=== PATIENT | male | born 1965 | race African-American/Black ===

== ENCOUNTER 2021-01-12 11:47 | Outpatient (REF) | payer MEDICARE, SELFPAY ==
[2021-01-12 13:41] LABS: Hematocrit 40.2 % (42-52); Hemoglobin 13.9 g/dl (14.0-18.0); Mean Corpuscular HGB Conc 34.6 g/dl (31.0-36.0); Mean Corpuscular Hemoglobin 30.7 pg (27.0-33.0); Mean Corpuscular Volume 88.7 fL (80-98); Mean Platelet Volume 10.8 fL (9.4-12.4); Platelet Count 328 X10*3/uL (160-400); Red Blood Count 4.53 X10*6/uL (4.60-5.80); Red Cell Distribution Width 13.1 % (11.0-16.0); White Blood Count 4.8 X10*3/uL (4.8-10.8)
[2021-01-12 14:11] LABS: Alanine Aminotransferase 21 U/L (0-40); Albumin Level 4.3 g/dL (3.5-5.0); Alkaline Phosphatase 95 U/L (39-117); Amylase 178 U/L (28-100); Aspartate Amino Transferase 18 U/L (5-37); Bilirubin Direct 0.2 mg/dL (0.0-0.5); Bilirubin Total 0.7 mg/dL (0.0-1.0); Lipase 30 U/L (8-78); Total Protein 7.2 g/dL (6.5-8.0)
== END 2021-01-12 11:48 | disposition home or self-care (01) ==
LOC: HO.HMGCLDS 11:47
PROVIDERS: PCP Internal Medicine; Visit Provider Physician Assistant
DX: R10.9 Unspecified abdominal pain (principal); R11.0 Nausea; R63.0 Anorexia; R19.7 Diarrhea, unspecified
CPT/HCPCS: 36415; 80076; 82150; 83690; 85027

== ENCOUNTER 2021-01-14 09:32 | Outpatient (REF) | payer MEDICARE, SELFPAY | END 2021-01-14 09:33 | disposition home or self-care (01) | LOC: HO.HMGCLNP 09:32 | PROVIDERS: Visit Provider Physician Assistant | DX: R19.7 Diarrhea, unspecified (principal); R63.0 Anorexia; R10.9 Unspecified abdominal pain | CPT/HCPCS: 87045; 87046; 87338 ==

== ENCOUNTER 2021-01-17 11:05 | Outpatient (REF) | payer MEDICARE, SELFPAY ==
[2021-01-17 14:32] LABS: Glucose Urine UA NEG (NEG); Leukocyte Esterase Urine NEG (NEG); Nitrite Urine NEG (NEG); Specific Gravity - Urine 1.015 (1.005-1.025); Urine Blood NEG (NEG); Urine Ketones NEG (NEG); Urine Protein NEG (NEG-TRACE)
[2021-01-17 14:42] LABS: Appearance Urine CLEAR; Color Urine YELLOW
[2021-01-17 14:49] LABS: Alanine Aminotransferase 31 U/L (0-40); Albumin Level 4.5 g/dL (3.5-5.0); Alkaline Phosphatase 98 U/L (39-117); Anion Gap 14 (12-20); Aspartate Amino Transferase 21 U/L (5-37); Bilirubin Total 0.9 mg/dL (0.0-1.0); Blood Urea Nitrogen 12 mg/dL (9-16); Calcium 10.3 mg/dL (8.4-10.2); Carbon Dioxide 35 mmol/L (22-29); Chloride 95 mmol/L (96-108); Estimated Glomerular Filt Rate > 60; Glucose Random 94 mg/dL (60-115); Potassium 3.7 mmol/L (3.3-5.1); Sodium 140 mmol/L (135-145); Total Protein 7.8 g/dL (6.5-8.0)
[2021-01-17 15:22] LABS: Erythrocyte Sedimentation Rate 17 MM/HR (0-15)
[2021-01-18 19:56] LABS: Gliadin Deamidated IgA Ab 5 Units; Gliadin Deamidated IgG Ab 2 Units
[2021-01-21 12:52] LABS: Transglutaminase Ab IgG 3 U/mL
== END 2021-01-17 11:06 | disposition home or self-care (01) ==
LOC: HO.10HDL 11:05
PROVIDERS: Visit Provider Internal Medicine
DX: R10.9 Unspecified abdominal pain (principal); R19.7 Diarrhea, unspecified; R11.2 Nausea with vomiting, unspecified; R01.1 Cardiac murmur, unspecified; E78.00 Pure hypercholesterolemia, unspecified; I10 Essential (primary) hypertension
CPT/HCPCS: 36415; 80053; 81003; 83516; 85652

== ENCOUNTER 2021-02-04 07:51 | Outpatient (REF) | payer MEDICARE, SELFPAY ==
--- NOTE | ~2021-02-04 | US_ITS ---
EXAMINATION: US ABDOMEN COMPLETE CLINICAL INFORMATION: Unspecified abdominal pain. COMPARISON: None TECHNIQUE: Real-time imaging of the abdominal viscera. FINDINGS: PANCREAS: Normal. ABDOMINAL AORTA: The proximal, mid, and distal segments are normal in caliber. INFERIOR VENA CAVA: Visualized portions are normal. LIVER: Normal. The liver is normal in size. The liver contour is normal. Parenchymal echogenicity is normal. No focal hepatic lesion. There is no intrahepatic biliary duct dilatation seen. GALLBLADDER: Normal. The gallbladder is physiologically distended without evidence of stones, sludge, polyps, wall thickening or pericholecystic fluid. COMMON BILE DUCT: Normal in caliber measuring 0.33 cm in diameter. RIGHT KIDNEY: Normal. No hydronephrosis. No renal calculi or focal parenchymal lesions. The kidney measures 8.9 cm in maximum dimension. LEFT KIDNEY: Normal. No hydronephrosis. No renal calculi or focal parenchymal lesions. The kidney measures 9.9 cm in maximum dimension. SPLEEN: Normal. The spleen measures 6.4 cm in maximum dimension. FREE FLUID: None. US/US abdomen complete IMPRESSION: Unremarkable complete abdomen ultrasound.
== END 2021-02-04 07:52 | disposition home or self-care (01) ==
LOC: HO.US 07:51
PROVIDERS: PCP Internal Medicine; Visit Provider Internal Medicine
DX: R10.9 Unspecified abdominal pain (principal); I25.10 Atherosclerotic heart disease of native coronary artery without angina pectoris; I10 Essential (primary) hypertension; E78.5 Hyperlipidemia, unspecified
CPT/HCPCS: 76700; 93005; 99202

== ENCOUNTER 2021-02-15 06:21 | Outpatient (REF) | payer MEDICARE, SELFPAY ==
[2021-02-15 07:38] LABS: Cholesterol 181 mg/dL; HDL Cholesterol 49 mg/dL; LDL Cholesterol Calculated 118 mg/dl; Triglycerides 73 mg/dL
== END 2021-02-15 06:22 | disposition home or self-care (01) ==
LOC: HO.LAB 06:21
PROVIDERS: PCP Internal Medicine; Visit Provider Internal Medicine Cardiovascular Disease
DX: I25.10 Atherosclerotic heart disease of native coronary artery without angina pectoris (principal)
CPT/HCPCS: 36415; 80061

== ENCOUNTER 2021-02-27 10:33 | Outpatient (REF) | payer MEDICARE, SELFPAY ==
--- NOTE | ~2021-02-27 | XR_ITS ---
EXAMINATION: LEFT FOOT AND ANKLE X-RAY CLINICAL INFORMATION: Pain COMPARISON: None TECHNIQUE: 3 views of the left foot and 3 views of the left ankle FINDINGS: Left ankle: Bone alignment is normal. No fracture or dislocation is seen. The ankle mortise is normal. Soft tissues are normal. Left foot: There is hallux valgus deformity at the first MTP joint. Bone alignment is otherwise normal. No fracture or dislocation. Small osteophytes at the first MTP joint. Otherwise normal joint spaces. Prominent talar beak or talar spur. This is seen with talar coalition. No evidence of bony coalition seen. Soft tissues are unremarkable. XR/XR foot LT min 3V IMPRESSION: Left ankle: Unremarkable exam. Left foot: Hallux valgus deformity at the first MTP joint and small osteophytes. Prominent anterior talar beak or osteophyte. This can be seen with talar coalition. No evidence of bony coalition seen by x-ray.
--- NOTE | ~2021-02-27 | XR_ITS ---
EXAMINATION: LEFT FOOT AND ANKLE X-RAY CLINICAL INFORMATION: Pain COMPARISON: None TECHNIQUE: 3 views of the left foot and 3 views of the left ankle FINDINGS: Left ankle: Bone alignment is normal. No fracture or dislocation is seen. The ankle mortise is normal. Soft tissues are normal. Left foot: There is hallux valgus deformity at the first MTP joint. Bone alignment is otherwise normal. No fracture or dislocation. Small osteophytes at the first MTP joint. Otherwise normal joint spaces. Prominent talar beak or talar spur. This is seen with talar coalition. No evidence of bony coalition seen. Soft tissues are unremarkable. XR/XR ankle LT min 3V IMPRESSION: Left ankle: Unremarkable exam. Left foot: Hallux valgus deformity at the first MTP joint and small osteophytes. Prominent anterior talar beak or osteophyte. This can be seen with talar coalition. No evidence of bony coalition seen by x-ray.
== END 2021-02-27 10:34 | disposition home or self-care (01) ==
LOC: HO.XRAY 10:33
PROVIDERS: PCP Internal Medicine; Visit Provider Internal Medicine
DX: M79.672 Pain in left foot (principal); M25.572 Pain in left ankle and joints of left foot
CPT/HCPCS: 73610; 73630

== ENCOUNTER → 2021-03-08 07:26 | Outpatient (REF) | payer MEDICARE, SELFPAY ==
--- NOTE | 2021-03-08 07:28 | CA_ITS ---
Transthoracic Echocardiogram Patient (Last, First, Middle): Melissa Gallagher, Gender: Male Date of : 1965 Age: 55 Procedure Date: 03/08/2021 Procedure Type: Transthoracic Echocardiogram Location: OP Height: 175.26 cm Weight: 79.38 kg BSA: 1.95 m2 Heart Rate: bpm BP: 118 / 60 mmHg Ore Grader: Referring MD: Zak Foster MD Symptoms: I42.9 - Cardiomyopathy, unspecified Study Quality: Good ECG Rhythm: Sinus Conclusions: - Normal left ventricular size and systolic function. - Diastolic function is normal for age. - Normal right ventricular cavity size and systolic function. - The left atrium is likely dilated. - There is mild tricuspid valve regurgitation. Findings Left Ventricle Normal left ventricular size and systolic function. There is mildly increased left ventricular wall thickness. The visually estimated ejection fraction is between 60-65%. There is no evidence of regional wall motion abnormalities. Diastolic function is normal for age. Right Ventricle Normal right ventricular cavity size and systolic function. Atria The left atrium is likely dilated. Aortic Valve Normal aortic valve structure and function. There is no aortic valve stenosis. There is no aortic valve regurgitation. Mitral Valve The mitral valve appears normal. There is trace mitral valve regurgitation. There is no mitral valve stenosis. Pulmonic Valve Normal pulmonic valve structure and function. There is trace pulmonic valve regurgitation. Tricuspid Valve Normal tricuspid valve structure. There is mild tricuspid valve regurgitation. Normal right atrial pressure. There is no evidence of pulmonary hypertension. Great Vessels All visible segments of the aorta are normal in size. The visualized portions of the pulmonary artery and branches are normal. Venous The inferior vena cava is normal in size and collapses greater than 50% with inspiration. Pericardium/Pleural There is no evidence of pericardial effusion. Prior Study Comparison No prior study available for comparison. Measurements 2D Linear Measurements IVSd: 1.25 0.6-0.9/0.6-1.0 cm LVIDd: 4.52 3.9-5.3/4.2-5.9 cm LVIDd Index: 2.32 2.4-3.2/2.2-3.1 cm/m2 LVIDs: 2.88 2.0-3.6 cm LVPWd: 1.26 0.7-1.1 cm Ao Root: 3.10 2.1-3.5 cm LA Diam: 3.90 2.7-3.8/3.0-4.0 cm LAIDs Index: 2.00 1.5-2.3 cm/m2 LV Mass: 265.29 67-162/88-224 g LV Mass Index: 136.04 43-95/49-115 g/m2 LVOT Diam: 2.20 3.0+(-)1.3 cm Mitral Valve MV Pk E: 0.81 MV PK A: 0.56 MV Decel Time: 246.00 E/A: 1.40 E'Lateral: 13.40 E'Medial: 9.79 E/E' Med: 8.20 E/E' Lat: 6.00 PHT: 72.00 MVA PHT: 3.06 Decel [place]: 3.28 Aortic Valve AoV Pk Dwayne: 1.72 AoV Mn Dwayne: 0.87 AoV VTI: 0.33 AoV Pk Grad: 12.00 Aov Mn Grad: 4.00 OSMIN Cont.VTI: 2.48 LVOT LVOT Pk Dwayne: 0.89 LVOT Mn Dwayne: 0.57 LVOT VTI: 0.22 LVOT Pk Grad: 3.00 LVOT Mn Grad: 2.00 LVOT Diam: 2.20 LVOT Area: 3.80 Diastolic Function MV Pk E: 0.81 MV Pk A: 0.56 E/A: 1.40 E'Medial: 9.79 E/E' Med: 8.20 E' Laterial: 13.40 E/E' Lat: 6.00 Tricuspid Valve TR Pk Dwayne: 2.44 TR Pk Grad: 24.00 Great Vessels Aorta Ao Root-2D: 3.10 2.0-3.7 cm Ao Asc: 3.10 2.1-3.4 cm Pulmonary Valve PV Pk Dwayne: 1.05 Peak PV Grad: 4.00 Updated in Other Vendor System with Status of Final Zak Foster MD electronically signed on 03/10/2021 1:32:31 PM with status of Final
--- NOTE | 2021-03-08 07:28 | CA_ITS ---
Acquisition Time: 2021-03-08 08:08:33 Total Exercise Time: 00:08:09 Test Indications: CP Medications: SEE CHART Protocol: ESA Max HR: 129 BPM 79% of Pred: 163 BPM Max BP: 218/040 mmHG Max Work Load: 10.1 METS Exercise stress test with exercise 8 min 9 sec acheiving heart rate 127, 78% MPHR with moderate shortness of breath, 7/10 mid chest tightness, lightheadedness and request to stop exercise, with isolated PVCs during exercise, with hypertensive response to exercise with max BP 218/40, with nondiagnostic EKG for ischemia due to suboptimal heart rate, without ST changes noted. In recovery his symptoms gradually resolved and BP returned to baseline. Test reviewed with Dr Foster. Referred By: Zak Foster Overread By: CHRIS NAYAK
== END ==
LOC: HO.CARD 07:26
PROVIDERS: PCP Internal Medicine; Visit Provider Internal Medicine Cardiovascular Disease
DX: I25.10 Atherosclerotic heart disease of native coronary artery without angina pectoris (principal); I42.9 Cardiomyopathy, unspecified
CPT/HCPCS: 93017; 93306

== ENCOUNTER → 2021-03-20 07:59 | Outpatient (BNVA) | payer MEDICARE, SELFPAY | PROVIDERS: PCP Internal Medicine; Visit Provider Physician Assistant | DX: R19.7 Diarrhea, unspecified (principal); R10.9 Unspecified abdominal pain; R29.2 Abnormal reflex; J39.2 Other diseases of pharynx; R11.0 Nausea; I25.10 Atherosclerotic heart disease of native coronary artery without angina pectoris; I10 Essential (primary) hypertension; E78.00 Pure hypercholesterolemia, unspecified; G47.33 Obstructive sleep apnea (adult) (pediatric); Z87.891 Personal history of nicotine dependence; Z95.5 Presence of coronary angioplasty implant and graft; Z99.89 Dependence on other enabling machines and devices; Z79.899 Other long term (current) drug therapy | CPT/HCPCS: 99202 ==

== ENCOUNTER → 2021-03-29 08:31 | Outpatient (REF) | payer MEDICARE, SELFPAY ==
--- NOTE | ~2021-03-29 | NM_ITS ---
Myocardial perfusion study Indication: Chest discomfort to evaluate for myocardial ischemia Technique: The patient was brought in for a Lexiscan perfusion study on 03/29/2021. Patient performed low-level exercise and was injected 0.4 mg of Lexiscan intravenously. Within a minute of injection, 25 mCi of sestamibi was given intravenously. Images were obtained using the SPECT gamma camera interlaced with the gating device. Images were obtained in supine position. Resting perfusion study was performed on 04/01/2021. Patient was administered 25 mCi of sestamibi intravenously at rest. Images were then obtained in supine position. Images obtained with and without CT attenuation. Total DLP 139 mGy-cm. Images were processed with the software and compared side to side in short axis, horizontal long axis and vertical long axis views. Findings: The stress perfusion study showed nonattenuated images show mildly reduced uptake in the basal and mid inferolateral and moderately reduced uptake in the apical inferolateral as well as mildly reduced uptake in the lateral wall of the LV myocardium. Remainder of the LV myocardium is normally perfused. Attenuation corrected images show normal uptake in all segments of myocardium with mildly reduced uptake in the apex of the LV myocardium.. The gated study shows normal LV systolic function with calculated LVEF of 65%. LV cavity is normal size. The gated study shows normal systolic wall thickening and contraction of segments. Resting study shows nonattenuated images show improved uptake in the lateral as well as inferolateral wall of the LV myocardium. Impression corrected images show no change in perfusion. This suggest over correction attenuation corrected images are stress perfusion study. Gating at rest reveals normal systolic wall motion with ejection fraction at 55%. The findings are consistent with nonattenuated images suggestive of reversible defect of the inferolateral and lateral wall suggestive of ischemia in circumflex territory. Attenuation corrected images appear to be artefactually over corrected. NM/NM robles perf SPECT rest & str Impression: 1. Myocardial perfusion imaging study shows mild to moderate intensity inferolateral and lateral ischemia in circumflex territory 2. Gated LVEF is 65% 3. Transient ischemic dilatation not present EKG is nondiagnostic for ischemia
--- NOTE | 2021-03-29 08:36 | CA_ITS ---
Acquisition Time: 2021-03-29 08:40:10 Total Exercise Time: 00:02:00 Test Indications: CP, SOB Medications: SEE CHART Protocol: LEXISCAN Max HR: 105 BPM 64% of Pred: 163 BPM Max BP: 148/078 mmHG Max Work Load: 1.0 METS Pharmacological stress test using Lexiscan while sitting and kicking his feet. Pt tolerated well. Denies any anginal sx. EKG without any arrhythmias, non-diagnostic for ischemia. Nuclear images to follow. Normotensive response to test. Test reviewed with Dr. Foster. Referred By: Yamila Estrella Overread By: Ankita Raya NP
== END ==
LOC: HO.CARD 08:31
PROVIDERS: Visit Provider Nurse Practitioner Family
DX: R07.89 Other chest pain (principal); R94.39 Abnormal result of other cardiovascular function study
CPT/HCPCS: 78452; 93017; A9500; J0280; J2785

== ENCOUNTER → 2021-04-03 08:44 | Outpatient (BNVA) | payer MEDICARE, SELFPAY | PROVIDERS: PCP Internal Medicine; Referring Provider Internal Medicine; Visit Provider Internal Medicine Cardiovascular Disease | DX: Z01.810 Encounter for preprocedural cardiovascular examination (principal); R94.39 Abnormal result of other cardiovascular function study; R00.2 Palpitations | CPT/HCPCS: 99212 ==

== ENCOUNTER → 2021-04-10 10:55 | Outpatient (REF) | payer MEDICARE, SELFPAY ==
--- NOTE | 2021-04-10 11:00 | HM_ITS ---
Underlying rhythm is sinus; Average ventricular rate 69/min; range 47-116/min; Rare PACs (0.05%); No PVCs noted; No atrial fibrillation or flutter; Patient events- dizziness/near syncope, short of breath, rapid heart beat - rhythm is sinus during these times; (Total monitoring time 2 days). MTDD
== END ==
LOC: HO.CARD 10:55
PROVIDERS: Visit Provider Internal Medicine Cardiovascular Disease
DX: R00.2 Palpitations (principal)
CPT/HCPCS: 93242

== ENCOUNTER 2021-05-15 07:25 | Day surgery (SDC) | payer MEDICARE, SELFPAY ==
[2021-05-09 14:18] VITALS: BMI 24.9
--- NOTE | 2021-05-10 12:43 | HO.ANESPROP2 ---
Documented by User: Christa Puckett NP 05/14/21 09:56 HPI - Anesthesia Eval Consult details Narrative: 55yo M for Upper Endoscopy and Colonoscopy Cardiac cleared @ [facility]: He is complaining of chest pain or shortness of breath.? Stress testing has been abnormal.? He also has GI issues ongoing.? He was able to exercise for 10 metabolic equivalents on treadmill.? I think he can proceed endoscopy with a intermediate risk for perioperative complications.? After the endoscopy we can pursue diagnostic angiography on him.? The reason for doing endoscopy before cardiac catheterization is that in case he has any significant coronary disease and we performed PCI then he will require dual antiplatelet therapy and may not be able to get endoscopy for few months.? I think he is not high risk for it given his functional capacity clearly being more than 4 metabolic equivalents. Case reviewed with Dr Stevie HERRERA Active Problems Active Problems: All Active Problems (Updated 05/09/21 @ 14:09 by Sally Ozuna RN) Frequent loose stools (Acute) Essential hypertension (Acute) Hyperlipidemia (Acute) Abnormal stress ECG with treadmill (Acute) Chest discomfort (Acute) Palpitations (Acute) Abnormal stress test (Acute) Preop cardiovascular exam (Acute) Left ankle pain (Acute) Left foot pain (Acute) Coronary artery disease (Acute) Overweight (BMI 25.0-29.9) (Acute) Seborrheic dermatitis of scalp (Acute) Cardiac murmur (Acute) Lumbar degenerative disc disease (Acute) Pure hypercholesterolemia (Acute) Benign essential hypertension (Acute) Obstructive sleep apnea (Acute) Diarrhea (Acute) Anorexia (Acute) Nausea (Acute) Abdominal pain (Acute) Past Medical History Medical History (Updated 05/09/21 @ 14:09 by Sally Ozuna RN) Abdominal pain Anorexia Benign essential hypertension Cardiac murmur Cervical disc disease Coronary artery disease COVID-19 vaccine series completed Diarrhea Left ankle pain Left foot pain Lumbar degenerative disc disease Nausea Obstructive sleep apnea Overweight (BMI 25.0-29.9) Pure hypercholesterolemia Seborrheic dermatitis of scalp Family History Family History Father Hypertension Mother Hypertension Surgical History Surgical History History of fusion of cervical spine History of heart artery stent S/P rotator cuff surgery Social History Social History Housing: House Alcohol intake: current Alcohol intake frequency: a few times a week Alcohol type: beer Patient Tobacco Use Status: Former Tobacco user Use of substances other than those prescribed or required for medical reasons: No Have you been hit, kicked, punched, or otherwise hurt by someone within the past year? If so, by whom?: No Are you DNR?: No Advance Directives Information Provided: Yes ( [place]) Advance Directives on File: No Recently lost weight without trying: No Eating poorly because of decreased appetite: No Nutrition Risks: No Nutritional Risk Poor oral hygiene: No service: Yes ([employer]) Current occupational status: [employer] Allergies Allergy/AdvReac Type Severity Reaction Status Date / Time No Known Allergies Allergy Verified 04/03/21 08:50 Home Medications Medication Instructions Recorded Confirmed Last Taken Type hydrochlorothiazide 25 mg tablet 25 mg PO DAILY 01/12/21 05/09/21 Unknown History aspirin 81 mg tablet,delayed 81 mg PO DAILY 01/17/21 05/09/21 05/14/21 History release Exam Exam Date and Time: May 10, 2021 1243 Height,Weight and Vital Signs: Height 5 ft 9 in Weight 76.657 kg Pertinent Lab Results Pertinent Lab Results: Laboratory Tests 01/12/21 01/17/21 12:00 11:11 WBC 4.8 Hgb 13.9 L Hct 40.2 L Plt Count 328 Sodium 140 Potassium 3.7 Chloride 95 L Carbon Dioxide 35 H BUN 12 Creatinine 1.06 Narrative Narrative: EKG 01/2021 Sinus bradycardia 55 beats per minute, minimal voltage criteria for left ventricular hypertrophy, QTC 384 milliseconds. ECHO 02/2021 Conclusions: - Normal left ventricular size and systolic function.? - Diastolic function is normal for age.? - Normal right ventricular cavity size and systolic function.? ? - The left atrium is likely dilated. ? - There is mild tricuspid valve regurgitation. ?? NM robles perf SPECT rest & str 03/2021 Impression: ? 1.? Myocardial perfusion imaging study shows mild to moderate intensity inferolateral and lateral ischemia in circumflex territory 2.? Gated LVEF is 65% 3. Transient ischemic dilatation not present ? EKG is nondiagnostic for ischemia Assessment and Plan Assessment Anesthesia Assessment: Chart Reviewed Documented by User: Alyce Villalpando MD 05/15/21 08:18 [facility] Past Medical History Medical History (Updated 05/09/21 @ 14:09 by Sally Ozuna RN) Abdominal pain Anorexia Benign essential hypertension Cardiac murmur Cervical disc disease Coronary artery disease COVID-19 vaccine series completed Diarrhea Left ankle pain Left foot pain Lumbar degenerative disc disease Nausea Obstructive sleep apnea Overweight (BMI 25.0-29.9) Pure hypercholesterolemia Seborrheic dermatitis of scalp Family History Family History Father Hypertension Mother Hypertension Family history of problems with anesthesia: No Surgical History Surgical History History of fusion of cervical spine History of heart artery stent S/P rotator cuff surgery History of Problems with Anesthesia: No Social History Social History Housing: House Alcohol intake: current Alcohol intake frequency: a few times a week Alcohol type: beer Patient Tobacco Use Status: Former Tobacco user Use of substances other than those prescribed or required for medical reasons: No Have you been hit, kicked, punched, or otherwise hurt by someone within the past year? If so, by whom?: No Are you DNR?: No Advance Directives Information Provided: Yes ( [place]) Advance Directives on File: No Recently lost weight without trying: No Eating poorly because of decreased appetite: No Nutrition Risks: No Nutritional Risk Poor oral hygiene: No service: Yes ([employer]) Current occupational status: disabled Meds Allergies Allergy/AdvReac Type Severity Reaction Status Date / Time No Known Allergies Allergy Verified 04/03/21 08:50 Home Medications Medication Instructions Recorded Confirmed Last Taken Type hydrochlorothiazide 25 mg tablet 25 mg PO DAILY 01/12/21 05/09/21 Unknown History aspirin 81 mg tablet,delayed 81 mg PO DAILY 01/17/21 05/09/21 05/14/21 History release Exam Airway Mallampati Class: II (Missing some teeth, nothing loose) TM Dist: >3cm Neck ROM: Full Heart: rrr Lungs: cta bl Assessment and Plan Assessment Anesthesia Assessment: Anesthesia Plan Discussed and Chart Reviewed Final Anesthetic Review Family History of Problems with Anesthesia: No History of Problems with Anesthesia: No NPO: Yes ASA Class: III Final Preanesthetic Review: No Changes in Pt Med Stat, Meds/Allgs Chart Reviewed and Consent Obtained/Reviewed Patient Risk: Intermediate Procedure Risk: Intermediate Anesthetic Plan Anesthetic Plan: MAC: Disposition: Standard PACU
[2021-05-15 07:41] VITALS: BP 168/81; PULSE 78; RESP 19; TEMP 36.3; O2SAT 95
[2021-05-15] MEDS: Lactated Ringers 1,000 ML 100 ML IVCONT (08:01)
--- NOTE | 2021-05-15 08:39 | P.HPSUR_ITS ---
Pre-Procedural Eval Section A Date of Service: 05/15/21 Section B Chief Complaint: diarrhea,nausea Relevant Family History (Specify if Yes): No Relevant Social History: Other (specify) ([place]) Present Medications: see Short Stay Collaborative assessment Medical History: Significant History (Abdominal pain Anorexia Benign essential hypertension Cardiac murmur Cervical disc disease Coronary artery disease COVID- 19 vaccine series completed Diarrhea Left ankle pain Left foot pain Lumbar degenerative disc disease Nausea Obstructive sleep apnea Overweight (BMI 25.0- 29.9) Pure hypercholestero) History of Previous Operations: Relevant previous surgery/procedure and date(s) (rotator cuff, coronary stent) Allergies: Allergies Allergy/AdvReac Type Severity Reaction Status Date / Time No Known Allergies Allergy Verified 04/03/21 08:50 Review of Systems Sugical H&P ROS: Negative: Constitution, Cardiovascular, Respiratory, Neurological, Psychiatric, Hem-Onc, Allergic/Immunologic, Gastrointestinal, Genitourinary, Musculoskeletal, Integumentary, Endocrine and Ey es/Ears/Nose/Throat Exam Surgical H&P Exam: Normal: HEENT, Normal: Heart, Normal: Lungs, Normal: Extremities, Normal: Abdomen, Normal: Skin and Normal: Neurological Plan Diagnosis/Plan: Unchanged I have reviewed the history and physical and performed a pertinent physical examination on my patient. No changes have occurred unless specified.
--- NOTE | 2021-05-15 08:40 | PM.OP ---
Brief Operative Note Date of Service: 05/15/21 Pre-op diagnosis: diarrhea, abdo pain, nausea Post-op diagnosis: same Procedure: see op note Surgeon: Lalitha Valadez MD Anesthesia: MAC Was an Buffing Turner And Counter used for this Procedure?: No Estimated blood loss (mL): 0 Condition: stable Disposition: PACU
--- NOTE | 2021-05-15 09:20 | W.PM.OPN ---
Operative Note Operative Note Date of Service: 05/15/21 Narrative: Operative Information Procedure Description: EGD, Colonoscopy FLEXIBLE TRANSORAL UPPER GASTROINTESTINAL ENDOSCOPY AND COLONOSCOPY PROCEDURE NOTE UPPER ENDOSCOPY Consent: Indications for the procedure and potential complications of bleeding, perforation, reaction to medications and missed diagnosis were discussed with the patient and informed consent was obtained. Instrument: Olympus GIF H 190 J mid size upper endoscope Monitoring: Vital signs and clinical assessment, continuous EKG monitoring, Pulse oximetry, Carbon Dioxide monitoring and blood pressure monitoring were done throughout the procedure. Procedure: The patient was placed in the left lateral decubitis position and pre-procedure medications were administered and a bite block was placed. The endoscope was inserted into the mouth and advanced under direct vision to the third part of duodenum. A careful inspection was made as the upper endoscope was withdrawn including a retroflexed examination of the proximal stomach; Findings and interventions are described below. Findings: Larynx:normal Esophagus: GE junction at 42 cm, diaphragm hiatus at 42 cm, normal mucosa -random bx taken Stomach: Patchy erythema. Biopsies were obtained. Grade 2 flap valve on retroflexed examination of the cardia. Duodenum: Normal bulb and descending duodenum, bx taken Intervention: Biopsies as noted above COLONOSCOPY Instrument: Olympus variable stiffness pediatric scope 190L Colonoscopy Monitoring: Vital signs and clinical assessment, continuous EKG monitoring, Pulse oximetry, Carbon Dioxide monitoring and blood pressure monitoring were done throughout the procedure. Colon withdrawal time was 18 minutes. Procedure: The patient was placed in the left lateral decubitis position and pre-procedure medications were administered. After a digital rectal examination of the ano-rectum, the video colonoscope was inserted into the rectum and advanced through the colon to the cecum/TI. The colonoscope was slowly withdrawn in a retrograde panoramic fashion and the colon mucosa was carefully examined including a retroflexed view of the rectum. Findings and interventions are described below. Procedure Difficulty:easy Findings: Terminal Ileum-normal, bx taken random colon bx taken Cecum:normal Ascending Colon: 5-7 mm sessile polyp removed with forceps, 10 mm sessile polyp removed with cold snare Transverse Colon -normal Descending Colon:normal Sigmoid Colon: x 2 sessile polyps 11-12 mm removed with cold snare Rectum: Retroflexion with small internal hemorrhoids, grade I Anorectum - normal Colon preparation: [place] Bowel Preparation Scale Right colon; 2 Transverse colon: 2 Left colon; 2 (0 = Unprepared colon segment with mucosa not seen due to solid stool that cannot be cleared. 1 = Portion of mucosa of the colon segment seen, but other areas of the colon segment not well seen due to staining, residual stool and/or opaque liquid. 2 = Minor amount of residual staining, small fragments of stool and/or opaque liquid, but mucosa of colon segment seen well. 3 = Entire mucosa of colon segment seen well with no residual staining, small fragments of stool or opaque liquid) Impression and Post Procedure Diagnosis: Endoscopy Findings: gastritis Colonoscopy Findings: polyps internal hemorrhoids Plan: Await Pathology results Repeat Colonoscopy in 3-4 years due to polyps or earlier if clinically indicated High fiber diet leaflet avoid straining at stool, epsom salts and sitz bath, anusol supps or cream if h pylori pos then treat Above findings were reviewed with the patient and relevant handouts were provided if indicated.
[2021-05-15 09:23] VITALS: BP 125/68; PULSE 69; RESP 16; TEMP 36.4; O2SAT 100
[2021-05-15 09:38] VITALS: BP 139/73; PULSE 72; RESP 16; TEMP 36.4; O2SAT 100
== END 2021-05-15 10:17 ==
LOC: HO.SSS 07:26
PROVIDERS: PCP Internal Medicine; Visit Provider Internal Medicine Gastroenterology
PROC: (CPT 45385; principal; 2021-05-15 08:30)
DX: R19.7 Diarrhea, unspecified (principal); R11.0 Nausea; D12.2 Benign neoplasm of ascending colon; D12.5 Benign neoplasm of sigmoid colon; K64.0 First degree hemorrhoids; K29.70 Gastritis, unspecified, without bleeding; I10 Essential (primary) hypertension
CPT/HCPCS: 45385; 45380; 43239; 88305; 88342

== ENCOUNTER → 2021-06-03 09:35 | Outpatient (BNVA) | payer MEDICARE, SELFPAY | PROVIDERS: PCP Internal Medicine; Referring Provider Internal Medicine; Visit Provider Internal Medicine Cardiovascular Disease | DX: I10 Essential (primary) hypertension (principal); R94.39 Abnormal result of other cardiovascular function study; R00.2 Palpitations | CPT/HCPCS: 99212 ==

== ENCOUNTER → 2021-06-05 09:29 | Outpatient (BNVA) | payer MEDICARE, SELFPAY | PROVIDERS: PCP Internal Medicine; Referring Provider Internal Medicine; Visit Provider Physician Assistant | DX: R19.7 Diarrhea, unspecified (principal); D12.6 Benign neoplasm of colon, unspecified | CPT/HCPCS: 99212 ==

== ENCOUNTER → 2021-07-01 10:17 | Outpatient (REF) | payer MEDICARE, SELFPAY | LOC: HO.SL 10:17 | PROVIDERS: PCP Internal Medicine; Visit Provider Nurse Practitioner Family | DX: G47.33 Obstructive sleep apnea (adult) (pediatric) (principal) | CPT/HCPCS: 95806 ==

== ENCOUNTER → 2021-07-11 12:27 | Outpatient (BNVA) | payer MEDICARE, SELFPAY | PROVIDERS: PCP Internal Medicine; Referring Provider Internal Medicine; Visit Provider Internal Medicine Cardiovascular Disease | DX: I10 Essential (primary) hypertension (principal); R07.89 Other chest pain; R94.39 Abnormal result of other cardiovascular function study | CPT/HCPCS: 99212 ==

== ENCOUNTER 2021-08-03 10:07 | Outpatient (REF) | payer MEDICARE, SELFPAY ==
[2021-08-03 11:04] LABS: Basophils Percent Auto 0.4 % (0-2); Eosinophils Absolute Auto 0.1 X10*3/uL (0.0-0.4); Eosinophils Percent Auto 1.1 % (0-4); Hematocrit 39.8 % (42.0-52.0); Hemoglobin 13.6 g/dl (14.0-18.0); Lymphocytes Absolute Auto 2.9 X10*3/uL (1.2-4.9); Lymphocytes Percent Auto 60.6 % (20-40); MANUAL DIFF FLAG SCAN; Mean Corpuscular HGB Conc 34.2 g/dl (31.0-36.0); Mean Corpuscular Hemoglobin 31.1 pg (27.0-33.0); Mean Corpuscular Volume 91.1 fL (80.0-98.0); Mean Platelet Volume 10.9 fL (9.4-12.4); Monocytes Absolute Auto 0.4 X10*3/uL (0.1-1.2); Monocytes Percent Auto 8.1 % (2-11); Neutrophils Absolute Auto 1.4 x10*3/uL (2.0-8.3); Neutrophils Percent Auto 29.8 % (45-73); Platelet Count 304 X10*3/uL (160-400); Red Blood Count 4.37 X10*6/uL (4.60-5.80); Red Cell Distribution Width 13.5 % (11.0-16.0); SCAN SMEAR FLAG 1; White Blood Count 4.7 X10*3/uL (4.8-10.8)
[2021-08-03 11:48] LABS: SLIDE REVIEW VERIFIED
== END 2021-08-03 10:08 | disposition home or self-care (01) ==
LOC: HO.LAB 10:07
PROVIDERS: PCP Internal Medicine; Visit Provider Internal Medicine Cardiovascular Disease
DX: I25.10 Atherosclerotic heart disease of native coronary artery without angina pectoris (principal); E78.00 Pure hypercholesterolemia, unspecified; I10 Essential (primary) hypertension; R10.9 Unspecified abdominal pain; E66.3 Overweight; M25.572 Pain in left ankle and joints of left foot; M79.672 Pain in left foot
CPT/HCPCS: 36415; 85025

== ENCOUNTER → 2021-08-19 13:08 | Outpatient (BNVA) | payer MEDICARE, SELFPAY | PROVIDERS: PCP Internal Medicine; Referring Provider Internal Medicine; Visit Provider Internal Medicine Cardiovascular Disease | DX: R00.2 Palpitations (principal); R07.89 Other chest pain | CPT/HCPCS: 99212 ==

== ENCOUNTER 2021-08-30 07:56 | Outpatient (REF) | payer MEDICARE, SELFPAY ==
[2021-08-30 08:16] LABS: MANUAL DIFF FLAG NO
[2021-08-30 08:41] LABS: Basophils Percent Auto 0.4 % (0-2); Eosinophils Absolute Auto 0.1 X10*3/uL (0.0-0.4); Eosinophils Percent Auto 1.8 % (0-4); Hematocrit 42.5 % (42.0-52.0); Hemoglobin 14.4 g/dl (14.0-18.0); Imm Gran Abs Auto 0.01 X10*3/uL (0.00-0.03); Imm Gran Pct Auto 0.2 % (0.0-0.4); Lymphocytes Absolute Auto 2.3 X10*3/uL (1.2-4.9); Lymphocytes Percent Auto 50.9 % (20-40); Mean Corpuscular HGB Conc 33.9 g/dl (31.0-36.0); Mean Corpuscular Hemoglobin 30.8 pg (27.0-33.0); Mean Corpuscular Volume 90.8 fL (80.0-98.0); Mean Platelet Volume 10.4 fL (9.4-12.4); Monocytes Absolute Auto 0.4 X10*3/uL (0.1-1.2); Monocytes Percent Auto 9.2 % (2-11); Neutrophils Absolute Auto 1.7 x10*3/uL (2.0-8.3); Neutrophils Percent Auto 37.5 % (45-73); Platelet Count 299 X10*3/uL (160-400); Red Blood Count 4.68 X10*6/uL (4.60-5.80); Red Cell Distribution Width 13.2 % (11.0-16.0); White Blood Count 4.6 X10*3/uL (4.8-10.8)
[2021-08-30 09:02] LABS: Alanine Aminotransferase 19 U/L (0-40); Albumin Level 4.3 g/dL (3.5-5.0); Alkaline Phosphatase 81 U/L (39-117); Anion Gap 12 (12-20); Aspartate Amino Transferase 17 U/L (5-37); Bilirubin Total 1.1 mg/dL (0.0-1.0); Blood Urea Nitrogen 8 mg/dL (9-16); Carbon Dioxide 30 mmol/L (22-29); Chloride 105 mmol/L (96-108); Cholesterol 285 mg/dL; Estimated Glomerular Filt Rate > 60; Glucose Fasting 99 mg/dL (60-99); HDL Cholesterol 61 mg/dL; LDL Cholesterol Calculated 200 mg/dl; Potassium 4.3 mmol/L (3.3-5.1); Sodium 143 mmol/L (135-145); Total Protein 7.4 g/dL (6.5-8.0); Triglycerides 120 mg/dL
[2021-08-30 09:27] LABS: Prostate Specific Antigen Scr 0.64 ng/mL (<0.05-4.0)
[2021-08-30 10:34] LABS: Creatinine Urine 334.56 mg/dL; Microalbum/Creatinine Ratio Ur 10.4 ug/mg cr
== END 2021-08-30 07:57 | disposition home or self-care (01) ==
LOC: HO.LAB 07:56
PROVIDERS: PCP Internal Medicine; Visit Provider Nurse Practitioner Family
DX: Z12.5 Encounter for screening for malignant neoplasm of prostate (principal); I10 Essential (primary) hypertension; E11.9 Type 2 diabetes mellitus without complications; E78.00 Pure hypercholesterolemia, unspecified
CPT/HCPCS: 36415; 80053; 80061; 82043; 84153; 85025

== ENCOUNTER → 2021-09-03 10:58 | Outpatient (BNVA) | payer MEDICARE, SELFPAY | PROVIDERS: PCP Internal Medicine; Referring Provider Internal Medicine; Visit Provider Psychiatry & Neurology Neurology | DX: G47.33 Obstructive sleep apnea (adult) (pediatric) (principal); G47.62 Sleep related leg cramps | CPT/HCPCS: 99202 ==

== ENCOUNTER → 2021-09-05 08:19 | Outpatient (REF) | payer MEDICARE, SELFPAY ==
--- NOTE | 2021-09-05 08:23 | HM_ITS ---
Conclusion: 1. Patient was monitored for total period of 13 days and 10 hours. 2. Baseline rhythm is sinus rhythm with average heart rate of 73 beats per minute 3. No significant pauses or bradycardia noted 4. Fifteen total episodes of supraventricular tachycardia with the longest episode lasting 13 beats 5. Rare ectopy noted with total burden of 0.02% 6. Patient reported event correlated with sinus tachycardia. MTDD
== END ==
LOC: HO.CARD 08:19
PROVIDERS: Visit Provider Internal Medicine Cardiovascular Disease
DX: R00.2 Palpitations (principal)
CPT/HCPCS: 93246

== ENCOUNTER 2021-11-27 09:00 | Outpatient (RCR) | payer OTHER, SELFPAY ==
[2021-11-22 13:03] VITALS: BP 122/69; PULSE 62
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
--- NOTE | 2021-12-16 10:43 | MHC.PT.DC ---
[facility] [place] Office [place] Office [place] Office [address] Alan Calderon [address] [phone] F: [phone] F: [phone] F: [phone] F: [phone] Physical Therapy Discharge Report Diagnosis: Low back pain Date of Surgery: NA Date of Evaluation: 11/22/21 Date of Discharge: 12/16/21 Treatments to Date: 3 Cancellations to Date: 0 No Shows to Date: Discharge Status: Visit Non-compliance Discharge Summary: Melissa has had 3 no shows and 1 cancellation. He is therefore being d/c from PT for non compliance. Electronically signed by: Sindy Malloy PT DPT Please sign and return to therapist. Thank you for your referral.
== END 2021-12-16 10:44 | disposition home or self-care (01) ==
LOC: HO.PT 09:00
PROVIDERS: PCP Internal Medicine; Visit Provider Internal Medicine
DX: M54.50 Low back pain, unspecified (principal)
CPT/HCPCS: 97110; 97112; 97161

== ENCOUNTER 2021-12-02 06:08 | Outpatient (REF) | payer OTHER, SELFPAY ==
[2021-12-02 06:19] LABS: MANUAL DIFF FLAG NO
[2021-12-02 07:11] LABS: Appearance Urine HAZY; Color Urine YELLOW; Glucose Urine UA NEG (NEG); Leukocyte Esterase Urine NEG (NEG); Nitrite Urine NEG (NEG); Specific Gravity - Urine >= 1.030 (1.005-1.025); UACC Culture Trigger NO; Urine Blood TRACE (NEG); Urine Ketones NEG (NEG); Urine Protein NEG (NEG-TRACE)
[2021-12-02 07:15] LABS: Basophils Percent Auto 0.2 % (0-2); Eosinophils Absolute Auto 0.2 X10*3/uL (0.0-0.4); Eosinophils Percent Auto 2.7 % (0-4); Hematocrit 44.4 % (42.0-52.0); Hemoglobin 14.9 g/dl (14.0-18.0); Imm Gran Abs Auto 0.01 X10*3/uL (0.00-0.03); Imm Gran Pct Auto 0.2 % (0.0-0.4); Lymphocytes Absolute Auto 3.1 X10*3/uL (1.2-4.9); Mean Corpuscular HGB Conc 33.6 g/dl (31.0-36.0); Mean Corpuscular Hemoglobin 31.1 pg (27.0-33.0); Mean Corpuscular Volume 92.7 fL (80.0-98.0); Mean Platelet Volume 10.8 fL (9.4-12.4); Monocytes Absolute Auto 0.4 X10*3/uL (0.1-1.2); Monocytes Percent Auto 7.2 % (2-11); Neutrophils Absolute Auto 2.2 x10*3/uL (2.0-8.3); Neutrophils Percent Auto 36.7 % (45-73); Platelet Count 321 X10*3/uL (160-400); Red Blood Count 4.79 X10*6/uL (4.60-5.80); Red Cell Distribution Width 13.4 % (11.0-16.0); White Blood Count 5.9 X10*3/uL (4.8-10.8)
[2021-12-02 07:24] LABS: Mucus Urine 1+ /LPF; RBC Urine 0-2 /HPF (0); Squamous Epithelial Cell Urine TRACE /LPF; WBC Urine 0 /HPF (0-4)
[2021-12-02 07:36] LABS: Alanine Aminotransferase 33 U/L (0-40); Albumin Level 4.3 g/dL (3.5-5.0); Alkaline Phosphatase 96 U/L (39-117); Anion Gap 11 (12-20); Aspartate Amino Transferase 22 U/L (5-37); Bilirubin Total 0.6 mg/dL (0.0-1.0); Blood Urea Nitrogen 13 mg/dL (9-16); Calcium 9.7 mg/dL (8.4-10.2); Carbon Dioxide 30 mmol/L (22-29); Chloride 104 mmol/L (96-108); Cholesterol 204 mg/dL; Estimated Glomerular Filt Rate > 60; Glucose Fasting 103 mg/dL (60-99); HDL Cholesterol 48 mg/dL; LDL Cholesterol Calculated 132 mg/dl; Potassium 4.4 mmol/L (3.3-5.1); Sodium 141 mmol/L (135-145); Total Protein 7.1 g/dL (6.5-8.0); Triglycerides 121 mg/dL
[2021-12-02 07:46] LABS: Erythrocyte Sedimentation Rate 5 MM/HR (0-15)
[2021-12-02 07:51] LABS: Uric Acid 4.7 mg/dL (3.4-7.0)
[2021-12-02 07:55] LABS: TSH reflex Free T4 0.88 uIU/mL (0.32-4.0); Vitamin D 25-OH Total 10.6 ng/mL (>30)
== END 2021-12-02 06:09 | disposition home or self-care (01) ==
LOC: HO.LAB 06:08
PROVIDERS: PCP Internal Medicine; Visit Provider Internal Medicine
DX: M25.572 Pain in left ankle and joints of left foot (principal); M79.672 Pain in left foot; I10 Essential (primary) hypertension; I25.10 Atherosclerotic heart disease of native coronary artery without angina pectoris; R10.9 Unspecified abdominal pain; E78.00 Pure hypercholesterolemia, unspecified; E55.9 Vitamin D deficiency, unspecified
CPT/HCPCS: 36415; 80053; 80061; 81001; 82306; 84443; 84550; 85025; 85652

== ENCOUNTER 2021-12-05 11:33 | Outpatient (REF) | payer OTHER, SELFPAY ==
--- NOTE | ~2021-12-05 | XR_ITS ---
EXAMINATION: XR KNEE, RIGHT CLINICAL INFORMATION: Right knee pain COMPARISON: None TECHNIQUE: Three views of the right knee. FINDINGS: No fracture or dislocation. No suprapatellar joint effusion. Joint spaces are maintained. No significant degenerative changes. No soft tissue swelling of the anterior knee. XR/XR knee RT 3V IMPRESSION: Unremarkable radiographs of the right knee.
== END 2021-12-05 11:34 | disposition home or self-care (01) ==
LOC: HO.XRAY 11:33
PROVIDERS: PCP Internal Medicine; Visit Provider Internal Medicine
DX: M25.561 Pain in right knee (principal)
CPT/HCPCS: 73562

== ENCOUNTER → 2022-01-22 13:43 | Outpatient (BNVA) | payer OTHER, SELFPAY | PROVIDERS: PCP Internal Medicine; Referring Provider Internal Medicine; Visit Provider Internal Medicine Cardiovascular Disease | DX: R06.02 Shortness of breath (principal) | CPT/HCPCS: 99212 ==

== ENCOUNTER 2022-02-21 14:53 | Outpatient (REF) | payer OTHER, SELFPAY ==
--- NOTE | 2022-02-21 17:38 | PFT_ITS ---
INDICATION: Shortness of breath. SPIROMETRY: FEV1 to FVC of 86% with an FEV1 of 3.49 L, which is 134% predicted, an FVC of 4.08 L, which is 122% predicted. No significant response to bronchodilators noted. Maximum voluntary ventilation 91% predicted. LUNG VOLUMES: Total lung capacity 107% predicted. DIFFUSION CAPACITY: DLCO 98% predicted. INTERPRETATION: No obstructive nor restrictive ventilatory defects have been identified. No significant response to bronchodilators noted. Normal lung volumes and normal diffusion capacity. If asthma is in the differential, methacholine challenge may be helpful in assessing for hyper-reactive airways, otherwise clinical correlation warranted. MD JUDITH Wilks/MODL / [id number]
== END 2022-02-21 14:54 | disposition home or self-care (01) ==
LOC: HO.RESP 14:53
PROVIDERS: PCP Internal Medicine; Visit Provider Internal Medicine Cardiovascular Disease
DX: R06.02 Shortness of breath (principal)
CPT/HCPCS: 94060; 94727; 94729

== ENCOUNTER → 2022-03-05 11:29 | Outpatient (BNVA) | payer OTHER, SELFPAY | PROVIDERS: PCP Internal Medicine; Visit Provider Psychiatry & Neurology Neurology | DX: G47.33 Obstructive sleep apnea (adult) (pediatric) (principal); G47.62 Sleep related leg cramps | CPT/HCPCS: 99212 ==

== ENCOUNTER 2022-03-06 06:18 | Outpatient (REF) | payer OTHER, SELFPAY ==
[2022-03-06 07:17] LABS: Basophils Percent Auto 0.6 % (0-2); Eosinophils Absolute Auto 0.1 X10*3/uL (0.0-0.4); Eosinophils Percent Auto 2.7 % (0-4); Hematocrit 39.6 % (42.0-52.0); Hemoglobin 13.7 g/dl (14.0-18.0); Lymphocytes Absolute Auto 3.6 X10*3/uL (1.2-4.9); Lymphocytes Percent Auto 69.1 % (20-40); MANUAL DIFF FLAG SCAN; Mean Corpuscular HGB Conc 34.6 g/dl (31.0-36.0); Mean Corpuscular Hemoglobin 31.5 pg (27.0-33.0); Mean Platelet Volume 10.7 fL (9.4-12.4); Monocytes Absolute Auto 0.4 X10*3/uL (0.1-1.2); Monocytes Percent Auto 7.6 % (2-11); Neutrophils Absolute Auto 1.1 x10*3/uL (2.0-8.3); Platelet Count 304 X10*3/uL (160-400); Red Blood Count 4.35 X10*6/uL (4.60-5.80); Red Cell Distribution Width 12.9 % (11.0-16.0); SCAN SMEAR FLAG 1; White Blood Count 5.3 X10*3/uL (4.8-10.8)
[2022-03-06 07:37] LABS: Alanine Aminotransferase 27 U/L (0-40); Alkaline Phosphatase 88 U/L (39-117); Anion Gap 11 (12-20); Aspartate Amino Transferase 26 U/L (5-37); Bilirubin Total 0.4 mg/dL (0.0-1.0); Blood Urea Nitrogen 13 mg/dL (9-16); Calcium 9.4 mg/dL (8.4-10.2); Carbon Dioxide 28 mmol/L (22-29); Chloride 107 mmol/L (96-108); Cholesterol 268 mg/dL; Estimated Glomerular Filt Rate > 60; Glucose Fasting 92 mg/dL (60-99); HDL Cholesterol 38 mg/dL; Potassium 4.2 mmol/L (3.3-5.1); Sodium 142 mmol/L (135-145); Triglycerides 781 mg/dL
[2022-03-06 08:01] LABS: Prostate Specific Antigen Scr 0.53 ng/mL (<0.05-4.0); TSH reflex Free T4 1.22 uIU/mL (0.32-4.0); Vitamin D 25-OH Total 16.8 ng/mL (>30)
[2022-03-06 08:05] LABS: Appearance Urine CLEAR; Color Urine YELLOW; Glucose Urine UA NEG (NEG); Leukocyte Esterase Urine NEG (NEG); Nitrite Urine NEG (NEG); PH 6.5 (5.0-8.0); Specific Gravity - Urine 1.025 (1.005-1.025); UACC Culture Trigger NO; Urine Blood TRACE (NEG); Urine Ketones NEG (NEG); Urine Protein NEG (NEG-TRACE)
[2022-03-06 08:22] LABS: SLIDE REVIEW VERIFIED
[2022-03-06 09:10] LABS: Squamous Epithelial Cell Urine TRACE /LPF; WBC Urine 0 /HPF (0-4)
== END 2022-03-06 06:19 | disposition home or self-care (01) ==
LOC: HO.LAB 06:18
PROVIDERS: PCP Internal Medicine; Visit Provider Internal Medicine
DX: Z00.00 Encounter for general adult medical examination without abnormal findings (principal); Z12.5 Encounter for screening for malignant neoplasm of prostate; I25.10 Atherosclerotic heart disease of native coronary artery without angina pectoris; E55.9 Vitamin D deficiency, unspecified; I10 Essential (primary) hypertension; E78.00 Pure hypercholesterolemia, unspecified
CPT/HCPCS: 36415; 80048; 80053; 80061; 81001; 81003; 82306; 84153; 84443; 85025

== ENCOUNTER 2022-04-01 10:53 | Outpatient (REF) | payer OTHER, SELFPAY ==
--- NOTE | ~2022-04-01 | XR_ITS ---
EXAMINATION: XR FOOT, LEFT CLINICAL INFORMATION: Left foot pain. COMPARISON: 02/27/2021 TECHNIQUE: AP, lateral, and oblique views of the left foot. FINDINGS: Hallux valgus with mild spurring along the medial eminence of the 1st metatarsal head. Mild 1st MTP joint osteoarthritis. No change. Prominent dorsal spurring of the distal talus. XR/XR foot LT min 3V IMPRESSION: Hallux valgus and degenerative findings as described, no change.
== END 2022-04-01 10:54 | disposition home or self-care (01) ==
LOC: HO.XRAY 10:53
PROVIDERS: PCP Internal Medicine; Visit Provider Internal Medicine
DX: M79.672 Pain in left foot (principal); M79.675 Pain in left toe(s)
CPT/HCPCS: 73630

== ENCOUNTER → 2022-04-03 10:57 | Outpatient (BNVA) | payer OTHER, SELFPAY | PROVIDERS: PCP Internal Medicine; Visit Provider Nurse Practitioner Family | DX: G47.33 Obstructive sleep apnea (adult) (pediatric) (principal); M54.50 Low back pain, unspecified; G47.62 Sleep related leg cramps | CPT/HCPCS: 99212 ==

== ENCOUNTER 2022-06-23 06:02 | Outpatient (REF) | payer OTHER, SELFPAY ==
[2022-06-23 07:57] LABS: Alanine Aminotransferase 22 U/L (0-40); Albumin Level 4.3 g/dL (3.5-5.0); Alkaline Phosphatase 93 U/L (39-117); Anion Gap 13 (12-20); Aspartate Amino Transferase 16 U/L (5-37); Bilirubin Total 0.7 mg/dL (0.0-1.0); Blood Urea Nitrogen 8 mg/dL (9-16); Calcium 9.5 mg/dL (8.4-10.2); Carbon Dioxide 27 mmol/L (22-29); Chloride 106 mmol/L (96-108); Cholesterol 181 mg/dL; Estimated Glomerular Filt Rate > 60; Glucose Fasting 109 mg/dL (60-99); HDL Cholesterol 51 mg/dL; LDL Cholesterol Calculated 113 mg/dl; Potassium 3.9 mmol/L (3.3-5.1); Sodium 142 mmol/L (135-145); Triglycerides 87 mg/dL
[2022-06-23 08:04] LABS: Appearance Urine Clear; Color Urine Yellow; Glucose Urine UA Negative (Negative); Leukocyte Esterase Urine Negative (Negative); Nitrite Urine Negative (Negative); PH 5.5 (5.0-9.0); Specific Gravity - Urine <= 1.005 (1.005-1.025); Urine Blood Negative (Negative); Urine Ketones Negative (Negative); Urine Protein Negative (Neg-Trace)
[2022-06-23 08:17] LABS: TSH reflex Free T4 1.35 uIU/mL (0.32-4.0)
== END 2022-06-23 06:03 | disposition home or self-care (01) ==
LOC: HO.LAB 06:02
PROVIDERS: PCP Internal Medicine; Visit Provider Internal Medicine
DX: E78.00 Pure hypercholesterolemia, unspecified (principal); E66.3 Overweight; I10 Essential (primary) hypertension; R10.9 Unspecified abdominal pain
CPT/HCPCS: 36415; 80053; 80061; 81003; 84443

== ENCOUNTER → 2022-07-30 13:08 | Outpatient (BNVA) | payer OTHER, SELFPAY | PROVIDERS: PCP Internal Medicine; Referring Provider Internal Medicine; Visit Provider Internal Medicine Cardiovascular Disease | DX: I20.8 Other forms of angina pectoris (principal); R06.02 Shortness of breath | CPT/HCPCS: 93005; 99212 ==

== ENCOUNTER 2022-08-13 09:12 | Outpatient (REF) | payer OTHER, SELFPAY ==
--- NOTE | ~2022-08-13 | XR_ITS ---
EXAMINATION: XR LUMBOSACRAL SPINE CLINICAL INFORMATION: Low back pain COMPARISON: None TECHNIQUE: Three views of the lumbosacral spine. FINDINGS: There appears to be 5 nonrib-bearing lumbar style vertebral bodies with partial lumbarization of the S1 vertebral body. Lumbar vertebral body heights are maintained. Disc spaces are relatively well-maintained diffusely. Small osteophyte noted off the anterior L5 vertebral body. Sacroiliac joints are symmetric. Vascular calcifications noted. XR/XR lumbar spine 2-3V IMPRESSION: Minimal degenerative changes of the lower lumbar spine. No compression deformity.
== END 2022-08-13 09:13 | disposition home or self-care (01) ==
LOC: HO.XRAY 09:12
PROVIDERS: PCP Internal Medicine; Visit Provider Internal Medicine
DX: M54.50 Low back pain, unspecified (principal)
CPT/HCPCS: 72100

== ENCOUNTER → 2022-09-04 13:38 | Outpatient (BNVA) | payer OTHER, SELFPAY | PROVIDERS: PCP Internal Medicine; Visit Provider Hospitalist | DX: J45.40 Moderate persistent asthma, uncomplicated (principal); J31.0 Chronic rhinitis; R06.02 Shortness of breath | CPT/HCPCS: 99202 ==

== ENCOUNTER 2022-09-29 09:47 | Outpatient (REF) | payer OTHER, SELFPAY ==
--- NOTE | ~2022-09-29 | XR_ITS ---
EXAMINATION: XR CHEST CLINICAL INFORMATION: Shortness of breath COMPARISON: None TECHNIQUE: 2 views of the chest were obtained. FINDINGS: No significant abnormality is noted involving the heart, lungs, mediastinum, bony thorax or soft tissues. XR/XR chest 2V IMPRESSION: Unremarkable chest examination.
[2022-09-29 10:02] LABS: MANUAL DIFF FLAG NO
[2022-09-29 10:42] LABS: Basophils Percent Auto 0.6 % (0-2); Eosinophils Absolute Auto 0.1 X10*3/uL (0.0-0.4); Eosinophils Percent Auto 2.1 % (0-4); Hematocrit 44.3 % (42.0-52.0); Hemoglobin 14.9 g/dl (14.0-18.0); Imm Gran Abs Auto 0.01 X10*3/uL (0.00-0.03); Imm Gran Pct Auto 0.2 % (0.0-0.4); Lymphocytes Absolute Auto 2.5 X10*3/uL (1.2-4.9); Lymphocytes Percent Auto 47.5 % (20-40); Mean Corpuscular HGB Conc 33.6 g/dl (31.0-36.0); Mean Corpuscular Hemoglobin 30.5 pg (27.0-33.0); Mean Corpuscular Volume 90.8 fL (80.0-98.0); Mean Platelet Volume 10.6 fL (9.4-12.4); Monocytes Absolute Auto 0.4 X10*3/uL (0.1-1.2); Monocytes Percent Auto 7.5 % (2-11); Neutrophils Absolute Auto 2.2 x10*3/uL (2.0-8.3); Neutrophils Percent Auto 42.1 % (45-73); Platelet Count 393 X10*3/uL (160-400); Red Blood Count 4.88 X10*6/uL (4.60-5.80); Red Cell Distribution Width 13.5 % (11.0-16.0); White Blood Count 5.3 X10*3/uL (4.8-10.8)
[2022-09-29 11:07] LABS: Alanine Aminotransferase 26 U/L (0-40); Albumin Level 4.3 g/dL (3.5-5.0); Alkaline Phosphatase 97 U/L (39-117); Anion Gap 11 (12-20); Aspartate Amino Transferase 22 U/L (5-37); Bilirubin Total 1.2 mg/dL (0.0-1.0); Blood Urea Nitrogen 10 mg/dL (9-16); Calcium 9.9 mg/dL (8.4-10.2); Carbon Dioxide 33 mmol/L (22-29); Chloride 105 mmol/L (96-108); Cholesterol 252 mg/dL; Estimated Glomerular Filt Rate > 60; Glucose Fasting 99 mg/dL (60-99); Glucose Random 99 mg/dL (60-115); HDL Cholesterol 59 mg/dL; LDL Cholesterol Calculated 159 mg/dl; Potassium 4.2 mmol/L (3.3-5.1); Sodium 145 mmol/L (135-145); Total Protein 7.3 g/dL (6.5-8.0); Triglycerides 170 mg/dL
[2022-09-29 11:34] LABS: Erythrocyte Sedimentation Rate 12 MM/HR (0-15)
[2022-09-30 06:23] LABS: Immunoglobulin E 210 kU/L (<OR=114)
== END 2022-09-29 09:48 | disposition home or self-care (01) ==
LOC: HO.LAB 09:47
PROVIDERS: Hospitalist; PCP Internal Medicine; Visit Provider Internal Medicine
DX: R06.02 Shortness of breath (principal); J45.909 Unspecified asthma, uncomplicated; E78.00 Pure hypercholesterolemia, unspecified
CPT/HCPCS: 36415; 71046; 80048; 80053; 80061; 82785; 85025; 85652

== ENCOUNTER → 2022-10-06 10:51 | Outpatient (BNVA) | payer OTHER, SELFPAY ==
[2022-10-02 13:00] VITALS: BP 128/72; BP 142/80; BMI 24.8
== END ==
PROVIDERS: PCP Internal Medicine; Visit Provider Nurse Practitioner Family
DX: G47.33 Obstructive sleep apnea (adult) (pediatric) (principal); G47.62 Sleep related leg cramps; M54.50 Low back pain, unspecified; Z99.89 Dependence on other enabling machines and devices
CPT/HCPCS: 99212

== ENCOUNTER → 2022-10-14 13:51 | Outpatient (BNVA) | payer OTHER, SELFPAY ==
[2022-10-02 13:00] VITALS: BP 128/72; BP 142/80; BMI 24.8
== END ==
PROVIDERS: PCP Internal Medicine; Visit Provider Hospitalist
DX: J31.0 Chronic rhinitis (principal); J45.40 Moderate persistent asthma, uncomplicated; R06.02 Shortness of breath; R05.3 Chronic cough; G47.33 Obstructive sleep apnea (adult) (pediatric)
CPT/HCPCS: 99212

== ENCOUNTER → 2023-02-13 08:55 | Outpatient (BNVA) | payer OTHER, SELFPAY ==
[2022-10-02 13:00] VITALS: BP 128/72; BP 142/80
[2022-12-25 09:16] VITALS: BMI 25.4
[2023-02-13 08:55] VITALS: BP 144/74
== END ==
PROVIDERS: PCP Internal Medicine; Referring Provider Internal Medicine; Visit Provider Internal Medicine Cardiovascular Disease
DX: R06.02 Shortness of breath (principal); I10 Essential (primary) hypertension
CPT/HCPCS: 99212

== ENCOUNTER 2023-03-11 06:26 | Outpatient (REF) | payer OTHER, SELFPAY ==
[2023-02-13 09:18] VITALS: BP 128/72; BP 142/80; BP 144/74; BMI 25.4
[2023-03-11 07:07] LABS: Basophils Percent Auto 0.6 % (0-2); Eosinophils Absolute Auto 0.2 X10*3/uL (0.0-0.4); Eosinophils Percent Auto 3.8 % (0-4); Hematocrit 42.2 % (42.0-52.0); Hemoglobin 14.2 g/dl (14.0-18.0); Lymphocytes Percent Auto 64.2 % (20-40); MANUAL DIFF FLAG SCAN; Mean Corpuscular HGB Conc 33.6 g/dl (31.0-36.0); Mean Corpuscular Hemoglobin 30.3 pg (27.0-33.0); Mean Corpuscular Volume 90.2 fL (80.0-98.0); Mean Platelet Volume 10.4 fL (9.4-12.4); Monocytes Absolute Auto 0.4 X10*3/uL (0.1-1.2); Monocytes Percent Auto 8.7 % (2-11); Neutrophils Absolute Auto 1.1 x10*3/uL (2.0-8.3); Neutrophils Percent Auto 22.7 % (45-73); Platelet Count 288 X10*3/uL (160-400); Red Blood Count 4.68 X10*6/uL (4.60-5.80); Red Cell Distribution Width 13.4 % (11.0-16.0); SCAN SMEAR FLAG 1; White Blood Count 4.7 X10*3/uL (4.8-10.8)
[2023-03-11 08:03] LABS: Alanine Aminotransferase 27 U/L (0-40); Albumin Level 3.9 g/dL (3.5-5.0); Alkaline Phosphatase 89 U/L (39-117); Anion Gap 11 (12-20); Aspartate Amino Transferase 18 U/L (5-37); Bilirubin Total 0.7 mg/dL (0.0-1.0); Blood Urea Nitrogen 13 mg/dL (9-16); Calcium 9.6 mg/dL (8.4-10.2); Carbon Dioxide 29 mmol/L (22-29); Chloride 108 mmol/L (96-108); Cholesterol 245 mg/dL; Estimated Glomerular Filt Rate > 60; Glucose Fasting 103 mg/dL (60-99); HDL Cholesterol 56 mg/dL; LDL Cholesterol Calculated 167 mg/dl; Potassium 3.8 mmol/L (3.3-5.1); Sodium 144 mmol/L (135-145); Total Protein 6.6 g/dL (6.5-8.0); Triglycerides 113 mg/dL
[2023-03-11 08:03] LABS: Appearance Urine Clear; Color Urine Yellow; Glucose Urine UA 100 mg/dL (Negative); Leukocyte Esterase Urine Negative (Negative); Nitrite Urine Negative (Negative); PH 5.5 (5.0-9.0); Urine Blood Negative (Negative); Urine Ketones Negative (Negative); Urine Protein Negative (Neg-Trace)
[2023-03-11 08:14] LABS: SLIDE REVIEW VERIFIED
[2023-03-11 08:18] LABS: TSH reflex Free T4 1.11 uIU/mL (0.32-4.0); Vitamin D 25-OH Total 13.7 ng/mL (>30)
== END 2023-03-11 06:27 | disposition home or self-care (01) ==
LOC: HO.LAB 06:26
PROVIDERS: PCP Internal Medicine; Visit Provider Internal Medicine
DX: E78.00 Pure hypercholesterolemia, unspecified (principal); E55.9 Vitamin D deficiency, unspecified; I10 Essential (primary) hypertension; R30.0 Dysuria
CPT/HCPCS: 36415; 80053; 80061; 81003; 82306; 84443; 85025

== ENCOUNTER 2023-06-10 09:43 | Outpatient (AMB) | payer OTHER, SELFPAY ==
[2023-02-13 09:18] VITALS: BP 128/72; BP 142/80; BP 144/74; BMI 25.4
--- NOTE | 2023-06-10 09:51 | MHC.OFFVIS ---
Intake Vital Signs 06/10/23 09:53 Height 5 ft 9 in Weight 160 lb BMI 23.6 Pulse 67 Pulse Source Pulse Oximeter Pulse Oximetry (%) 98 Oxygen Delivery Method Room Air Intake Visit Reasons: asthma Real Time Operator Required: No Allergies No Known Allergies Allergy (Verified 06/10/23 09:54) HPI HPI Comments History of Present Illness Details The patient is a 57-year-old gentleman presenting with chronic cough. Cough is moderate severity. Typically nonproductive in nature. It occurs in the dependent of the time were position. Denies any significant a reflux disease. Denies any heartburns. Does have nasal congestion and does have a component of allergies. The patient also has been noticing some increasing shortness of breath primarily with activity. Mild in severity. During the office visit we did go for brief walking oximetry. The patient did get winded after going up a couple stairs. However, his oxygen was reassuring and his heart rate also was slightly elevated in the low 100s. Once the patient's that down her recover. There may be a component of deconditioning as well. Patient is aware of this. In the meantime he also underwent pulmonary function studies which we personally reviewed. His lung capacity is excellent. 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 the patient does does report some intermittent chest tightness and shortness of breath. He may have a component of exercise-induced asthma. Would be reasonable to treat him. Patient also will have allergy testing to address the question of his chronic rhinitis also contributing to his symptoms. 10/14/2022 the patient is here for pulmonary follow-up visit. He continues to be about the same. Still complaining about shortness of breath [id number] severity. Still having episodes of coughing. He could not get the Advair because it was too expensive. The patient does to continue to use his rescue inhaler a couple times a week. Therefore, I will go ahead and try a different combination inhaler, Symbicort. If this continues to be expensive for him then he can consider using a good Rx card in getting a combination inhaler which would be potentially significantly less. In the meantime he continues uses CPAP. although, he has not been able to get supplies from his current DME company. He did call his insurance company and they recommended that he seek out a different DME company, [employer]. I will send a prescription to [employer] for CPAP supplies. However, if there are any ongoing issues with his current DME company he is on likely to get CPAP supplies from the new company. 06/10/2023 the patient is here for a pulmonary follow-up visit. The patient recently developed a cold and had worsening respiratory symptoms. Complaint of wheezing and chest tightness. Unfortunately, he has not been able to afford any inhalers. The last 1 we sent the still expensive therefore he does not have any medications right now. The patient does not have a nebulizer either. I do have a free trial for an inhaler which I will provide him in order for him to get a month supply and hopefully be able to use it and improve his overall respiratory status. The patient should also have a rescue inhaler available. Also, the patient has not been using his CPAP. Unfortunately he also bill and he can not get supplies until he takes care that Bill through his DME company very he is sleeping on his side maintaining positional therapy. Denies any significant daytime drowsiness. His Centuria score is 7/24. Therefore he will continue with positional therapy and will start the new inhaler. [facility] Medical History Abdominal pain Anorexia Asthma Benign essential hypertension Cardiac murmur Cervical disc disease Chronic cough Chronic rhinitis Coronary artery disease COVID-19 vaccine series completed Diarrhea Encounter for screening for malignant neoplasm of prostate Left ankle pain Left foot pain Lumbar degenerative disc disease Nausea Obstructive sleep apnea Overweight (BMI 25.0-29.9) Pure hypercholesterolemia Seborrheic dermatitis of scalp Vitamin D deficiency Surgical History History of cardiac cath History of esophagogastroduodenoscopy (EGD) History of fusion of cervical spine History of heart artery stent Hx of colonoscopy S/P rotator cuff surgery Family History Father Hypertension Mother Hypertension Social History (Updated 06/10/23 @ 09:56 by JOSE C De Jesus) Housing: House Alcohol intake: current Alcohol intake frequency: a few times a week Alcohol type: beer Patient Tobacco Use Status: Never used Tobacco e-Cigarette/Vaping Use: Never Used Second Hand Smoke Exposure: Yes Substance Use Type: Marijuana service: Yes ([employer]) Current occupational status: disabled Cognitive needs: No Hearing needs: No Vision needs: Yes Review of Systems Const Denies daytime sleepiness and Denies fever(s) Eyes Denies change in vision ENT Denies change in voice, Reports nasal congestion, Reports nasal discharge and Reports post nasal drip Card Denies chest pain and Reports dyspnea on exertion Resp Denies chest congestion, Reports cough, Reports dyspnea on exertion and Reports wheezing GI Denies dyspepsia and Denies heartburn Musc Reports no additional complaints Skin/Breast Denies rash Neuro Reports no additional complaints Endo Denies heat intolerance Krunal/Lymph Denies easy bleeding Aller/Immun Reports wheezing Physical Exam Vital Signs: Last Vital Signs Pulse 67 06/10/23 09:53 Pulse Ox 98 06/10/23 09:53 Oxygen Delivery Method Room Air 06/10/23 09:53 BMI result Body Mass Index 23.6 Const General: comfortable HEENT Head: Yes atraumatic General nose exam: Abnormal mucous membranes and turbinates present erythematous Eyes General: appearance normal, both eyes and all related structures Neck Neck: Yes supple Chest Chest palpation & inspection: normal inspection of the chest Resp Effort & Inspection: normal respiratory effort and prolonged expiratory phase Auscultation: wheezes and diminished lung sounds Cardio Rate: regular rate Rhythm: regular rhythm Heart sounds: S1 normal heart sound present and S2 normal heart sound present Skin General skin exam: no rashes or lesions noted Extrem General: Yes no clubbing, cyanosis or edema Assessment & Plan Assessment & Plan (1) Asthma: Code(s): J45.909 - Unspecified asthma, uncomplicated Qualifiers: Asthma complication type: uncomplicated Asthma persistence: persistent Asthma severity: moderate Qualified Code(s): J45.40 - Moderate persistent asthma, uncomplicated (2) SOB (shortness of breath): Code(s): R06.02 - Shortness of breath (3) Chronic rhinitis: Code(s): J31.0 - Chronic rhinitis (4) Chronic cough: Code(s): R05.3 - Chronic cough (5) Obstructive sleep apnea: Code(s): G47.33 - Obstructive sleep apnea (adult) (pediatric) Plan Start Breztri MYKE as needed Requesting CPAP supplies sent to [facility]. Needs to pay bill Continue exercise regimen F/U 8-12 months Medications: New [id number] 160-9-4.8 mcg/actuation (Breztri Aerosphere) 2 inhalations inhalation BID 30 days 10.7 grams 11RF Coding Level of Care Code Est Pt Level 4 (33544) Diagnoses Moderate persistent asthma without complication J45.40 Asthma complication type: uncomplicated Asthma persistence: persistent Asthma severity: moderate SOB (shortness of breath) R06.02 Chronic rhinitis J31.0 Chronic cough R05.3 Obstructive sleep apnea G47.33 Time Spent (min) 16
[2023-06-10 09:53] VITALS: PULSE 67; O2SAT 98; BMI 23.6
== END 2023-06-10 10:09 | disposition home or self-care (01) ==
PROVIDERS: PCP Internal Medicine; Visit Provider Hospitalist
DX: J45.40 Moderate persistent asthma, uncomplicated (principal); R06.02 Shortness of breath; J31.0 Chronic rhinitis; R05.3 Chronic cough; G47.33 Obstructive sleep apnea (adult) (pediatric)
CPT/HCPCS: 99214

== ENCOUNTER → 2023-06-10 09:43 | Outpatient (BNVA) | payer OTHER, SELFPAY ==
[2023-02-13 09:18] VITALS: BP 128/72; BP 142/80; BP 144/74; BMI 25.4
== END ==
PROVIDERS: PCP Internal Medicine; Visit Provider Hospitalist
DX: R05.3 Chronic cough (principal); R06.02 Shortness of breath; J31.0 Chronic rhinitis; J45.40 Moderate persistent asthma, uncomplicated; G47.33 Obstructive sleep apnea (adult) (pediatric)
CPT/HCPCS: 99212

== ENCOUNTER 2023-07-08 09:20 | Emergency (ER) | payer OTHER, SELFPAY ==
[2023-02-13 09:18] VITALS: BP 128/72; BP 142/80; BP 144/74; BMI 25.4
[2023-07-08 10:22] VITALS: BP 180/73; PULSE 65; RESP 17; TEMP 36.8; O2SAT 99; BMI 24.8
== END 2023-07-08 12:35 | disposition left against medical advice (07) ==
PROVIDERS: Emergency Provider Emergency Medicine; PCP Internal Medicine
DX: S61.012A Laceration without foreign body of left thumb without damage to nail, initial encounter (principal); W31.2XXA Contact with powered woodworking and forming machines, initial encounter; Y93.9 Activity, unspecified; Y92.9 Unspecified place or not applicable; Y99.9 Unspecified external cause status
CPT/HCPCS: 99281

== ENCOUNTER 2023-07-09 11:26 | Outpatient (AMB) | payer OTHER, SELFPAY ==
[2023-02-13 09:18] VITALS: BP 128/72; BP 142/80; BP 144/74; BMI 25.4
[2023-07-09 11:31] VITALS: BP 110/70; PULSE 66; O2SAT 97; BMI 24.4
--- NOTE | 2023-07-09 11:31 | A.OFFPC_ITS ---
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 Accompanied by: Self / Same As Patient Allergies No Known Allergies Allergy (Verified 07/09/23 11:55) Medication List - Last Reconciled 07/09/23 by Gage Cha MD aspirin 81 mg PO DAILY atorvastatin 80 mg PO DAILY 90 days [id number]-[id number]-eqrdynjvns 160-9-4.8 mcg/actuation (Breztri Aerosphere) 2 inhalations inhalation BID 30 days gabapentin 300 mg PO BEDTIME PRN hydrochlorothiazide 25 mg PO DAILY 90 days hydrocortisone 2.5% topical hydroxyzine HCl 25 mg PO DAILY PRN ketoconazole 2% 1 appl topical ketoconazole 2% topical losartan 50 mg PO DAILY triamcinolone acetonide 0.1% 1 appl topical BID Tobacco use date assessed: 07/09/23 Dental Screening Dental Screen Date: 07/09/23 Did you have a dental visit in the last 12 months?: No Did you have a dental problem in the last 6 months where you did not have access to dental care?: No Was dental information given to patient?: Patient has dentist HPI hyperlipidemia, asthma, HTN HPI Details Patient comes in today for his follow up visit States that he accidentally cut his left thumb with a wood saw a couple of days ago States that his daughter has been helping him clean up and dress his wound for the past couple of days; is wondering if his wound needs to be stitched up Patient also does not recall when was the last time he had his tetanus shot - thinks it is over 10 years ago now that he last had it States that he feels okay otherwise He denies any headaches or dizziness Denies any chest pains, no SOB No nausea/vomiting, no abdominal pain No change in bowel habits noted Was not able to get his follow up labs done prior to his visit today - states that he can get them done tomorrow morning Saw podiatry a couple of months ago and received some cortisone injection into his right big toe - states that the cortisone injection helped for a while Was also started on Breztri Aerosphere by pulmonary a couple of weeks ago to help with his breathing [facility] Medical History Chronic cough Chronic rhinitis Asthma Vitamin D deficiency Encounter for screening for malignant neoplasm of prostate COVID-19 vaccine series completed Left ankle pain Left foot pain Coronary artery disease Overweight (BMI 25.0-29.9) Seborrheic dermatitis of scalp Cervical disc disease Cardiac murmur Lumbar degenerative disc disease Pure hypercholesterolemia Benign essential hypertension Obstructive sleep apnea Diarrhea Anorexia Nausea Abdominal pain Surgical History History of cardiac cath Hx of colonoscopy History of esophagogastroduodenoscopy (EGD) History of heart artery stent History of fusion of cervical spine S/P rotator cuff surgery Family History Father Hypertension Mother Hypertension Social History Housing: House Alcohol intake: current Alcohol intake frequency: a few times a week Alcohol type: beer Patient Tobacco Use Status: Never used Tobacco e-Cigarette/Vaping Use: Never Used Second Hand Smoke Exposure: Yes Substance Use Type: Marijuana service: Yes ([employer]) Current occupational status: disabled Cognitive needs: No Hearing needs: No Vision needs: Yes Questionnaire PHQ-9 Over the last 2 weeks, how often have you been bothered by any of the following problems? 1. Little interest or pleasure in doing things: not at all 2. Feeling down, depressed, or hopeless: not at all 3. Trouble falling or staying asleep, or sleeping too much: not at all 4. Feeling tired or having little energy: not at all 5. Poor appetite or overeating: not at all 6. Feeling bad about yourself - or that you are a failure or have let yourself or your family down: not at all 7. Trouble concentrating on things, such as reading the newspaper or watching television: not at all 8. Moving or speaking so slowly that other people could have noticed. Or the opposite - being so fidgety or restless that you have been moving around a lot more than usual: not at all 9. Thoughts that you would be better off or of hurting yourself in some way: not at all Total score: 0 Depression Screening Interpretation: Negative Depression Screening Done: Yes [id number] - PHQ-9 Billing: Yes Source: Developed by Drs. Brody Pat, Brenda Sutton, Patrice Osorio and colleagues, with an educational nayana from [employer]. Thrive Questionnaire Date Thrive assessed: 07/09/23 I am a: Patient What is your living situation today?: I have a steady place to live Within the past 12 months, did the food you bought not last and you didn't have the money to get more?: Never true Within the past 12 months, did you worry whether your food would run out before you got money to buy more?: Never true Do you have trouble paying for medicines?: No Do you have trouble getting transportation to medical appointments?: No Do you have trouble paying your heating and electricity bill?: No Do you have trouble taking care of your child, family member or friend?: No Do you have trouble with day-to-day activities such as bathing, preparing meals, shopping, managing finances, etc.?: No Are you currently unemployed and looking for a job?: No Are you interested in more education?: No Please select the resources that you would like help with: None Currently or been in a relationship where the following occur: no concerns reported AUDIT C Alcohol Use Questionnaire (AUDIT-C) 1. How often do you have a drink containing alcohol?: 2-3 times a week 2. How many drinks containing alcohol do you have on a typical day when you are drinking?: 1 or 2 3. How often do you have six or more drinks on one occasion?: Never Total Score: 3 Score Reviewed/Action Taken: Yes LAWRENCE-7 AMB Questionnaire LAWRENCE-7 Date LAWRENCE - 7 assessed: 07/09/23 Feeling nervous, anxious, or on edge: 0 = Not at all Not being able to stop or control worryin = Not at all Worrying too much about different things: 0 = Not at all Trouble relaxin = Not at all Being so restless that it is hard to sit still: 0 = Not at all Becoming easily annoyed or irritable: 0 = Not at all Feeling afraid as if something awful might happen: 0 = Not at all Total LAWRENCE-7 score (0-4 normal; 5-9 mild; 10-14 moderate; 15-21 severe): 0 Source: Developed by Drs. Brody Pat, Brenda Sutton, Patrice Osorio and colleagues, with an educational nayana from [employer]. Review of Systems Const Denies fatigue, Denies fever(s) and Denies headache(s) ENT Denies dysphagia, Denies dizziness, Denies headache(s), Denies neck pain, Denies odynophagia and Denies sore throat Card Denies chest pain, Denies rapid heart rate, Denies irregular heart rhythm, [place] es palpitations and Reports dyspnea on exertion (at times, mild) Resp Denies chest congestion (but chest feels tight often), Reports cough (on and off, non-productive), Reports dyspnea on exertion (at times, mild) and Denies wheezing GI Denies abdominal pain, Denies constipation, Denies dysphagia, Denies heartburn, Denies diarrhea, Denies nausea, Denies odynophagia and Denies vomiting Denies difficulty urinating, Denies dysuria and Denies urinary frequency Musc Reports back pain (on and off over the lower back), Reports arthralgias (base of left big toe ), Reports joint swelling (base of left big toe, at times) and Denies neck pain Skin/Breast Details: (+) open wound on the left thumb Denies rash Neuro Denies dizziness, Denies headache(s), Reports memory loss (more of poor memory recall) and Denies paresthesias Psych Reports memory loss (more of poor memory recall) Endo Denies fatigue and Denies palpitations Aller/Immun Denies wheezing Physical exam (Primary Care) Vital Signs: Last Vital Signs Pulse 66 07/09/23 11:31 BP 110/70 07/09/23 11:31 Pulse Ox 97 07/09/23 11:31 Oxygen Delivery Method Room Air 07/09/23 11:31 BMI result Body Mass Index 24.4 Tobacco/Smoking Status: Tobacco use Status Tobacco use date assessed 07/09/23 07/09/23 11:35 Patient Tobacco Use Status Never used Tobacco 07/09/23 11:35 e-Cigarette/Vaping Use Never Used 07/09/23 11:35 PHQ-9: PHQ-9 Score PHQ-9: Total score 0 07/09/23 12:13 Depression Screening Interpretation: Negative Thrive Assessment: Date of Thrive Assessment Date Thrive assessed 07/09/23 07/09/23 11:35 Currently or been in a relationship where the following occur: no concerns reported Const General: no acute distress and alert HENMT Ears: TM's normal bilaterally and EAC's normal Throat: Yes posterior oropharynx normal and Yes tonsils normal (no TP congestion) Neck Neck: Yes no lymphadenopathy and Yes supple Thyroid: Thyroid normal Resp Auscultation: clear to auscultation bilaterally, no rales and no wheezes Cardio Rate: regular rate Rhythm: regular rhythm Heart sounds: no murmurs GI Palpation (GI): Soft to palpation and nontender Auscultation: normal bowel sounds Back/Spine/Pelvis Thoracic/Lumbar Spine: lumbar spinal tenderness Skin Other: (+) open wound on the palmar aspect of the distal phalanx of the left thumb; no drainage noted from the wound Rashes: no rashes Extrem General: Yes no clubbing, cyanosis or edema Left lower extremity: foot Details: tenderness Location: of the great toe Location: at the MTP joint Immunizations Boostrix Tdap 2.5 Lf unit-8 mcg-5 Lf/0.5 mL intramuscular syringe Performing Provider: Gage Cha MD Performing Location: [facility] Administered by: Danny Iglesias on 07/09/23 12:06 Dose Route Admin Location Dispensed Lot Number Expiration Date NDC Batch Unit Treater 0.5 mL IM Left Deltoid 0.5 mL [id number] 10/02/25 [id number] [place] VIS Given Date VIS Provided VIS Publication Date 07/09/23 Single Vaccine 21 Eligibility Eligibility Date Funding Source Not [facility] Eligible 07/09/23 Private Assessment and Plan Assessment & Plan (1) Coronary artery disease: Code(s): I25.10 - Atherosclerotic heart disease of [place] coronary artery without angina pectoris Qualifiers: Associated angina: without angina Coronary Disease-Associated Artery/Lesion type: [place] artery [place] vs. transplanted heart: [place] heart Qualified Code(s): I25.10 - Atherosclerotic heart disease of [place] coronary artery without angina pectoris Plan: Cardiac work ups done so far have been negative, including an extended Holter monitor that showed baseline rhythm of sinus; stress testing in mid 2021 came out mostly normal except for mild to moderate intensity inferolateral and lateral ischemia in the circumflex territory Continue Aspirin 81 mg QD Repeat EKG done in the offfice back in September 2022 revealed (+) sinus rhythm, with marked LAD, LAFB with no acute ST-T wave changes noted Follow up with cardiology as scheduled (2) Pure hypercholesterolemia: Code(s): E78.00 - Pure hypercholesterolemia, unspecified Plan: Was not able to get his follow up labs done yet - is advised to get these done [place] His LDL cholesterol was elevated at 167 mg/dl and total cholesterol was at 245 mg/dl when last checked in March 2023 Reinforced low cholesterol diet Continue Atorvastatin 80 mg QD and Fenofibrate 145 mg QD for now Will recheck his labs and fasting lipids in 4 months for follow up (3) Benign essential hypertension: Code(s): I10 - Essential (primary) hypertension Plan: Reinforced low sodium diet - goal is systolic BP of 120 mm or less Continue Losartan 50 mg QD and HCTZ 25 mg QD (4) Obstructive sleep apnea: Code(s): G47.33 - Obstructive sleep apnea (adult) (pediatric) Plan: Has been using a CPAP device when he sleeps at night and recalls feeling a lot better since going back on it Follow up with pulmonary and with sleep medicine as scheduled (5) Asthma: Code(s): J45.909 - Unspecified asthma, uncomplicated Qualifiers: Asthma complication type: uncomplicated Asthma persistence: persistent Asthma severity: moderate Qualified Code(s): J45.40 - Moderate persistent asthma, uncomplicated Plan: Was started on Breztri Aerosphere 160-9-4.8 mcg 2 inhalations BID by pulmonary recently - could not afford the co-pay for Symbicort previously Continue Albuterol HFA 2 inhalations Q 6 hours PRN Follow up with pulmonary as scheduled (6) Low back pain: Code(s): M54.50 - Low back pain, unspecified Qualifiers: Back pain laterality: unspecified Chronicity: unspecified Sciatica presence: without sciatica Qualified Code(s): M54.50 - Low back pain, unspecified Plan: Reinforced activity and weight-lifting restrictions Lumbar spine x-rays done a few months ago revealed (+) minimal degenerative changes of the lower lumbar spine. No compression deformity noted States that he has been using a back brace that he bought on [employer] when needed and that the brace helps him a lot Continue Gabapentin 300 mg Q HS (7) Memory impairment: Code(s): R41.3 - Other amnesia Plan: Patient scored 24 out of 30 on a MOCA test done here in the office a few months ago - is again reassured that a score of 21 or more is considered acceptable and that his recent memory issues appear to be more of short-term memory recall; his cognition and mental capacity are otherwise grossly normal (8) Injury of left thumb: Code(s): S69.92XA - Unspecified injury of left wrist, hand and finger(s), initial encounter Qualifiers: Encounter type: initial encounter Qualified Code(s): S69.92XA - Unspecified injury of left wrist, hand and finger(s), initial encounter Plan: Patient accidentally sustained a laceration injury across the width of his left thumb on the palmar aspect from a wood saw a couple of days ago (07/07/2023) The wound is currently still open but there are no drainage from the wound and it does not appear to be infected - states that his daughter has been helping her clean and dress the wound Advised that as his wound is more than 2 days old, we can no longer close it up by suturing Patient is also not clear as to when he last had his tetanus immunization - thinks it is over 10 years ago; will go ahead and give him Tdap immunization today Have instructed patient to have his daughter continue to help him clean and dress his wound regularly; have also cleaned and dressed it for him while he is here in the office today Advised patient to call at any time if he feels that the wound is not healing as it should or if there are any symptoms that it is getting infected Plan Follow up in 4 months Orders: Orders Comprehensive [place]. Panel Fast 4 Months E78.00 - Pure hypercholesterolemia, unspecified Lipid Panel 4 Months E78.00 - Pure hypercholesterolemia, unspecified TDaP Immunization Today Z23 - Encounter for immunization Coding Level of Care Code Est Pt Level 4 (93680) Diagnoses Coronary artery disease involving [place] coronary artery of [place] heart without angina pectoris I25.10 Associated angina: without angina Coronary Disease-Associated Artery/Lesion type: [place] artery [place] vs. transplanted heart: [place] heart Pure hypercholesterolemia E78.00 Benign essential hypertension I10 Obstructive sleep apnea G47.33 Moderate persistent asthma without complication J45.40 Asthma complication type: uncomplicated Asthma persistence: persistent Asthma severity: moderate Low back pain without sciatica, unspecified back pain laterality, unspecified chronicity M54.50 Back pain laterality: unspecified Chronicity: unspecified Sciatica presence: without sciatica Memory impairment R41.3 Injury of left thumb, initial encounter S69.92XA Encounter type: initial encounter
== END 2023-07-09 12:18 | disposition home or self-care (01) ==
PROVIDERS: PCP Internal Medicine; Visit Provider Internal Medicine
DX: I25.10 Atherosclerotic heart disease of native coronary artery without angina pectoris (principal); E78.00 Pure hypercholesterolemia, unspecified; I10 Essential (primary) hypertension; G47.33 Obstructive sleep apnea (adult) (pediatric); J45.40 Moderate persistent asthma, uncomplicated; M54.50 Low back pain, unspecified; R41.3 Other amnesia; S69.92XA Unspecified injury of left wrist, hand and finger(s), initial encounter; Z23 Encounter for immunization
CPT/HCPCS: 90471; 90715; 99214

== ENCOUNTER 2023-07-10 06:23 | Outpatient (REF) | payer OTHER, SELFPAY ==
[2023-02-13 09:18] VITALS: BP 128/72; BP 142/80; BP 144/74; BMI 25.4
[2023-07-10 07:54] LABS: Alanine Aminotransferase 25 U/L (0-40); Alkaline Phosphatase 88 U/L (39-117); Anion Gap 12 (12-20); Aspartate Amino Transferase 19 U/L (5-37); Bilirubin Total 0.4 mg/dL (0.0-1.0); Blood Urea Nitrogen 17 mg/dL (9-16); Calcium 9.8 mg/dL (8.4-10.2); Carbon Dioxide 27 mmol/L (22-29); Chloride 108 mmol/L (96-108); Cholesterol 186 mg/dL (<200); Estimated Glomerular Filt Rate > 60; Glucose Fasting 105 mg/dL (60-99); HDL Cholesterol 57 mg/dL (>40); LDL Cholesterol Calculated 114 mg/dL (<100); Potassium 4.6 mmol/L (3.3-5.1); Sodium 142 mmol/L (135-145); Total Protein 7.1 g/dL (6.5-8.0); Triglycerides 79 mg/dL (<150)
== END 2023-07-10 06:24 | disposition home or self-care (01) ==
LOC: HO.LAB 06:23
PROVIDERS: PCP Internal Medicine; Visit Provider Internal Medicine
DX: E78.00 Pure hypercholesterolemia, unspecified (principal)
CPT/HCPCS: 36415; 80053; 80061

== ENCOUNTER 2023-07-13 09:34 | Outpatient (AMB) | payer OTHER, SELFPAY ==
[2023-02-13 09:18] VITALS: BP 128/72; BP 142/80; BP 144/74; BMI 25.4
[2023-07-13 12:30] VITALS: BP 142/76; PULSE 61; TEMP 36.7; O2SAT 98; BMI 24.6
--- NOTE | 2023-07-13 12:30 | MHC.OFFWIV ---
Intake Vital Signs 07/13/23 12:30 Height 5 ft 9 in Weight 166 lb 8 oz BMI 24.6 BP 142/76 H Blood Pressure Location Rt brachial Position Sitting Pulse 61 Pulse Source Pulse Oximeter Temp 98.0 F Temp Source Oral Pulse Oximetry (%) 98 Oxygen Delivery Method Room Air Intake Visit Reasons: EP, Left thumb swelliing Intake Note: Pt presents to the office today for c/o left thumb swelling. Pt states he cut his finger with a saw on 07/07/23. Pt states it is now swelling. Pt also got a tetanus shot on 07/10/23. Patient Tobacco Use Status: Never used Tobacco Allergies No Known Allergies Allergy (Verified 07/13/23 12:50) Medication List - Last Reconciled 07/13/23 by Mikael Rivera MD aspirin 81 mg PO DAILY atorvastatin 80 mg PO DAILY 90 days [id number]-pyuuucrn-himhhgoleu 160-9-4.8 mcg/actuation (Breztri Aerosphere) 2 inhalations inhalation BID 30 days gabapentin 300 mg PO BEDTIME PRN hydrochlorothiazide 25 mg PO DAILY 90 days hydrocortisone 2.5% topical hydroxyzine HCl 25 mg PO DAILY PRN ketoconazole 2% 1 appl topical ketoconazole 2% topical losartan 50 mg PO DAILY triamcinolone acetonide 0.1% 1 appl topical BID HPI EP, Left thumb swelliing HPI Details 57-year-old male presents to the office for a sick visit. patient would like to have his thumb examined. He had an injury with a saw last week. In the process a chunk of flash from the left thumb was taken out. Patient had a gaping wound. He would like to have the wound examined. Complaining of slight throbbing pain in the area of the wound. [facility] Medical History Chronic cough Chronic rhinitis Asthma Vitamin D deficiency Encounter for screening for malignant neoplasm of prostate COVID-19 vaccine series completed Left ankle pain Left foot pain Coronary artery disease Overweight (BMI 25.0-29.9) Seborrheic dermatitis of scalp Cervical disc disease Cardiac murmur Lumbar degenerative disc disease Pure hypercholesterolemia Benign essential hypertension Obstructive sleep apnea Diarrhea Anorexia Nausea Abdominal pain Surgical History History of cardiac cath Hx of colonoscopy History of esophagogastroduodenoscopy (EGD) History of heart artery stent History of fusion of cervical spine S/P rotator cuff surgery Family History Father Hypertension Mother Hypertension Social History Housing: House Alcohol intake: current Alcohol intake frequency: a few times a week Alcohol type: beer Patient Tobacco Use Status: Never used Tobacco e-Cigarette/Vaping Use: Never Used Second Hand Smoke Exposure: Yes Substance Use Type: Marijuana service: Yes ([id number]) Current occupational status: disabled Cognitive needs: No Hearing needs: No Vision needs: Yes Physical Exam Vital Signs: Last Vital Signs Temp 98.0 F 07/13/23 12:30 Pulse 61 07/13/23 12:30 BP 142/76 H 07/13/23 12:30 Pulse Ox 98 07/13/23 12:30 Oxygen Delivery Method Room Air 07/13/23 12:30 BMI result Body Mass Index 24.6 Skin Other: Left thumb: Open wound with edematous edges and pleural to pale smith granulation tissue. Slight tenderness along the margins of the wound. Assessment & Plan Assessment & Plan (1) Open wound of thumb: Code(s): S61.009A - Unspecified open wound of unspecified thumb without damage to nail, initial encounter Plan: wound is not amenable to any surgery. Wound appears infected and antibiotics will be called in. Coding Level of Care Code Est Pt Level 3 (93005) Diagnoses Open wound of thumb S61.009A
== END 2023-07-13 12:54 | disposition home or self-care (01) ==
PROVIDERS: PCP Internal Medicine; Visit Provider Internal Medicine
DX: S61.009A Unspecified open wound of unspecified thumb without damage to nail, initial encounter (principal)
CPT/HCPCS: 99213

== ENCOUNTER 2023-11-07 07:38 | Outpatient (REF) | payer MEDICARE, SELFPAY ==
[2023-02-13 09:18] VITALS: BP 128/72; BP 142/80; BP 144/74; BMI 25.4
[2023-11-07 09:34] LABS: Alanine Aminotransferase 18 U/L (0-40); Albumin Level 4.1 g/dL (3.5-5.0); Alkaline Phosphatase 103 U/L (39-117); Anion Gap 12 (12-20); Aspartate Amino Transferase 17 U/L (5-37); Bilirubin Total 0.4 mg/dL (0.0-1.0); Blood Urea Nitrogen 16 mg/dL (9-16); Calcium 9.7 mg/dL (8.4-10.2); Carbon Dioxide 31 mmol/L (22-29); Chloride 106 mmol/L (96-108); Cholesterol 300 mg/dL (<200); Estimated Glomerular Filt Rate > 60; Glucose Fasting 103 mg/dL (60-99); HDL Cholesterol 52 mg/dL (>40); LDL Cholesterol Calculated 219 mg/dL (<100); Sodium 145 mmol/L (135-145); Total Protein 7.2 g/dL (6.5-8.0); Triglycerides 145 mg/dL (<150)
== END 2023-11-07 07:39 | disposition home or self-care (01) ==
LOC: HO.LAB 07:38
PROVIDERS: PCP Internal Medicine; Visit Provider Internal Medicine
DX: E78.00 Pure hypercholesterolemia, unspecified (principal)
CPT/HCPCS: 36415; 80053; 80061

== ENCOUNTER 2023-11-10 10:39 | Outpatient (AMB) | payer MEDICARE, SELFPAY ==
[2023-02-13 09:18] VITALS: BP 128/72; BP 142/80; BP 144/74; BMI 25.4
[2023-11-10 10:51] VITALS: BP 140/78; PULSE 75; O2SAT 100; BMI 24.5
--- NOTE | 2023-11-10 10:51 | MHC.PC.OV ---
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: Not Required per policy Accompanied by: Self / Same As Patient Allergies No Known Allergies Allergy (Verified 02/02/24 10:34) Medication List - Last Reconciled 11/10/23 by Gage Cha MD aspirin 81 mg PO DAILY atorvastatin 80 mg PO DAILY 90 days vivazqrohs-tpbhlnwd-usqbwgavps 160-9-4.8 mcg/actuation (Breztri Aerosphere) 2 inhalations inhalation BID 30 days gabapentin 300 mg PO BEDTIME PRN hydrochlorothiazide 25 mg PO DAILY 90 days hydrocortisone 2.5% topical hydroxyzine HCl 25 mg PO DAILY PRN losartan 50 mg PO DAILY triamcinolone acetonide 0.1% 1 appl topical BID Tobacco use date assessed: 11/10/23 Dental Screening Dental Screen Date: 11/10/23 Did you have a dental visit in the last 12 months?: Yes Did you have a dental problem in the last 6 months where you did not have access to dental care?: No Was dental information given to patient?: Patient has dentist HPI HTN, hyperlipidemia HPI Details Patient comes in today for his follow up visit He is presently complaining of increased pain over his left lower back Also relates (+) sciatica lately, with sharp pains going down the back oh his left lower extremity down to the lower leg and ankle area States that he has tried acupuncture recently but it did not help much He then went to his chiropractor for some treatments but only reported experiencing some temporary relief from his back pain States that physical therapy more recently also provided him with only temporary relief He had lumbar spien x-rays done over a year ago in 07/2022 that showed only (+) mild DDD He has also been experiencing increased right knee pain lately Knee x-rays done back in 11/2021 came out normal; he denies any recent injury or trauma to his right knee He denies any headaches or dizziness Denies any chest pains, no increased SOB No nausea/vomiting, no abdominal pain No change in bowel habits noted Had his follow up labs done a few days ago - to discuss his results FOR[facility]LY [facility], [facility] Medical History Chronic cough Chronic rhinitis Asthma Vitamin D deficiency Encounter for screening for malignant neoplasm of prostate COVID-19 vaccine series completed Left ankle pain Left foot pain Coronary artery disease Overweight (BMI 25.0-29.9) Seborrheic dermatitis of scalp Cervical disc disease Cardiac murmur Lumbar degenerative disc disease Pure hypercholesterolemia Benign essential hypertension Obstructive sleep apnea Diarrhea Anorexia Nausea Abdominal pain Surgical History History of cardiac cath Hx of colonoscopy History of esophagogastroduodenoscopy (EGD) History of heart artery stent History of fusion of cervical spine S/P rotator cuff surgery Family History Father Hypertension Mother Hypertension Social History Housing: House Alcohol intake: current Alcohol intake frequency: a few times a week Alcohol type: beer Patient Tobacco Use Status: Never used Tobacco e-Cigarette/Vaping Use: Never Used Second Hand Smoke Exposure: Yes Substance Use Type: Marijuana service: Yes ([employer]) Current occupational status: disabled 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 1. Little interest or pleasure in doing things: several days 2. Feeling down, depressed, or hopeless: several days 3. Trouble falling or staying asleep, or sleeping too much: more than half the days 4. Feeling tired or having little energy: more than half the days 5. Poor appetite or overeating: more than half the days 6. Feeling bad about yourself - or that you are a failure or have let yourself or your family down: not at all 7. Trouble concentrating on things, such as reading the newspaper or watching television: more than half the days 8. Moving or speaking so slowly that other people could have noticed. Or the opposite - being so fidgety or restless that you have been moving around a lot more than usual: not at all 9. Thoughts that you would be better off or of hurting yourself in some way: not at all Total score: 10 Depression Screening Interpretation: Positive Depression Screening Follow-up: Follow-up Visit Requested Depression Screening Done: Yes 24905 - PHQ-9 Billing: Yes Source: Developed by Drs. Brody Pat, Brenda Sutton, Patrice Osorio and colleagues, with an educational nayana from [employer]. Thrive Questionnaire Date Thrive assessed: 11/10/23 I am a: Patient What is your living situation today?: I have a steady place to live Within the past 12 months, did the food you bought not last and you didn't have the money to get more?: Never true Within the past 12 months, did you worry whether your food would run out before you got money to buy more?: Never true Do you have trouble paying for medicines?: No Do you have trouble getting transportation to medical appointments?: No Do you have trouble paying your heating and electricity bill?: No Do you have trouble taking care of your child, family member or friend?: No Do you have trouble with day-to-day activities such as bathing, preparing meals, shopping, managing finances, etc.?: No Are you currently unemployed and looking for a job?: No Are you interested in more education?: No Please select the resources that you would like help with: None Currently or been in a relationship where the following occur: no concerns reported THRIVE Score: 0 AUDIT C Alcohol Use Questionnaire (AUDIT-C) 1. How often do you have a drink containing alcohol?: 2-3 times a week 2. How many drinks containing alcohol do you have on a typical day when you are drinking?: 1 or 2 3. How often do you have six or more drinks on one occasion?: Never Total Score: 3 Score Reviewed/Action Taken: Yes LAWRENCE-7 AMB Questionnaire LAWRENCE-7 Date LAWRENCE - 7 assessed: 11/10/23 Feeling nervous, anxious, or on edge: 2 = More than half the days Not being able to stop or control worryin = Several days Worrying too much about different things: 0 = Not at all Trouble relaxin = Several days Being so restless that it is hard to sit still: 0 = Not at all Becoming easily annoyed or irritable: 0 = Not at all Feeling afraid as if something awful might happen: 2 = More than half the days Total LAWRENCE-7 score (0-4 normal; 5-9 mild; 10-14 moderate; 15-21 severe): 6 Source: Developed by Drs. Brody Pat, Brenda Sutton, Patrice Osorio and colleagues, with an educational nayana from [employer]. Review of Systems Const Denies fatigue, Denies fever(s) and Denies headache(s) ENT Denies dysphagia, Denies dizziness, Denies headache(s), Denies neck pain, Denies odynophagia and Denies sore throat Card Denies chest pain, Denies rapid heart rate, Denies irregular heart rhythm, Denies palpitations and Reports dyspnea on exertion (at times, mild) Resp Denies chest congestion (but chest feels tight often), Reports cough (on and off, non-productive), Reports dyspnea on exertion (at times, mild) and Denies wheezing GI Denies abdominal pain, Denies constipation, Denies dysphagia, Denies heartburn, Denies diarrhea, Denies nausea, Denies odynophagia and Denies vomiting Denies difficulty urinating, Denies dysuria and Denies urinary frequency Musc Reports back pain (increased over his left lower back lately), Reports arthralgias (increased over the right knee), Denies joint swelling and Denies neck pain Skin/Breast Denies rash Neuro Denies dizziness, Denies headache(s), Reports memory loss (more of poor memory recall) and Denies paresthesias Psych Reports memory loss (more of poor memory recall) Endo Denies fatigue and Denies palpitations Aller/Immun Denies wheezing Physical exam (Primary Care) Vital Signs: Last Vital Signs Pulse 75 11/10/23 10:51 BP 140/78 H 11/10/23 10:51 Pulse Ox 100 11/10/23 10:51 Oxygen Delivery Method Room Air 11/10/23 10:51 BMI result Body Mass Index 24.5 Tobacco/Smoking Status: Tobacco use Status Tobacco use date assessed 11/10/23 11/10/23 10:53 Patient Tobacco Use Status Never used Tobacco 11/10/23 10:53 e-Cigarette/Vaping Use Never Used 11/10/23 10:53 PHQ-9: PHQ-9 Score PHQ-9: Total score 10 11/10/23 11:43 Depression Screening Interpretation: Positive Depression Screening Follow-up: Follow-up Visit Requested Thrive Assessment: Date of Thrive Assessment Date Thrive assessed 11/10/23 11/10/23 10:53 Currently or been in a relationship where the following occur: no concerns reported Const General: no acute distress and alert HENMT Ears: TM's normal bilaterally and EAC's normal Throat: Yes posterior oropharynx normal and Yes tonsils normal (no TP congestion) Neck Neck: Yes no lymphadenopathy and Yes supple Thyroid: Thyroid normal Resp Auscultation: clear to auscultation bilaterally, no rales and no wheezes Cardio Rate: regular rate Rhythm: regular rhythm Heart sounds: no murmurs GI Palpation (GI): Soft to palpation and nontender Auscultation: normal bowel sounds Back/Spine/Pelvis Thoracic/Lumbar Spine: paraspinal muscle tenderness on the left in the mid lumbar and in the lower lumbar, lumbar spinal tenderness and straight leg raise positive left Skin Rashes: no rashes Extrem General: Yes no clubbing, cyanosis or edema Right lower extremity: knee Details: tenderness Location: of the pre-patellar area; no swelling Left lower extremity: foot Details: tenderness Location: of the great toe Location: at the MTP joint Results Reviewed Results Reviewed: Laboratory Tests 07/10/23 11/07/23 11/07/23 06:38 07:44 07:44 Sodium 145 Potassium 4.0 Creatinine 1.12 Estimated GFR > 60 Fasting Glucose 103 H Calcium 9.7 AST 17 ALT 18 Triglycerides 145 Cholesterol 186 300 H LDL Cholesterol, Calc 114 H 219 H HDL Cholesterol 52 Assessment and Plan Assessment & Plan (1) Coronary artery disease: Code(s): I25.10 - Atherosclerotic heart disease of [place] coronary artery without angina pectoris Qualifiers: Coronary Disease-Associated Artery/Lesion type: [place] artery [place] vs. transplanted heart: [place] heart Associated angina: without angina Qualified Code(s): I25.10 - Atherosclerotic heart disease of [place] coronary artery without angina pectoris Plan: Cardiac work ups done so far have been negative, including an extended Holter monitor that showed baseline rhythm of sinus; stress testing in mid 2020 came out mostly normal except for mild to moderate intensity inferolateral and lateral ischemia in the circumflex territory Continue Aspirin 81 mg QD Repeat EKG done in the offce back in September 2022 revealed (+) sinus rhythm, with marked LAD, LAFB with no acute ST-T wave changes noted Follow up with cardiology as scheduled (2) Pure hypercholesterolemia: Code(s): E78.00 - Pure hypercholesterolemia, unspecified Plan: Results of his labs done a few days ago reviewed and discussed with patient He is cautioned that his cholesterol levels have increased significantly from previous Reinforced low cholesterol diet Continue Atorvastatin 80 mg QD; he was also supposed to be on Fenofibrate 145 mg QD but it looks like he stopped taking this a while ago (not sure why) Will start him additionally on Ezetimibe 10 mg QD Will recheck his labs and fasting lipids in 4 months for follow up (3) Benign essential hypertension: Code(s): I10 - Essential (primary) hypertension Plan: Reinforced low sodium diet - goal is systolic BP of 120 mm or less Continue Losartan 50 mg QD and HCTZ 25 mg QD (4) Obstructive sleep apnea: Code(s): G47.33 - Obstructive sleep apnea (adult) (pediatric) Plan: He has been using a CPAP device when he sleeps at night and recalls feeling a lot better since going back on it Follow up with pulmonary and with sleep medicine as scheduled (5) Asthma: Code(s): J45.909 - Unspecified asthma, uncomplicated Qualifiers: Asthma severity: moderate Asthma persistence: persistent Asthma complication type: uncomplicated Qualified Code(s): J45.40 - Moderate persistent asthma, uncomplicated Plan: He was started on Breztri Aerosphere 160-9-4.8 mcg 2 inhalations BID by pulmonary as he could not afford the co-pay for Symbicort previously Continue Albuterol HFA 2 inhalations Q 6 hours PRN Follow up with pulmonary as scheduled (6) Low back pain: Code(s): M54.50 - Low back pain, unspecified Qualifiers: Chronicity: unspecified Back pain laterality: unspecified Sciatica presence: without sciatica Qualified Code(s): M54.50 - Low back pain, unspecified Plan: Reinforced activity and weight-lifting restrictions Lumbar spine x-rays done a few months ago revealed (+) minimal degenerative changes of the lower lumbar spine. No compression deformity noted States that he has been using a back brace that he bought on [employer] when needed - felt that the brace was helping before but not recently Continue Gabapentin 300 mg Q HS As he is now experiencing increased pain over his lower back with left-sided radicular symptoms, will try sending him for an MRI of the lumbar spine [place] for further evaluation (7) Right knee pain: Code(s): M25.561 - Pain in right knee Qualifiers: Chronicity: unspecified Qualified Code(s): M25.561 - Pain in right knee Plan: Right knee x-rays done about a year ago came out normal Will refer him to orthopedics for further evaluation and management (8) Memory impairment: Code(s): R41.3 - Other amnesia Plan: Patient scored 24 out of 30 on a MOCA test done here in the office a few months ago - is again reassured that a score of 21 or more is considered acceptable and that his recent memory issues appear to be more of short-term memory recall; his cognition and mental capacity are otherwise grossly normal Plan Follow up in 4 months Orders: Orders Lipid Panel 4 Months E78.00 - Pure hypercholesterolemia, unspecified MR lumbar spine wo con 11/10/23 M54.16 - Radiculopathy, lumbar region Comprehensive [place]. Panel Fast 4 Months E78.00 - Pure hypercholesterolemia, unspecified Referrals Orthopedics Referral M25.561 - Pain in right knee Medications: New ezetimibe 10 mg PO DAILY 90 tabs 3RF 90 days Coding Level of Care Code Est Pt Level 4 (55958) Diagnoses Coronary artery disease involving [place] coronary artery of [place] heart without angina pectoris I25.10 Coronary Disease-Associated Artery/Lesion type: [place] artery [place] vs. transplanted heart: [place] heart Associated angina: without angina Pure hypercholesterolemia E78.00 Benign essential hypertension I10 Obstructive sleep apnea G47.33 Moderate persistent asthma without complication J45.40 Asthma severity: moderate Asthma persistence: persistent Asthma complication type: uncomplicated Low back pain without sciatica, unspecified back pain laterality, unspecified chronicity M54.50 Chronicity: unspecified Back pain laterality: unspecified Sciatica presence: without sciatica Right knee pain, unspecified chronicity M25.561 Chronicity: unspecified Memory impairment R41.3
== END 2023-11-10 12:21 | disposition home or self-care (01) ==
PROVIDERS: PCP Internal Medicine; Visit Provider Internal Medicine
DX: I25.10 Atherosclerotic heart disease of native coronary artery without angina pectoris (principal); E78.00 Pure hypercholesterolemia, unspecified; I10 Essential (primary) hypertension; G47.33 Obstructive sleep apnea (adult) (pediatric); J45.40 Moderate persistent asthma, uncomplicated; M54.50 Low back pain, unspecified; M25.561 Pain in right knee; R41.3 Other amnesia
CPT/HCPCS: 99499

== ENCOUNTER 2023-11-18 09:54 | Outpatient (AMB) | payer MEDICARE, SELFPAY ==
[2023-02-13 09:18] VITALS: BP 128/72; BP 142/80; BP 144/74; BMI 25.4
[2023-11-18 09:56] VITALS: BMI 24.5
--- NOTE | 2023-11-18 09:56 | MHC.OFFVIS ---
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 The patient describes his pain as sharp and severe in nature, 6/10. Most of the pain is along the medial aspect of the patient's knee. He has done physical therapy which aggravated his pain. He has also tried Tylenol and anti-inflammatory medicines which gave him minimal relief. He states that his right knee will give out several times per day. Allergies No Known Allergies Allergy (Verified 11/18/23 10:15) Medication List - Last Reconciled 11/18/23 by Tan Orellana MD aspirin 81 mg PO DAILY atorvastatin 80 mg PO DAILY 90 days oibrjotmag-brcjviqk-syupnycwkp 160-9-4.8 mcg/actuation (Breztri Aerosphere) 2 inhalations inhalation BID 30 days ezetimibe 10 mg PO DAILY 90 days gabapentin 300 mg PO BEDTIME PRN hydrochlorothiazide 25 mg PO DAILY 90 days hydrocortisone 2.5% topical hydroxyzine HCl 25 mg PO DAILY PRN losartan 50 mg PO DAILY triamcinolone acetonide 0.1% 1 appl topical BID PFSH Medical History Chronic cough Chronic rhinitis Asthma Vitamin D deficiency Encounter for screening for malignant neoplasm of prostate COVID-19 vaccine series completed Left ankle pain Left foot pain Coronary artery disease Overweight (BMI 25.0-29.9) Seborrheic dermatitis of scalp Cervical disc disease Cardiac murmur Lumbar degenerative disc disease Pure hypercholesterolemia Benign essential hypertension Obstructive sleep apnea Diarrhea Anorexia Nausea Abdominal pain Surgical History History of cardiac cath Hx of colonoscopy History of esophagogastroduodenoscopy (EGD) History of heart artery stent History of fusion of cervical spine S/P rotator cuff surgery Family History Father Hypertension Mother Hypertension Social History (Updated 11/18/23 @ 10:16 by Anel Chris CMA) Housing: House Alcohol intake: current Alcohol intake frequency: a few times a week Alcohol type: beer Patient Tobacco Use Status: Never used Tobacco e-Cigarette/Vaping Use: Never Used Second Hand Smoke Exposure: Yes Substance Use Type: Marijuana service: Yes ([employer]) Current occupational status: disabled 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 Cognitive needs: No Hearing needs: No Vision needs: Yes Physical Exam Vital Signs: BMI result Body Mass Index 24.5 Const Other: Well-nourished well-developed very friendly male awake alert and oriented x3 in no acute distress Extrem Other: Bilateral lower extremity examination shows good capillary refill, no skin lesions noted, normal sensation light touch Right knee examination shows a minimal effusion, minimal crepitus with range of motion, tenderness along his medial joint line, positive Pedro's test, no instability Results Reviewed Results Reviewed: Standing full weight-bearing x-rays of the patient's right knee show mild diffuse joint space narrowing, no acute bony abnormalities Assessment & Plan Assessment & Plan (1) Tear of medial meniscus of right knee: Code(s): S83.241A - Other tear of medial meniscus, current injury, right knee, initial encounter Plan Mr. Gallagher presents with progressively worsening right knee pain and mechanical symptoms most likely due to a tear of his medial meniscus. Thus, I will send the patient for an MRI of his right for further evaluation. I will see him back once the MRI is completed to discuss the findings and treatment options. Feel free to call me at any time should questions regarding his orthopedic management arise. Thank you very much for asking me to see this very friendly gentleman. I spent 22 minutes in reviewing the patient's records and imaging studies, seeing the patient and documenting in the medical record. Orders: Orders XR knee RT 3V Today M25.561 - Pain in right knee MR knee RT wo con Today S83.241A - Other tear of medial meniscus, current injury, right knee, initial encounter Coding Level of Care Code New Pt Level 2 (57518) Diagnoses Tear of medial meniscus of right knee S83.241A
== END 2023-11-18 10:40 | disposition home or self-care (01) ==
PROVIDERS: PCP Internal Medicine; Visit Provider Orthopaedic Surgery
DX: S83.241A Other tear of medial meniscus, current injury, right knee, initial encounter (principal)
CPT/HCPCS: 99202

== ENCOUNTER 2023-11-18 11:32 | Outpatient (REF) | payer MEDICARE, SELFPAY ==
[2023-02-13 09:18] VITALS: BP 128/72; BP 142/80; BP 144/74; BMI 25.4
--- NOTE | ~2023-11-18 | XR_ITS ---
EXAMINATION: XR KNEE, RIGHT CLINICAL INFORMATION: Pain COMPARISON: Right knee x-rays December 05, 2021 TECHNIQUE: Three views of the right knee. FINDINGS: No fracture or dislocation. Trace suprapatellar joint effusion. Joint spaces are well-maintained. No significant degenerative changes of the right knee. No localized soft tissue swelling of the anterior knee. XR/XR knee RT 3V IMPRESSION: Trace suprapatellar joint effusion.
== END 2023-11-18 11:33 | disposition home or self-care (01) ==
LOC: HO.HOSX 11:32
PROVIDERS: Visit Provider Orthopaedic Surgery
DX: S83.241A Other tear of medial meniscus, current injury, right knee, initial encounter (principal)
CPT/HCPCS: 73562; 99202

== ENCOUNTER 2023-12-01 09:59 | Outpatient (AMB) | payer MEDICARE, SELFPAY ==
[2023-02-13 09:18] VITALS: BP 128/72; BP 142/80; BP 144/74; BMI 25.4
[2023-12-01 10:03] VITALS: BMI 24.5
--- NOTE | 2023-12-01 10:03 | MHC.OFFVIS ---
Intake Vital Signs 12/01/23 10:03 Height 5 ft 9 in Weight 166 lb BMI 24.5 Intake Visit Reasons: OV - right knee MRI review Intake Note: Melissa is a 58 year old male who presents for a MRI review of his Right knee. Patient reports he has no changes. The patient reports intermittent discomfort in both of his knees. He denies any locking or giving way. He does not take any medicines for his discomfort. He does add turmeric to his food. Allergies No Known Allergies Allergy (Verified 12/01/23 10:41) Medication List - Last Reconciled 12/01/23 by Tan Orellana MD aspirin 81 mg PO DAILY atorvastatin 80 mg PO DAILY 90 days yuyetlsdkr-adgqycfz-fexvutmzcc 160-9-4.8 mcg/actuation (Breztri Aerosphere) 2 inhalations inhalation BID 30 days celecoxib (Celebrex) 200 mg PO DAILY PRN ezetimibe 10 mg PO DAILY 90 days gabapentin 300 mg PO BEDTIME PRN hydrochlorothiazide 25 mg PO DAILY 90 days hydrocortisone 2.5% topical hydroxyzine HCl 25 mg PO DAILY PRN losartan 50 mg PO DAILY triamcinolone acetonide 0.1% 1 appl topical BID PFSH Medical History Chronic cough Chronic rhinitis Asthma Vitamin D deficiency Encounter for screening for malignant neoplasm of prostate COVID-19 vaccine series completed Left ankle pain Left foot pain Coronary artery disease Overweight (BMI 25.0-29.9) Seborrheic dermatitis of scalp Cervical disc disease Cardiac murmur Lumbar degenerative disc disease Pure hypercholesterolemia Benign essential hypertension Obstructive sleep apnea Diarrhea Anorexia Nausea Abdominal pain Surgical History History of cardiac cath Hx of colonoscopy History of esophagogastroduodenoscopy (EGD) History of heart artery stent History of fusion of cervical spine S/P rotator cuff surgery Family History Father Hypertension Mother Hypertension Social History Housing: House Alcohol intake: current Alcohol intake frequency: a few times a week Alcohol type: beer Patient Tobacco Use Status: Never used Tobacco e-Cigarette/Vaping Use: Never Used Second Hand Smoke Exposure: Yes Substance Use Type: Marijuana service: Yes ([employer]) Current occupational status: disabled 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 Cognitive needs: No Hearing needs: No Vision needs: Yes Physical Exam Vital Signs: BMI result Body Mass Index 24.5 Const Other: Well-nourished well-developed very friendly male awake alert and oriented x3 in no acute distress Extrem Other: Bilateral lower extremity examination shows good capillary refill, no skin lesions noted, normal sensation light touch Right knee examination shows a minimal effusion, minimal crepitus with range of motion, negative Pedro's test, no instability, mild tenderness over his quadriceps tendon Assessment & Plan Assessment & Plan (1) Right knee pain: Code(s): M25.561 - Pain in right knee Qualifiers: Chronicity: unspecified Qualified Code(s): M25.561 - Pain in right knee Plan Mr. Gallagher presents with right knee pain due to quadriceps tendinitis. I had a lengthy discussion with the patient regarding the treatment options. I did give him a prescription for Celebrex. Activity modifications were also discussed at length with the patient. He will contact me prior to his follow-up appointment in 2 months should his symptoms worsen in any way. Feel free to call me at any time should questions regarding his orthopedic management arise. I spent 19 minutes in reviewing the patient's records and imaging studies, seeing the patient and documenting in the medical record. Medications: New celecoxib (Celebrex) 200 mg PO DAILY PRN 30 caps 3RF pain Coding Level of Care Code Est Pt Level 2 (92780) Diagnoses Right knee pain, unspecified chronicity M25.561 Chronicity: unspecified
== END 2023-12-01 10:54 | disposition home or self-care (01) ==
PROVIDERS: PCP Internal Medicine; Visit Provider Orthopaedic Surgery
DX: M25.561 Pain in right knee (principal)
CPT/HCPCS: 99213

== ENCOUNTER → 2023-12-01 09:59 | Outpatient (BNVA) | payer MEDICARE, SELFPAY ==
[2023-02-13 09:18] VITALS: BP 128/72; BP 142/80; BP 144/74; BMI 25.4
== END ==
PROVIDERS: PCP Internal Medicine; Visit Provider Orthopaedic Surgery
DX: M25.561 Pain in right knee (principal)
CPT/HCPCS: 99212

== ENCOUNTER 2023-12-08 09:17 | Outpatient (AMB) | payer MEDICARE, SELFPAY ==
[2023-02-13 09:18] VITALS: BP 128/72; BP 142/80; BP 144/74; BMI 25.4
[2023-12-08 09:39] VITALS: BP 136/70; PULSE 59; O2SAT 100; BMI 23.6
--- NOTE | 2023-12-08 09:39 | MHC.OFFVIS ---
Intake Vital Signs 12/08/23 09:39 Height 5 ft 9 in Weight 160 lb BMI 23.6 BP 136/70 Blood Pressure Location Lt brachial Position Sitting Pulse 59 Pulse Source Pulse Oximeter Pulse Oximetry (%) 100 Oxygen Delivery Method Room Air Intake Visit Reasons: asthma Rail Layer Required: No Allergies No Known Allergies Allergy (Verified 12/08/23 09:41) HPI HPI Comments History of Present Illness Details The patient is a 58-year-old gentleman presenting with chronic cough. Cough is moderate severity. Typically nonproductive in nature. It occurs in the dependent of the time were position. Denies any significant a reflux disease. Denies any heartburns. Does have nasal congestion and does have a component of allergies. The patient also has been noticing some increasing shortness of breath primarily with activity. Mild in severity. During the office visit we did go for brief walking oximetry. The patient did get winded after going up a couple stairs. However, his oxygen was reassuring and his heart rate also was slightly elevated in the low 100s. Once the patient's that down her recover. There may be a component of deconditioning as well. Patient is aware of this. In the meantime he also underwent pulmonary function studies which we personally reviewed. His lung capacity is excellent. 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 the patient does does report some intermittent chest tightness and shortness of breath. He may have a component of exercise-induced asthma. Would be reasonable to treat him. Patient also will have allergy testing to address the question of his chronic rhinitis also contributing to his symptoms. 10/14/2022 the patient is here for pulmonary follow-up visit. He continues to be about the same. Still complaining about shortness of breath [id number] severity. Still having episodes of coughing. He could not get the Advair because it was too expensive. The patient does to continue to use his rescue inhaler a couple times a week. Therefore, I will go ahead and try a different combination inhaler, Symbicort. If this continues to be expensive for him then he can consider using a good Rx card in getting a combination inhaler which would be potentially significantly less. In the meantime he continues uses CPAP. although, he has not been able to get supplies from his current DME company. He did call his insurance company and they recommended that he seek out a different DME company, [email or web address]. I will send a prescription to [email or web address] for CPAP supplies. However, if there are any ongoing issues with his current DME company he is on likely to get CPAP supplies from the new company. 06/10/2023 the patient is here for a pulmonary follow-up visit. The patient recently developed a cold and had worsening respiratory symptoms. Complaint of wheezing and chest tightness. Unfortunately, he has not been able to afford any inhalers. The last 1 we sent the still expensive therefore he does not have any medications right now. The patient does not have a nebulizer either. I do have a free trial for an inhaler which I will provide him in order for him to get a month supply and hopefully be able to use it and improve his overall respiratory status. The patient should also have a rescue inhaler available. Also, the patient has not been using his CPAP. Unfortunately he also bill and he can not get supplies until he takes care that Bill through his DME company very he is sleeping on his side maintaining positional therapy. Denies any significant daytime drowsiness. His Fillmore score is 7/24. Therefore he will continue with positional therapy and will start the new inhaler. 12/08/2023 the patient is here for a pulmonary follow-up visit. He continues have shortness of breath with activity. He does sleep upstairs and he goes up 2 flights of stairs when she gets to the top he is very short of breath winded and also with palpitations. Moderate severity. Does get better with rest. He has been on maximum respiratory therapy with adequate response. The patient also continues uses CPAP. The CPAP therapy continues to be affecting beneficial. He does use it for more than 4 hours a night. He does not have any significant daytime drowsiness. Will go ahead and request a download from his DME company to make sure. We did again go up a flight of stairs while in office and I did check his oxygen and pulse. Initially he was doing okay and then he quickly jumped from about 80 beats per minute to about 120 very quickly then he became short of breath. Therefore I do believe that this more cardiovascular issue. He will be following up with his die tester soon. [facility], [facility] Medical History Chronic cough Chronic rhinitis Asthma Vitamin D deficiency Encounter for screening for malignant neoplasm of prostate COVID-19 vaccine series completed Left ankle pain Left foot pain Coronary artery disease Overweight (BMI 25.0-29.9) Seborrheic dermatitis of scalp Cervical disc disease Cardiac murmur Lumbar degenerative disc disease Pure hypercholesterolemia Benign essential hypertension Obstructive sleep apnea Diarrhea Anorexia Nausea Abdominal pain Surgical History History of cardiac cath Hx of colonoscopy History of esophagogastroduodenoscopy (EGD) History of heart artery stent History of fusion of cervical spine S/P rotator cuff surgery Family History Father Hypertension Mother Hypertension Social History Housing: House Alcohol intake: current Alcohol intake frequency: a few times a week Alcohol type: beer Patient Tobacco Use Status: Never used Tobacco e-Cigarette/Vaping Use: Never Used Second Hand Smoke Exposure: Yes Substance Use Type: Marijuana service: Yes ([employer]) Current occupational status: disabled 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 Cognitive needs: No Hearing needs: No Vision needs: Yes Review of Systems Const Denies daytime sleepiness and Denies fever(s) Eyes Denies change in vision ENT Denies change in voice and Reports nasal congestion Card Denies chest pain, Reports palpitations and Reports dyspnea on exertion Resp Denies chest congestion, Reports dyspnea on exertion and Denies wheezing GI Denies dyspepsia and Denies heartburn Musc Reports no additional complaints Skin/Breast Denies rash Neuro Reports no additional complaints Endo Denies heat intolerance and Reports palpitations Krunal/Lymph Denies easy bleeding Aller/Immun Denies wheezing Physical Exam Vital Signs: Last Vital Signs Pulse 59 12/08/23 09:39 BP 136/70 12/08/23 09:39 Pulse Ox 100 12/08/23 09:39 Oxygen Delivery Method Room Air 12/08/23 09:39 BMI result Body Mass Index 23.6 Const General: comfortable HEENT Head: Yes atraumatic General nose exam: Abnormal mucous membranes and turbinates present erythematous Eyes General: appearance normal, both eyes and all related structures Neck Neck: Yes supple Chest Chest palpation & inspection: normal inspection of the chest Resp Effort & Inspection: normal respiratory effort and No prolonged expiratory phase Auscultation: clear to auscultation bilaterally and no wheezes Cardio Rate: regular rate Rhythm: regular rhythm Heart sounds: S1 normal heart sound present and S2 normal heart sound present Skin General skin exam: no rashes or lesions noted Extrem General: Yes no clubbing, cyanosis or edema Assessment & Plan Assessment & Plan (1) Asthma: Code(s): J45.909 - Unspecified asthma, uncomplicated Qualifiers: Asthma complication type: uncomplicated Asthma persistence: persistent Asthma severity: moderate Qualified Code(s): J45.40 - Moderate persistent asthma, uncomplicated (2) SOB (shortness of breath): Code(s): R06.02 - Shortness of breath (3) Chronic rhinitis: Code(s): J31.0 - Chronic rhinitis (4) Chronic cough: Code(s): R05.3 - Chronic cough (5) Obstructive sleep apnea: Code(s): G47.33 - Obstructive sleep apnea (adult) (pediatric) Plan continue Breztri MYKE as needed continue CPAP , supplies sent to [facility]. Continue exercise regimen continues to have tachycardia and dyspnea. He is has been optimized from a pulmonary standpoint, but still symptomatic. I would recommend further cardiac evaluation at this time. F/U 8-12 months Coding Level of Care Code Est Pt Level 4 (21241) Diagnoses Moderate persistent asthma without complication J45.40 Asthma complication type: uncomplicated Asthma persistence: persistent Asthma severity: moderate SOB (shortness of breath) R06.02 Chronic rhinitis J31.0 Chronic cough R05.3 Obstructive sleep apnea G47.33 Time Spent (min) 18
== END 2023-12-08 10:09 | disposition home or self-care (01) ==
PROVIDERS: PCP Internal Medicine; Visit Provider Hospitalist
DX: J45.40 Moderate persistent asthma, uncomplicated (principal); R06.02 Shortness of breath; J31.0 Chronic rhinitis; R05.3 Chronic cough; G47.33 Obstructive sleep apnea (adult) (pediatric)
CPT/HCPCS: 99214

== ENCOUNTER → 2023-12-08 09:17 | Outpatient (BNVA) | payer MEDICARE, SELFPAY ==
[2023-02-13 09:18] VITALS: BP 128/72; BP 142/80; BP 144/74; BMI 25.4
== END ==
PROVIDERS: PCP Internal Medicine; Visit Provider Hospitalist
DX: J45.40 Moderate persistent asthma, uncomplicated (principal); J31.0 Chronic rhinitis; G47.33 Obstructive sleep apnea (adult) (pediatric)
CPT/HCPCS: 99212

== ENCOUNTER 2024-02-02 10:25 | Outpatient (AMB) | payer MEDICARE, SELFPAY ==
[2023-02-13 09:18] VITALS: BP 128/72; BP 142/80; BP 144/74; BMI 25.4
[2024-02-02 10:30] VITALS: BMI 23.6
--- NOTE | 2024-02-02 10:30 | A.OFFVIS_ITS ---
Vital Signs 02/02/24 10:30 Height 5 ft 9 in Weight 160 lb BMI 23.6 Intake Visit Reasons: OV - right knee pain Intake Note: Melissa is a 58 year old male who presents with complaints of mild intermittent discomfort in his right knee. The patient states that his symptoms have improved since his last appointment. He has been taking fish oil, turmeric and drinking shakes containing fruits and vegetables as well as she is seeds and flaxseed. He has taken the Celebrex only 2 or 3 times since his last appointment. Allergies No Known Allergies Allergy (Verified 02/02/24 10:34) Medication List - Last Reconciled 02/02/24 by Tan Orellana MD aspirin 81 mg PO DAILY atorvastatin 80 mg PO DAILY 90 days [id number] 160-9-4.8 mcg/actuation (Breztri Aerosphere) 2 inhalations inhalation BID 30 days ezetimibe 10 mg PO DAILY 90 days gabapentin 300 mg PO BEDTIME PRN hydrochlorothiazide 25 mg PO DAILY 90 days hydrocortisone 2.5% topical hydroxyzine HCl 25 mg PO DAILY PRN losartan 50 mg PO DAILY triamcinolone acetonide 0.1% 1 appl topical BID PFSH Medical History Chronic cough Chronic rhinitis Asthma Vitamin D deficiency Encounter for screening for malignant neoplasm of prostate COVID-19 vaccine series completed Left ankle pain Left foot pain Coronary artery disease Overweight (BMI 25.0-29.9) Seborrheic dermatitis of scalp Cervical disc disease Cardiac murmur Lumbar degenerative disc disease Pure hypercholesterolemia Benign essential hypertension Obstructive sleep apnea Diarrhea Anorexia Nausea Abdominal pain Surgical History History of cardiac cath Hx of colonoscopy History of esophagogastroduodenoscopy (EGD) History of heart artery stent History of fusion of cervical spine S/P rotator cuff surgery Family History Father Hypertension Mother Hypertension Social History Housing: House Alcohol intake: current Alcohol intake frequency: a few times a week Alcohol type: beer Patient Tobacco Use Status: Never used Tobacco e-Cigarette/Vaping Use: Never Used Second Hand Smoke Exposure: Yes Substance Use Type: Marijuana service: Yes ([employer]) Current occupational status: disabled 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 Cognitive needs: No Hearing needs: No Vision needs: Yes Physical Exam Vital Signs: BMI result Body Mass Index 23.6 Const Other: Well-nourished well-developed very friendly male awake alert and oriented x3 in no acute distress Extrem Other: Bilateral lower extremity examination shows good capillary refill, no skin lesions noted, normal sensation light touch Right knee examination shows minimal discomfort with range of motion Assessment & Plan Assessment & Plan (1) Right knee pain: Code(s): M25.561 - Pain in right knee Category: Medical Qualifiers: Chronicity: unspecified Qualified Code(s): M25.561 - Pain in right knee Plan Mr. Gallagher presents with right knee intermittent discomfort due to early degenerative joint disease as well as tendinitis. This point the patient's symptoms continue to improve. We will hold off on an injection. He will continue with his healthy lifestyle. He will follow up with me on an as-needed basis should his symptoms worsen in any way. Feel free to call me at any time should questions regarding his orthopedic management arise. I spent 15 minutes in reviewing the patient's records and imaging studies, lizbeth g the patient and documenting in the medical record. Coding Level of Care Code Est Pt Level 2 (85155) Diagnoses Right knee pain, unspecified chronicity M25.561 Chronicity: unspecified
== END 2024-02-02 10:50 | disposition home or self-care (01) ==
PROVIDERS: PCP Internal Medicine; Visit Provider Orthopaedic Surgery
DX: M25.561 Pain in right knee (principal)
CPT/HCPCS: 99212

== ENCOUNTER → 2024-02-02 10:25 | Outpatient (BNVA) | payer MEDICARE, SELFPAY ==
[2023-02-13 09:18] VITALS: BP 128/72; BP 142/80; BP 144/74; BMI 25.4
== END ==
PROVIDERS: PCP Internal Medicine; Visit Provider Orthopaedic Surgery
DX: M25.561 Pain in right knee (principal)
CPT/HCPCS: 99212

== ENCOUNTER 2024-02-10 11:04 | Outpatient (AMB) | payer MEDICARE, SELFPAY ==
[2023-02-13 09:18] VITALS: BP 128/72; BP 142/80; BP 144/74; BMI 25.4
[2024-02-10 11:05] VITALS: BP 114/62; PULSE 59; BMI 25.0
--- NOTE | 2024-02-10 11:05 | A.OFFVIS_ITS ---
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: No Accompanied by: Self / Same As Patient Allergies No Known Allergies Allergy (Verified 02/02/24 10:34) Medication List - Last Reconciled 02/10/24 by Zak Foster MD aspirin 81 mg PO DAILY atorvastatin 80 mg PO DAILY 90 days [id number]-hwnthumo-hajkwhfntk 160-9-4.8 mcg/actuation (Breztri Aerosphere) 2 inhalations inhalation BID 30 days ezetimibe 10 mg PO DAILY 90 days gabapentin 300 mg PO BEDTIME PRN hydrochlorothiazide 25 mg PO DAILY 90 days hydrocortisone 2.5% topical hydroxyzine HCl 25 mg PO DAILY PRN losartan 50 mg PO DAILY triamcinolone acetonide 0.1% 1 appl topical BID HPI Comments Details: 58-year-old gentleman here for follow-up. He has background history of hypertension. His blood pressure control is good. He had exertional chest discomfort and reported previous PCI. He was taken cardiac catheterization which revealed mild disease in the LAD and no evidence of previous stents. He has been diagnosed with asthma. His main complaints are shortness of breath and chest tightness when he does activities. Unfortunately he is having some issues with affording the inhalers at this stage. 02/10/24: He is here for follow-up. He has asthma and has been using inhalers. He is still gets some chest tightness which who is with inhalers. Occasionally gets fluttering of his chest at rest which lasts for few seconds. He is saying that he had 6 minute walk test with Dr. Peace where his heart rate went up quite quickly with activity. [facility] Medical History Chronic cough Chronic rhinitis Asthma Vitamin D deficiency Encounter for screening for malignant neoplasm of prostate COVID-19 vaccine series completed Left ankle pain Left foot pain Coronary artery disease Overweight (BMI 25.0-29.9) Seborrheic dermatitis of scalp Cervical disc disease Cardiac murmur Lumbar degenerative disc disease Pure hypercholesterolemia Benign essential hypertension Obstructive sleep apnea Diarrhea Anorexia Nausea Abdominal pain Surgical History History of cardiac cath Hx of colonoscopy History of esophagogastroduodenoscopy (EGD) History of heart artery stent History of fusion of cervical spine S/P rotator cuff surgery Family History Father Hypertension Mother Hypertension Social History Housing: House Alcohol intake: current Alcohol intake frequency: a few times a week Alcohol type: beer Patient Tobacco Use Status: Never used Tobacco e-Cigarette/Vaping Use: Never Used Second Hand Smoke Exposure: Yes Substance Use Type: Marijuana service: Yes ([employer]) Current occupational status: disabled 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 Cognitive needs: No Hearing needs: No Vision needs: Yes Review of Systems Const Denies chills, Denies fatigue, Denies fever(s), Denies frequent falls, Denies weakness, Denies weight gain and Denies weight loss ENT Denies dizziness Card Denies chest pain, Denies leg edema, Denies lightheadedness, Denies palpitations, Denies dyspnea and Denies dyspnea on exertion Resp Denies cough, Denies dyspnea and Denies dyspnea on exertion GI Denies hematochezia Musc Denies abnormal gait, Denies muscle weakness, Denies numbness, Denies radiating pain into limb and Denies tingling Neuro Denies abnormal gait, Denies dizziness, Denies frequent falls, Denies numbness, Denies tingling and Denies weakness Endo Denies fatigue and Denies palpitations Physical Exam Vital Signs: Last Vital Signs Pulse 59 02/10/24 11:05 BP 114/62 02/10/24 11:05 BMI result Body Mass Index 25.0 GENERAL APPEARANCE: in no acute distress, pleasant. NECK: no carotid bruit, no jugular venous distention. SKIN: no suspicious lesions, warm and dry. HEART: no murmurs, regular rate and rhythm. LUNGS: clear to auscultation bilaterally. ABDOMEN: soft, nontender. EXTREMITIES: no edema. PERIPHERAL PULSES: equal. NEUROLOGIC: No gross deficits, AAO X 3 Office Procedures EKG Details: Sinus bradycardia 59 beats per minute, leftward axis, minimal voltage criteria for LVH, QTC 405 milliseconds. [id number], Complete Assessment & Plan Assessment & Plan (1) Essential hypertension: Code(s): I10 - Essential (primary) hypertension Category: Medical (2) Palpitations: Code(s): R00.2 - Palpitations Category: Medical Plan [age] year gentleman who is here for follow-up. Blood pressure is well controlled on current regimen. He occasionally gets fluttering in his chest at rest which lasts for few seconds. He has a pulse ox at home. I have advised him to keep an eye on his heart rate. If he had any persistent palpitations/fluttering then he will reach out to us and we will arrange monitoring for him. Currently it appears he gets few seconds of symptoms and then the improved. He is describing some tachycardia with ambulation during 6 minute walk test. In most cases this is due to deconditioning which I have explained to him. Previously we have done cardiac catheterization on him given his reported history of angioplasty in [place]. He did not have any stents in the coronary arteries seen during angiography and did not have any significant coronary artery disease. Follow-up with us in 6 months. Thank you for allowing me to participate in the care of your patient. Please feel free to contact me if you have any questions. Coding Level of Care Code Est Pt Level 4 (07264) Diagnoses Essential hypertension I10 Palpitations R00.2 CPT Codes EKG - CPT: 20872-[id number], Complete ([id number])
== END 2024-02-10 12:57 | disposition home or self-care (01) ==
LOC: HO.HCS 11:04
PROVIDERS: PCP Internal Medicine; Visit Provider Internal Medicine Cardiovascular Disease
DX: I10 Essential (primary) hypertension (principal); R00.2 Palpitations
CPT/HCPCS: 93010; 99214

== ENCOUNTER → 2024-02-10 11:04 | Outpatient (BNVA) | payer MEDICARE, SELFPAY ==
[2023-02-13 09:18] VITALS: BP 128/72; BP 142/80; BP 144/74; BMI 25.4
== END ==
PROVIDERS: PCP Internal Medicine; Visit Provider Internal Medicine Cardiovascular Disease
DX: I10 Essential (primary) hypertension (principal); R00.2 Palpitations
CPT/HCPCS: 93005; 99212

== ENCOUNTER 2024-04-07 14:09 | Emergency (ER) | payer MEDICARE, SELFPAY ==
[2023-02-13 09:18] VITALS: BP 128/72; BP 142/80; BP 144/74; BMI 25.4
--- NOTE | ~2024-04-07 | CT_ITS ---
EXAMINATION: CT KNEE WITHOUT CONTRAST, RIGHT CLINICAL INFORMATION: Pain post fall COMPARISON: Plain films earlier today TECHNIQUE: Multiple serial thin slice helical CT scan images through the right knee were obtained. Soft tissue and bony algorithms evaluated. Coronal and sagittal reformatted images were performed. This CT examination was performed using dose optimization techniques as appropriate, variously including the following: *Automated exposure control *Adjustment of mA and/or kV according to patient size (this includes techniques or standardized protocols for targeted exams where dose is matched to indication/reason for exam; i.e. extremities or head) *Use of iterative reconstruction technique DLP: 197 mGy-cm FINDINGS: Large knee joint lipohemarthrosis. Minimally comminuted fracture through the mid to posterior aspect of the medial tibial plateau with the 1 mm step-off along the articular surface and mild cortical step-off along the medial tibial metaphysis. No other acute bony abnormality seen. Mild soft tissue swelling about the knee. CT/CT knee RT wo IV con IMPRESSION: Minimally comminuted fracture through the mid to posterior aspect of the medial tibial plateau with 1 mm step-off along the articular surface and mild cortical step-off along the medial tibial metaphysis. Large knee joint lipohemarthrosis.
--- NOTE | ~2024-04-07 | XR_ITS ---
EXAMINATION: XR KNEE, RIGHT CLINICAL INFORMATION: Fall. Pain. COMPARISON: Right knee November 18, 2023, December 05, 2021 TECHNIQUE: Four views of the right knee. FINDINGS: Large suprapatellar joint effusion. Possible fracture of the tibia seen on lateral view at the mid posterior articular surfaces of bone. There is apparent cortical discontinuity of the tibial plateau. There is a vague radiolucent line involving the proximal tibia at the medial metaphysis . The patella is normal. There is no dislocation. XR/XR knee RT 3V IMPRESSION: 1. Large suprapatellar joint effusion. 2. Possible fracture of the tibia at the posterior articular surfaces of bone. CT of the knee would be helpful for further evaluation.
[2024-04-07 14:37] VITALS: BP 170/81; PULSE 60; RESP 16; TEMP 36.8; O2SAT 95; BMI 23.6
--- NOTE | 2024-04-07 14:38 | ED.GENADULT ---
HPI - General Adult General Chief complaint: Extremity Injury, Lower Stated complaint: knee inj Time Seen by Provider: 04/07/24 15:31 Source: patient Mode of arrival: ambulatory Limitations: no limitations History of Present Illness ED Provider: Beverly CANNON HPI narrative: Is a 58-year-old male history of asthma, anorexia, coronary artery disease, obesity, murmur, seborrheic dermatitis, hypertension, hyperlipidemia, presenting to the emergency department complaints of right knee pain status post fall just prior to arrival, he reports he was going down his back steps, he tripped/lost his footing and landed right onto his right knee. No head strike, no loss of consciousness. Patient is not on anticoagulants. He denies preceding symptoms to fall such as chest pain, shortness of breath, dizziness. At this time he only reports right knee pain, no numbness or tingling. Denies chest pain, shortness of breath, headache, vision changes, dizziness and weakness. Related Data Home Medications ?Medication ?Instructions ?Recorded ?Confirmed aspirin 81 mg tablet,delayed 81 mg PO DAILY 01/17/21 02/10/24 release hydrocortisone 2.5 % topical topical 12/05/21 02/10/24 ointment triamcinolone acetonide 0.1 % 1 appl topical BID 12/05/21 02/10/24 topical ointment hydroxyzine HCl 25 mg tablet 25 mg PO DAILY PRN 07/30/22 02/10/24 Previous Rx's ?Medication ?Instructions ?Recorded gabapentin 300 mg capsule 300 mg PO BEDTIME PRN pain #30 caps 02/24/23 budesonide 160 mcg-glycopyr 9 2 inh inhalation BID 30 days #10.7 06/10/23 mcg-formot 4.8 mcg/actuation HFA grams inhaler (Breztri Aerosphere) ezetimibe 10 mg tablet 10 mg PO DAILY 90 days #90 tabs 12/07/23 atorvastatin 80 mg tablet 80 mg PO DAILY 90 days #90 tabs 03/14/24 hydrochlorothiazide 25 mg tablet 25 mg PO DAILY 90 days #90 tabs 03/14/24 losartan 50 mg tablet 50 mg PO DAILY #90 tabs 04/02/24 ketorolac 10 mg tablet 10 mg PO TID PRN pain 5 days #15 04/07/24 tabs morphine 15 mg immediate release 15 mg PO Q6H PRN pain 5 days #10 04/07/24 tablet tabs Allergies Allergy/AdvReac Type Severity Reaction Status Date / Time No Known Allergies Allergy Verified 04/07/24 14:38 Review of Systems Review of Systems: Yes all other systems are reviewed and are negative [facility] Past Medical History Attestation statement: The following information was validated with the patient. Source: old records reviewed and nursing notes reviewed Medical History Chronic cough Chronic rhinitis Asthma Vitamin D deficiency Encounter for screening for malignant neoplasm of prostate COVID-19 vaccine series completed Left ankle pain Left foot pain Coronary artery disease Overweight (BMI 25.0-29.9) Seborrheic dermatitis of scalp Cervical disc disease Cardiac murmur Lumbar degenerative disc disease Pure hypercholesterolemia Benign essential hypertension Obstructive sleep apnea Diarrhea Anorexia Nausea Abdominal pain Surgical History History of cardiac cath Hx of colonoscopy History of esophagogastroduodenoscopy (EGD) History of heart artery stent History of fusion of cervical spine S/P rotator cuff surgery Family History Family History Father Hypertension Mother Hypertension Social History Social History Housing: House Alcohol intake: current Alcohol intake frequency: a few times a week Alcohol type: beer Patient Tobacco Use Status: Never used Tobacco e-Cigarette/Vaping Use: Never Used Second Hand Smoke Exposure: Yes Substance Use Type: Marijuana Advance Directives: No Advance Directives Information Provided: No Do you have a plan to hurt others: No Plan service: Yes ([employer]) Current occupational status: disabled 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 Oriented X3.? No acute distress.? Head: Normocephalic, atraumatic, no step-offs or deformities Eyes: Pupils equal, round and reactive to light.? ENT: Pharynx normal.? Neck: Normal inspection.? Neck supple.? CVS: Normal heart rate and rhythm.? Pulses normal.? Respiratory: No respiratory distress.? Breath sounds normal.? Abdomen: Soft and nontender.? Skin: Skin warm and dry.? Normal skin color.? Normal skin turgor.? Extremities: No lower extremity edema.? No calf ttp. 5/5 strength to bilateral upper and lower extremities + large effusion to right knee, normal sensation distally b/l, 2+ popliteal, dp, at, pt pulses equal and b,l. Painful rom to R knee w/ evident swelling overlying no errythema or warmth. Neuro: Oriented X 3.? No motor deficit.? No sensory deficit. CN 2-12 intact Course Course Course Narrative: This is a rapid medical exam performed by Trever Landeros NP: Additional HPI, ROS, PE not included below will be deferred to primary provider. Patient is a 58-year-old male presenting to the ED with right knee pain after a fall prior to arrival. He was going down his back steps when he fell landing onto his right knee. Denies head strike of loss of consciousness. He is not anticoagulated. Plan: xray Reevaluation(s) Reevaluation #1: X-ray of the knee with large suprapatellar joint effusion. Possible fracture of the tibial at the posterior articular surface of the bone CT scan recommended I did run this case by ortho who agrees, they also recommend knee immobilizer, nonweightbearing and follow up outpatient as soon as possible. Patient requesting to leave he does not want to stay as this has been taking too long. Will call him if results are abnormal or different than a posterior tibial fracture, he will follow up with the orthopedic team. Educated patient on diagnosis and treatment plan, answered all question, patient verbalizes understanding. At this time patient will be discharged home, advised to return with new or worsening symptoms. Educated on worrisome signs and symptoms and when to return. At this time I feel comfortable discharge home. Time: 17:32 Medications Administered Discontinued Medications Generic Name Dose Route Start Last Admin Trade Name Freq PRN Reason Stop Dose Admin Acetaminophen 975 mg 04/07/24 15:58 04/07/24 16:05 Acetaminophen 325 Mg Tablet PO 04/07/24 15:59 975 mg ONCE ONE Administration Ketorolac Tromethamine 30 mg 04/07/24 15:58 04/07/24 16:05 Ketorolac Tromethamine 30 Mg/Ml Vial IM 04/07/24 15:59 30 mg ONCE ONE Administration Medical Decision Making Medical Decision Making [facility] Narrative: 1551 58-year-old male presents with right knee pain status post traumatic injury. No head strike or loss of consciousness. Not on blood thinners. Physical exam No lower extremity edema.? No calf ttp. 5/5 strength to bilateral upper and lower extremities + large effusion to right knee, normal sensation distally b/l, 2+ popliteal, dp, at, pt pulses equal and b,l. Painful rom to R knee w/ evident swelling overlying no errythema or warmth. History and physical exam concerning for traumatic bursitis versus contusion versus sprain or strain. Will rule out fractures or dislocation. No signs of neurovascular compromise, threat to limb. No head trauma or trauma to chest, abdomen pelvis unlikely traumatic injuries to the previously listed unlikely intracranial hemorrhage or stroke. Unlikely ACS. Fall was likely mechanical Plan- imaging pain control Differential Diagnosis Differential Diagnoses: The differential diagnosis associated with the presentation includes History and physical exam concerning for traumatic bursitis versus contusion versus sprain or strain. Will rule out fractures or dislocation. No signs of neurovascular compromise, threat to limb. No head trauma or trauma to chest, abdomen pelvis unlikely traumatic injuries to the previously listed unlikely intracranial hemorrhage or stroke. Unlikely ACS. Fall was likely mechanical Admission/Observation Consideration of admission/observation: Escalation of care including admission/observation considered Possible Lab Data [facility] Lab Attestation statement: I reviewed the patient's lab results. Independent Interpretation I performed an independent interpretation of an: Plain X-Ray Radiology Impression Discussion of test interpretation with radiology: I have reviewed the radiologist's reading. External Record Review External record reviewed: Inpatient record, Office record, Outpatient record, Prior outpatient labs, Prior outpatient radiology, Primary care record and Outside ED record Prescription Management I considered prescription management with: Pain Medication Critical Care Time Critical Care Time Critical Care Time: Yes Total Critical Care Time: 35 Attestation: I attest to this time spent taking care of the patient, obtaining history, physical, reviewing labs, imaging, speaking to my attending, specialist or hospitalist. Discharge Plan Discharge Clinical Impression: Bursitis due to trauma, Knee pain, right, Right tibial fracture Patient Disposition: Home, Self-Care Instructions: Crutch Instructions (ED), Knee Pain (ED), R.I.C.E. Treatment (ED) Additional Instructions: Take your medications as prescribed. If you were prescribed antibiotics today, it is important that you take your medication to their entirety, do not skip any doses, do not finish them early. Follow-up with your primary care provider this week. Return to the emergency department with new or worsening symptoms. Such as fevers, chills, chest pain, shortness of breath, nausea, vomiting, dizziness, headache, vision changes, lethargy In case of emergency call 911 Toradol has been sent to your pharmacy, you tolerated this well in the department. Please take this as prescribed do not take this with ibuprofen, or other NSAIDs, do not mix this with alcohol. Side effects of this medication including increased risk for bleeding and possible kidney injury. A narcotic has been sent to your pharmacy please take this as prescribed. Do not take more than the prescribed dose. Narcotic medications can cause addiction. Please do not mix them with alcohol. Do not take them while driving or operating machinery. Do not take them with any other narcotics. Do not share them with friends or family. They can cause constipation. Take them only for severe pain. Prescriptions: New morphine 15 mg tablet 15 mg PO Q6H PRN (Reason: pain) 5 Days Qty: 10 0RF Rx Instructions: Partial Fill upon patient request. ketorolac 10 mg tablet 10 mg PO TID PRN (Reason: pain) 5 Days Qty: 15 0RF No Action gabapentin 300 mg capsule 300 mg PO BEDTIME PRN (Reason: pain) Qty: 30 2RF ezetimibe 10 mg tablet 10 mg PO DAILY 90 Days Qty: 90 3RF hydrochlorothiazide 25 mg tablet 25 mg PO DAILY 90 Days Qty: 90 1RF atorvastatin 80 mg tablet 80 mg PO DAILY 90 Days Qty: 90 1RF losartan 50 mg tablet 50 mg PO DAILY Qty: 90 0RF aspirin 81 mg tablet,delayed release (DR/EC) 81 mg PO DAILY hydrocortisone 2.5 % ointment topical triamcinolone acetonide 0.1 % ointment 1 appl topical BID hydroxyzine HCl 25 mg tablet 25 mg PO DAILY PRN Breztri Aerosphere 160-9-4.8 mcg/actuation HFA aerosol inhaler 2 inh inhalation BID 30 Days Qty: 10.7 11RF Referrals: [facility] [Provider Group] - 1 day Gage Cha MD [Primary Care Provider] - 2 days Print Language: Korean
[2024-04-07] MEDS: Ketorolac Tromethamine 30 MG/ML VIAL IM (16:05)
[2024-04-07] MEDS: Acetaminophen 325 MG TABLET 975 MG PO (16:05)
--- NOTE | 2024-04-07 16:08 | PC.NURSE ---
pt a&ox3, pt medicated for 10/10 rle pain, will continue to monitor
--- NOTE | 2024-04-07 17:42 | PC.NURSE ---
Pt requesting to leave, PA notified. Jaylen wrap, knee immobilizer, and crutches provided. D/C teaching completed by this float RN. Pt to f/u with ortho outpt, aware and agreeable to plan of care.
[2024-04-07 17:43] VITALS: BP 170/81; PULSE 60; RESP 16; TEMP 36.8
== END 2024-04-07 17:46 | disposition home or self-care (01) ==
PROVIDERS: Emergency Provider Emergency Medicine; PCP Internal Medicine
DX: S82.201A Unspecified fracture of shaft of right tibia, initial encounter for closed fracture (principal); M71.561 Other bursitis, not elsewhere classified, right knee; W10.9XXA Fall (on) (from) unspecified stairs and steps, initial encounter; Y93.89 Activity, other specified; Y92.89 Other specified places as the place of occurrence of the external cause; Y99.8 Other external cause status; Z79.899 Other long term (current) drug therapy
CPT/HCPCS: 73562; 73700; 96372; 99283; 99284; J1885

== ENCOUNTER 2024-04-11 08:17 | Outpatient (REF) | payer MEDICARE, SELFPAY ==
[2023-02-13 09:18] VITALS: BP 128/72; BP 142/80; BP 144/74; BMI 25.4
--- NOTE | ~2024-04-11 | XR_ITS ---
EXAMINATION: XR KNEE, RIGHT CLINICAL INFORMATION: Primary osteoarthritis in the right knee. Tibial plateau fracture. COMPARISON: Radiographs dated 04/07/2024. TECHNIQUE: AP and lateral views of the right knee. FINDINGS: There is a mildly depressed fracture of the medial tibial plateau with 3 mm articular cortical depression and step-off. This appears unchanged as compared to prior. No new fractures. Large joint effusion. Soft tissue swelling. XR/XR knee RT 2V IMPRESSION: Unchanged mildly depressed medial tibial plateau fracture.
== END 2024-04-11 08:18 | disposition home or self-care (01) ==
LOC: HO.HOSX 08:17
DX: S82.141A Displaced bicondylar fracture of right tibia, initial encounter for closed fracture (principal)
CPT/HCPCS: 73560; 99202

== ENCOUNTER 2024-04-11 10:47 | Outpatient (AMB) | payer MEDICARE, SELFPAY ==
[2023-02-13 09:18] VITALS: BP 128/72; BP 142/80; BP 144/74; BMI 25.4
--- NOTE | 2024-04-11 11:28 | MHC.OFFVIS ---
Vital Signs 04/11/24 11:29 Height 5 ft 9 in Weight 160 lb BMI 23.6 Intake Visit Reasons: FC- RT tibial fx Intake Note: Melissa is a 58 yo male who presents today for a fracture to the right tibia, DOI 04/07/24, s/p fall. He reports he was going down his back steps, he tripped/lost his footing and landed right onto his right knee. Patient describes constant pain with ambulation and when sleeping, 4 on a 0-10 pain scale. Reports taking Morphine and ketorolac for pain with relief. Patient denies prior injuries or surgeries. Patient using crutches and straight knee brace to help with ambulation. Allergies No Known Allergies Allergy (Verified 04/11/24 11:30) HPI HPI FC- RT tibial fx: Details: Patient is a 58-year-old male who presents for ED follow-up for right tibial plateau fracture, date of injury 04/07/2024. The patient reports that he was walking up some steps, became lightheaded, and fell onto his right knee. The patient reports that he immediately began to experience severe pain particularly in the posterior aspect of his right knee. Patient was evaluated in the emergency department, where CT scan revealed minimally displaced posteromedial tibial plateau fracture. Patient was placed in a knee immobilizer and told to be nonweightbearing, which the patient reports he has been mostly compliant with. Today, the patient reports that his pain has decreased slightly since date of injury, as he has been more compliant with nonweightbearing measures due to being more confident on his crutches. No other acute complaints or concerns at this time. [facility] Medical History Chronic cough Chronic rhinitis Asthma Vitamin D deficiency Encounter for screening for malignant neoplasm of prostate COVID-19 vaccine series completed Left ankle pain Left foot pain Coronary artery disease Overweight (BMI 25.0-29.9) Seborrheic dermatitis of scalp Cervical disc disease Cardiac murmur Lumbar degenerative disc disease Pure hypercholesterolemia Benign essential hypertension Obstructive sleep apnea Diarrhea Anorexia Nausea Abdominal pain Surgical History History of cardiac cath Hx of colonoscopy History of esophagogastroduodenoscopy (EGD) History of heart artery stent History of fusion of cervical spine S/P rotator cuff surgery Family History Father Hypertension Mother Hypertension Social History Housing: House Alcohol intake: current Alcohol intake frequency: a few times a week Alcohol type: beer Patient Tobacco Use Status: Never used Tobacco e-Cigarette/Vaping Use: Never Used Second Hand Smoke Exposure: Yes Substance Use Type: Marijuana service: Yes ([employer]) Current occupational status: disabled 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 No tenderness to palpation over the distal femur, lateral knee, or the distal aspect of the right lower leg. Patient has restricted ROM of the R knee, able to flex to approximately 30 degrees at this time Able to extend to 0 without difficulty Distal sensation intact Capillary refill brisk Compartments soft Office Procedures Fracture Care Details: Right tibial plateau fracture Fracture Billing Code: Fracture Billing Code Results Reviewed Results Reviewed: X-rays obtained in the office today and independently reviewed by me, Remigio Wood PA-C, demonstrate minimally displaced posteromedial tibial plateau fracture with approximately 4 mm of step-off, slightly more displaced than previous x-rays and CT scan obtained in the emergency department. Assessment & Plan Assessment & Plan (1) Tibial plateau fracture, left: Code(s): S82.142A - Displaced bicondylar fracture of left tibia, initial encounter for closed fracture Category: Medical Plan Left tibial plateau fracture, closed Date of injury 04/07/2024 After consultation and discussion with Dr. Guevara, who was available to see the patient in the office today, a joint treatment plan was formed: Who was decided that surgery is not acutely indicated in this patient at this time, and then he will be treated conservatively Patient is educated about this condition and the typical recovery course Patient is informed that he does not have to remain in his immobilizer, but then he must be completely nonweightbearing in his right leg for at least another 5 weeks, while working on gentle ROM and strengthening PT referral placed today for ROM and strengthening Patient will follow up in 5 weeks with repeat x rays for reassessment, sooner with any acute concerns. Orders: Orders PT Evaluation and Treatment Today S82.142A - Displaced bicondylar fracture of left tibia, initial encounter for closed fracture Coding Level of Care Code New Pt Level 3 (21804) Diagnoses Tibial plateau fracture, left S82.142A CPT Codes Fracture Care - Fracture Billing Code: Fracture Billing Code ([id number])
[2024-04-11 11:29] VITALS: BMI 23.6
== END 2024-04-11 12:02 | disposition home or self-care (01) ==
PROVIDERS: PCP Internal Medicine
DX: S82.142A Displaced bicondylar fracture of left tibia, initial encounter for closed fracture (principal)
CPT/HCPCS: 99203

== ENCOUNTER 2024-05-20 09:57 | Outpatient (REF) | payer MEDICARE, SELFPAY ==
[2024-04-11 12:00] VITALS: BP 128/72; BP 142/80; BP 144/74; BMI 25.4
--- NOTE | ~2024-05-20 | XR_ITS ---
EXAMINATION: XR KNEE, BILATERAL CLINICAL INFORMATION: M25.562 - Pain in left knee COMPARISON: Radiographs 04/07/2024 TECHNIQUE: AP standing view both knees. Lateral and sunrise views of the right knee. FINDINGS: Depression and posterior displacement of the posterior medial tibial plateau fracture may have slightly worsened since 04/11/2024. No definite osseous bridging. There is a persistent moderate joint effusion. Normal AP view of the left knee. XR/XR knee RT 3V IMPRESSION: Depression and posterior displacement of the posterior medial tibial plateau fracture may have slightly worsened since 04/11/2024. Electronically signed by: Nazario Grissom MD 05/26/2024 09:25 AM EDT RP
--- NOTE | ~2024-05-20 | XR_ITS ---
EXAMINATION: XR KNEE, BILATERAL CLINICAL INFORMATION: M25.562 - Pain in left knee COMPARISON: Radiographs 04/07/2024 TECHNIQUE: AP standing view both knees. Lateral and sunrise views of the right knee. FINDINGS: Depression and posterior displacement of the posterior medial tibial plateau fracture may have slightly worsened since 04/11/2024. No definite osseous bridging. There is a persistent moderate joint effusion. Normal AP view of the left knee. XR/XR knee LT 1V IMPRESSION: Depression and posterior displacement of the posterior medial tibial plateau fracture may have slightly worsened since 04/11/2024. Electronically signed by: Nazario Grissom MD 05/26/2024 09:25 AM EDT
== END 2024-05-20 09:58 | disposition home or self-care (01) ==
LOC: HO.HOSX 09:57
PROVIDERS: PCP Internal Medicine
DX: M25.562 Pain in left knee (principal); S82.141A Displaced bicondylar fracture of right tibia, initial encounter for closed fracture
CPT/HCPCS: 73560; 73562; 99212

== ENCOUNTER 2024-05-20 10:33 | Outpatient (AMB) | payer MEDICARE, SELFPAY ==
[2024-04-11 12:00] VITALS: BP 128/72; BP 142/80; BP 144/74; BMI 25.4
[2024-05-20 10:36] VITALS: BMI 23.6
--- NOTE | 2024-05-20 10:36 | MHC.OFFVIS ---
Vital Signs 05/20/24 10:36 Height 5 ft 9 in Weight 160 lb BMI 23.6 Intake Visit Reasons: FC- RT tibial fx 5 week f/u Intake Note: Melissa is a 58 yo male who presents today for a follow up evaluation of a fracture to the right tibia, DOI 04/07/24, s/p fall. Patient reports he has been going to PT, which he finds helpful. He states he has pain and stiffnes, patient states leg feels heavy at times, patient is going to regular scheduled PT appointments. Allergies No Known Allergies Allergy (Verified 05/20/24 10:37) HPI HPI FC- RT tibial fx 5 week f/u: Details: Patient is a 58-year-old male who presents for 5 week follow-up status post right tibial plateau fracture, date of injury 04/07/2024. Today, the patient reports that he is still experiencing some pain in his right knee, particularly on the posterior aspect, but this has improved since previous evaluation. The patient reports that he has been seeing PT for his regularly scheduled appointments. Of note, the patient reports that he has been trying to comply with nonweightbearing on the right leg, but states that this has been difficult forearm, and there have been occasions where he has had to put weight on his right knee. The patient reports that PT has been going well. The patient does report that some pain does occur in his right ankle. No other acute complaints or concerns at this time. [facility] Medical History Chronic cough Chronic rhinitis Asthma Vitamin D deficiency Encounter for screening for malignant neoplasm of prostate COVID-19 vaccine series completed Left ankle pain Left foot pain Coronary artery disease Overweight (BMI 25.0-29.9) Seborrheic dermatitis of scalp Cervical disc disease Cardiac murmur Lumbar degenerative disc disease Pure hypercholesterolemia Benign essential hypertension Obstructive sleep apnea Diarrhea Anorexia Nausea Abdominal pain Surgical History History of cardiac cath Hx of colonoscopy History of esophagogastroduodenoscopy (EGD) History of heart artery stent History of fusion of cervical spine S/P rotator cuff surgery Family History Father Hypertension Mother Hypertension Social History Housing: House Alcohol intake: current Alcohol intake frequency: a few times a week Alcohol type: beer Patient Tobacco Use Status: Never used Tobacco e-Cigarette/Vaping Use: Never Used Second Hand Smoke Exposure: Yes Substance Use Type: Marijuana service: Yes ([employer]) Current occupational status: disabled 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 Patient is able to extend the left knee to 0 degrees and flex to approximately 100 degrees without difficulty Distal sensation intact Capillary refill brisk Results Reviewed Results Reviewed: X-rays obtained in the office today and independently reviewed by me, Remigio Wood PA-C, demonstrate fracture of the posteromedial tibial plateau, with a higher measurement of inferior displacement since last visit. Assessment & Plan Assessment & Plan (1) Tibial plateau fracture, right: Code(s): S82.141A - Displaced bicondylar fracture of right tibia, initial encounter for closed fracture Category: Medical Plan 1. Right tibial plateau fracture Date of injury 04/07/2024 Patient was discussed with Dr. Guevara, and a collaborative treatment plan was formed: At this time, due to the patient being 6 weeks out from injury, he is informed that, although the fracture has displaced further from previous visit, he will not be requiring surgery or any other acute intervention Patient is advised that he should remain totally nonweightbearing on his right knee for a further 6 weeks to prevent further displacement of the fracture Patient is informed that, due to this fracture and the further displacement from last visit due to weight-bearing, he is now at increased risk for developing significant arthritis in the right knee moving forward. Patient understands this. Patient will follow-up in 6 weeks with repeat x-rays, sooner with any acute concerns Coding Level of Care Code Global (96175) Diagnoses Tibial plateau fracture, right S82.141A
== END 2024-05-20 10:58 | disposition home or self-care (01) ==
LOC: HO.HOS 10:33
PROVIDERS: PCP Internal Medicine
DX: S82.141A Displaced bicondylar fracture of right tibia, initial encounter for closed fracture (principal)
CPT/HCPCS: 99213

== ENCOUNTER 2024-05-25 07:38 | Outpatient (REF) | payer MEDICARE, SELFPAY ==
[2024-04-11 12:00] VITALS: BP 128/72; BP 142/80; BP 144/74; BMI 25.4
[2024-05-25 08:34] LABS: Alanine Aminotransferase 15 U/L (0-40); Albumin Level 4.1 g/dL (3.5-5.0); Alkaline Phosphatase 100 U/L (39-117); Anion Gap 11 (12-20); Aspartate Amino Transferase 14 U/L (5-37); Bilirubin Total 0.5 mg/dL (0.0-1.0); Blood Urea Nitrogen 11 mg/dL (9-16); Calcium 9.8 mg/dL (8.4-10.2); Carbon Dioxide 30 mmol/L (22-29); Chloride 107 mmol/L (96-108); Cholesterol 278 mg/dL (<200); Estimated Glomerular Filt Rate > 60; Glucose Fasting 114 mg/dL (60-99); HDL Cholesterol 60 mg/dL (>40); LDL Cholesterol Calculated 202 mg/dL (<100); Potassium 3.9 mmol/L (3.3-5.1); Sodium 144 mmol/L (135-145); Total Protein 7.1 g/dL (6.5-8.0); Triglycerides 80 mg/dL (<150)
== END 2024-05-25 07:39 | disposition home or self-care (01) ==
LOC: HO.LAB 07:38
PROVIDERS: PCP Internal Medicine; Visit Provider Internal Medicine
DX: E78.00 Pure hypercholesterolemia, unspecified (principal)
CPT/HCPCS: 36415; 80053; 80061

== ENCOUNTER 2024-05-25 15:06 | Outpatient (AMB) | payer MEDICARE, SELFPAY ==
[2024-04-11 12:00] VITALS: BP 128/72; BP 142/80; BP 144/74; BMI 25.4
--- NOTE | 2024-05-25 15:07 | MHC.PC.OV ---
Vital Signs 05/25/24 15:08 Height 5 ft 9 in Weight 164 lb BMI 24.2 BP 122/70 Blood Pressure Location Lt brachial Position Sitting Pulse 67 Pulse Source Pulse Oximeter Pulse Oximetry (%) 97 Oxygen Delivery Method Room Air Intake Visit Reasons: follow up Health Consultant Required: No Accompanied by: Self / Same As Patient Allergies No Known Allergies Allergy (Verified 05/25/24 15:57) Medication List - Last Reconciled 05/25/24 by Gage Cha MD aspirin 81 mg PO DAILY atorvastatin 80 mg PO DAILY 90 days piemwmuxac-bgpxtegf-uvpnfknysn 160-9-4.8 mcg/actuation (Breztri Aerosphere) 2 inhalations inhalation BID 30 days ezetimibe 10 mg PO DAILY 90 days hydrochlorothiazide 25 mg PO DAILY 90 days hydrocortisone 2.5% topical hydroxyzine HCl 25 mg PO DAILY PRN ketorolac 10 mg PO TID PRN 5 days losartan 50 mg PO DAILY morphine 15 mg PO Q6H PRN 5 days triamcinolone acetonide 0.1% 1 appl topical BID Tobacco use date assessed: 05/25/24 Dental Screening Dental Screen Date: 05/25/24 Did you have a dental visit in the last 12 months?: Yes Did you have a dental problem in the last 6 months where you did not have access to dental care?: No Was dental information given to patient?: Patient has dentist HPI follow up HPI Details Patient comes in today for his follow up visit States that he fell on his knee a few weeks ago on 04/07/2024 and he sustained a minimally displaced posteromedial tibial plateau fracture in his right knee Orthopedics was consulted and they recommend placing patient in a knee immobilizer and have him use crutches to walk as he has been advised on no weight-bearing on his knee until further notice He was seen by orthopedics for an outpatient follow up a few days later and was recommended to continue conservative management States that his knee pain has improved a lot over the past month and he is now going to physical therapy for his knee, which he feels is helping He is requesting to be started back on Gabapentin to help with his knee pain, especially at night, to allow him to get some sleep States that he feels okay otherwise He denies any headaches or dizziness Denies any chest pains, no increased SOB No nausea/vomiting, no abdominal pain No change in bowel habits noted He had his follow up labs done earlier this morning - to discuss his results He adds that he thinks he is now due for his repeat colonoscopy and is requesting for a referral to get this done [facility] Medical History Chronic cough Chronic rhinitis Asthma Vitamin D deficiency Encounter for screening for malignant neoplasm of prostate COVID-19 vaccine series completed Left ankle pain Left foot pain Coronary artery disease Overweight (BMI 25.0-29.9) Seborrheic dermatitis of scalp Cervical disc disease Cardiac murmur Lumbar degenerative disc disease Pure hypercholesterolemia Benign essential hypertension Obstructive sleep apnea Diarrhea Anorexia Nausea Abdominal pain Surgical History History of cardiac cath Hx of colonoscopy History of esophagogastroduodenoscopy (EGD) History of heart artery stent History of fusion of cervical spine S/P rotator cuff surgery Family History Father Hypertension Mother Hypertension Social History Housing: House Alcohol intake: current Alcohol intake frequency: a few times a week Alcohol type: beer Patient Tobacco Use Status: Never used Tobacco e-Cigarette/Vaping Use: Never Used Second Hand Smoke Exposure: Yes Substance Use Type: Marijuana service: Yes ([email or web address]) Current occupational status: disabled 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 1. Little interest or pleasure in doing things: several days 2. Feeling down, depressed, or hopeless: several days 3. Trouble falling or staying asleep, or sleeping too much: more than half the days 4. Feeling tired or having little energy: more than half the days 5. Poor appetite or overeating: more than half the days 6. Feeling bad about yourself - or that you are a failure or have let yourself or your family down: not at all 7. Trouble concentrating on things, such as reading the newspaper or watching television: more than half the days 8. Moving or speaking so slowly that other people could have noticed. Or the opposite - being so fidgety or restless that you have been moving around a lot more than usual: not at all 9. Thoughts that you would be better off or of hurting yourself in some way: not at all Total score: 10 Depression Screening Interpretation: Positive Depression Screening Follow-up: Declines treatment Depression Screening Done: Yes 31716 - PHQ-9 Billing: Yes Source: Developed by Drs. Brody Pat, Brenda Sutton, Patrice Osorio and colleagues, with an educational nayana from [employer]. Thrive Questionnaire Date Thrive assessed: 05/25/24 I am a: Patient What is your living situation today?: I have a steady place to live Within the past 12 months, did the food you bought not last and you didn't have the money to get more?: Never true Within the past 12 months, did you worry whether your food would run out before you got money to buy more?: Never true Do you have trouble paying for medicines?: No Do you have trouble getting transportation to medical appointments?: No Do you have trouble paying your heating and electricity bill?: No Do you have trouble taking care of your child, family member or friend?: No Do you have trouble with day-to-day activities such as bathing, preparing meals, shopping, managing finances, etc.?: No Are you currently unemployed and looking for a job?: No Are you interested in more education?: No Please select the resources that you would like help with: None Currently or been in a relationship where the following occur: No concerns reported THRIVE Score: 0 AUDIT C Alcohol Use Questionnaire (AUDIT-C) 1. How often do you have a drink containing alcohol?: 2-3 times a week 2. How many drinks containing alcohol do you have on a typical day when you are drinking?: 1 or 2 3. How often do you have six or more drinks on one occasion?: Never Total Score: 3 Score Reviewed/Action Taken: Yes LAWRENCE-7 AMB Questionnaire LAWRENCE-7 Date LAWRENCE - 7 assessed: 05/25/24 Feeling nervous, anxious, or on edge: 2 = More than half the days Not being able to stop or control worryin = Several days Worrying too much about different things: 0 = Not at all Trouble relaxin = Several days Being so restless that it is hard to sit still: 0 = Not at all Becoming easily annoyed or irritable: 0 = Not at all Feeling afraid as if something awful might happen: 2 = More than half the days Total LAWRENCE-7 score (0-4 normal; 5-9 mild; 10-14 moderate; 15-21 severe): 6 Source: Developed by Drs. Brody Pat, Brenda Sutton, Patrice Osorio and colleagues, with an educational nayana from [employer]. Review of Systems Const Denies fatigue, Denies fever(s) and Denies headache(s) ENT Denies dysphagia, Denies dizziness, Denies headache(s), Denies neck pain, Denies odynophagia and Denies sore throat Card Denies chest pain, Denies rapid heart rate, Denies irregular heart rhythm, Denies palpitations and Reports dyspnea on exertion (at times, mild) Resp Denies chest congestion, Reports cough (on and off, non-productive), Reports dyspnea on exertion (at times, mild) and Denies wheezing GI Denies abdominal pain, Denies constipation, Denies dysphagia, Denies heartburn, Denies diarrhea, Denies nausea, Denies odynophagia and Denies vomiting Denies difficulty urinating, Denies dysuria and Denies urinary frequency Musc Reports back pain (over his left lower back ), Reports arthralgias (right knee), Reports joint swelling (minimal, in the right knee) and Denies neck pain Skin/Breast Denies rash Neuro Denies dizziness, Denies headache(s), Reports memory loss (more of poor memory recall) and Denies paresthesias Psych Reports memory loss (more of poor memory recall) Endo Denies fatigue and Denies palpitations Aller/Immun Denies wheezing Physical exam (Primary Care) Vital Signs: Last Vital Signs Pulse 67 05/25/24 15:08 BP 122/70 05/25/24 15:08 Pulse Ox 97 05/25/24 15:08 Oxygen Delivery Method Room Air 05/25/24 15:08 BMI result Body Mass Index 24.2 Tobacco/Smoking Status: Tobacco use Status Tobacco use date assessed 05/25/24 05/25/24 15:09 Patient Tobacco Use Status Never used Tobacco 05/25/24 15:09 e-Cigarette/Vaping Use Never Used 05/25/24 15:09 PHQ-9: PHQ-9 Score PHQ-9: Total score 10 05/25/24 15:58 Depression Screening Interpretation: Positive Depression Screening Follow-up: Declines treatment Thrive Assessment: Date of Thrive Assessment Date Thrive assessed 05/25/24 05/25/24 15:09 Currently or been in a relationship where the following occur: No concerns reported Const General: no acute distress and alert HENMT Ears: TM's normal bilaterally and EAC's normal Throat: Yes posterior oropharynx normal and Yes tonsils normal (no TP congestion) Neck Neck: Yes no lymphadenopathy and Yes supple Thyroid: Thyroid normal Resp Auscultation: clear to auscultation bilaterally, no rales and no wheezes Cardio Rate: regular rate Rhythm: regular rhythm Heart sounds: no murmurs GI Palpation (GI): Soft to palpation and nontender Auscultation: normal bowel sounds General: Yes no CVA tenderness Back/Spine/Pelvis Back: no CVA tenderness Thoracic/Lumbar Spine: paraspinal muscle tenderness on the left in the mid lumbar and in the lower lumbar, lumbar spinal tenderness and straight leg raise positive Skin Rashes: no rashes Extrem General: Yes no clubbing, cyanosis or edema Right lower extremity: knee Details: tenderness and swelling (minimal) Left lower extremity: foot Details: tenderness Location: of the great toe Location: at the MTP joint Results Reviewed Results Reviewed: Laboratory Tests 05/25/24 07:46 Sodium 144 Potassium 3.9 Creatinine 1.08 Estimated GFR > 60 Fasting Glucose 114 H Calcium 9.8 AST 14 ALT 15 Triglycerides 80 Cholesterol 278 H LDL Cholesterol, Calc 202 H HDL Cholesterol 60 Assessment and Plan Assessment & Plan (1) Coronary artery disease: Code(s): I25.10 - Atherosclerotic heart disease of [place] coronary artery without angina pectoris Qualifiers: Associated angina: without angina Coronary Disease-Associated Artery/Lesion type: [place] artery Three Affiliated vs. transplanted heart: [place] heart Qualified Code(s): I25.10 - Atherosclerotic heart disease of [place] coronary artery without angina pectoris Plan: Cardiac work ups done so far have been negative, including an extended Holter monitor that showed baseline rhythm of sinus; stress testing in mid 2020 came out mostly normal except for mild to moderate intensity inferolateral and lateral ischemia in the circumflex territory Continue Aspirin 81 mg QD Repeat EKG done in the offfice back in September 2022 revealed (+) sinus rhythm, with marked LAD, LAFB with no acute ST-T wave changes noted Follow up with cardiology as scheduled (2) Pure hypercholesterolemia: Code(s): E78.00 - Pure hypercholesterolemia, unspecified Plan: Results of his labs done earlier today reviewed and discussed with patient - patient is advised that his cholesterol numbers have improved only slightly from previous but are still high Reinforced low cholesterol diet Continue Atorvastatin 80 mg QD and Ezetimibe 10 mg QD - patient admits to poor compliance with his cholesterol meds lately - states that he sometimes forgets to take his medication(s) but will try to improve on this He was also supposed to be on Fenofibrate 145 mg QD but it looks like he stopped taking this a while ago (not sure why) Will recheck his labs and fasting lipids in 4 months for follow up (3) Benign essential hypertension: Code(s): I10 - Essential (primary) hypertension Plan: Reinforced low sodium diet - goal is systolic BP of 120 mm or less Continue Losartan 50 mg QD and HCTZ 25 mg QD (4) Obstructive sleep apnea: Code(s): G47.33 - Obstructive sleep apnea (adult) (pediatric) Plan: He has been using a CPAP device when he sleeps at night and recalls feeling a lot better since going back on it Follow up with pulmonary and with sleep medicine as scheduled (5) Asthma: Code(s): J45.909 - Unspecified asthma, uncomplicated Qualifiers: Asthma complication type: uncomplicated Asthma persistence: persistent Asthma severity: moderate Qualified Code(s): J45.40 - Moderate persistent asthma, uncomplicated Plan: Continue Breztri Aerosphere 160-9-4.8 mcg 2 inhalations BID - he was switched over to this by pulmonary a few months ago as he could not afford the co-pay for his previous Symbicort inhaler Continue Albuterol HFA 2 inhalations Q 6 hours PRN Follow up with pulmonary as scheduled (6) Low back pain: Code(s): M54.50 - Low back pain, unspecified Qualifiers: Back pain laterality: unspecified Chronicity: unspecified Sciatica presence: without sciatica Qualified Code(s): M54.50 - Low back pain, unspecified Plan: Reinforced activity and weight-lifting restrictions Lumbar spine x-rays done a few months ago revealed (+) minimal degenerative changes of the lower lumbar spine. No compression deformity noted States that he has been using a back brace that he bought on [employer] when needed - felt that the brace was helping before but not recently He was on Gabapentin 300 mg Q HS previously but his Rx ran out He will be started back on this per his request but this is to help more for his knee at this time We tried sending patient for an MRI of the lumbar spine for further evaluation but this was denied by his insurance (7) Tibial plateau fracture, right: Code(s): S82.141A - Displaced bicondylar fracture of right tibia, initial encounter for closed fracture Qualifiers: Encounter type: sequela Fracture type: closed Qualified Code(s): S82.141S - Displaced bicondylar fracture of right tibia, sequela Plan: Patient sustained his injury when he fell on his knee back on 04/07/2024 He was seen by orthopedics and was recommended conservative management with no surgery needed He is currently going to physical therapy for his knee - to continue with PT as scheduled Follow up with orthopedics as scheduled (8) Memory impairment: Code(s): R41.3 - Other amnesia Plan: Patient scored 24 out of 30 on a MOCA test done here in the office a few months ago - is again reassured that a score of 21 or more is considered acceptable and that his recent memory issues appear to be more of short-term memory recall; his cognition and mental capacity are otherwise grossly normal Advised that his mood disorder may be contributing to this and if his mood disorder is addressed better, this may help with his memory and cognition (9) Mood disorder: Code(s): F39 - Unspecified mood [affective] disorder Plan: Patient appears clinically depressed, based on his PHQ-9 questionnaire, but he still declines any Rx at this time (10) Colon cancer screening: Code(s): Z12.11 - Encounter for screening for malignant neoplasm of colon Plan: Will refer him back to Dr. Valadez for repeat colonoscopy (3 yr recall) Plan Follow up in 4 months Orders: Orders Comprehensive [place]. Panel Fast 4 Months E78.00 - Pure hypercholesterolemia, unspecified Lipid Panel 4 Months E78.00 - Pure hypercholesterolemia, unspecified Complete Blood Count Auto Diff 4 Months D64.9 - Anemia, unspecified Hemoglobin A1c 4 Months E11.9 - Type 2 diabetes mellitus without complications UA CC w/rflx Micro + Cult 4 Months R30.0 - Dysuria TSH reflex Free T4 4 Months E78.00 - Pure hypercholesterolemia, unspecified Referrals Gastroenterology Referral Z12.11 - Encounter for screening for malignant neoplasm of colon Medications: Refilled gabapentin 300 mg PO BEDTIME PRN 30 caps 2RF pain Coding Level of Care Code Est Pt Level 4 (84937) Complex EM visit Add On G2211 Diagnoses Coronary artery disease involving [place] coronary artery of [place] heart without angina pectoris I25.10 Associated angina: without angina Coronary Disease-Associated Artery/Lesion type: [place] artery Three Aff[place] vs. transplanted heart: [place] heart Pure hypercholesterolemia E78.00 Benign essential hypertension I10 Obstructive sleep apnea G47.33 Moderate persistent asthma without complication J45.40 Asthma complication type: uncomplicated Asthma persistence: persistent Asthma severity: moderate Low back pain without sciatica, unspecified back pain laterality, unspecified chronicity M54.50 Back pain laterality: unspecified Chronicity: unspecified Sciatica presence: without sciatica Closed fracture of right tibial plateau, sequela S82.141S Encounter type: sequela Fracture type: closed Memory impairment R41.3 Mood disorder F39 Colon cancer screening Z12.11
[2024-05-25 15:08] VITALS: BP 122/70; PULSE 67; O2SAT 97; BMI 24.2
== END 2024-05-25 16:10 | disposition home or self-care (01) ==
PROVIDERS: PCP Internal Medicine; Visit Provider Internal Medicine
DX: I25.10 Atherosclerotic heart disease of native coronary artery without angina pectoris (principal); E78.00 Pure hypercholesterolemia, unspecified; I10 Essential (primary) hypertension; F39 Unspecified mood [affective] disorder; G47.33 Obstructive sleep apnea (adult) (pediatric); J45.40 Moderate persistent asthma, uncomplicated; M54.50 Low back pain, unspecified; S82.141S Displaced bicondylar fracture of right tibia, sequela; R41.3 Other amnesia; Z12.11 Encounter for screening for malignant neoplasm of colon
CPT/HCPCS: 99214; G2211

== ENCOUNTER 2024-05-27 11:00 | Outpatient (RCR) | payer MEDICARE, SELFPAY ==
[2024-04-11 12:00] VITALS: BP 128/72; BP 142/80; BP 144/74; BMI 25.4
--- NOTE | 2024-04-21 14:05 | MHC.PT.EP ---
[facility] [place] Office [place] Office [place] Office [address] Alan Calderon [address] [phone] F: [phone] F: [phone] F: [phone] F: [phone] Physical Therapy Plan of Care Date of Evaluation: 04/21/24 Date of Surgery: Diagnosis: DISPLACED BICONDYLAR FX Lt TIBIA-> PT FOR GENTLE ROM AND STRENGTHENING, ABSOLUTELY NO WEIGHT BEARING ON RIGHT LE Assessment: 58 YO MALE REF TO PT W H/O FALL ON STAIRS ON 04/07/24 AND (+) Rt DISPLACED BICONDYLAR FX Lt TIBIA . HE HAS BEEN NWB Rt LE SINCE INJURY AND WAS INIT PLACED IN AN IMMOB IN THE ER, PER Pt, AT ORTHO F/U 04/11/24 THE Pt STATES HE WAS TOLD HE COULD D/C THE IMMOB AND HE WAS REF TO PT FOR ROM AND STRENGTHENING. HE RESIDES W HIS AND HAS BEEN ON DISABILITY FOR OTHER MEDICAL CONDITIONS. HE HAS DECR ROM Rt LE, ALTERED GAIT/ NWB Rt LE, PAIN, AND (+) STRENGTH DEFICITS. ALL OF HIS ADLs AND FUNCT INDEPENDENCE HAVE BEEN IMPACTED . HE IS A GOOD PT CANDIDTAE TO ADDRESS THE ABOVE W RESPECT TO NWB Rt STATUS, THE Pt IS IN AGREEMENT W PT POC AT THIS TIME. Frequency and Duration: The patient will be seen 2 x WK x 8 WKS Short Term Goals: *DECREASE PAIN IN Rt KNEE/PROX TIBIA *IMPROVE Rt KNEE ROM, ESPEC TERMINAL KNEE EXT NWB Rt LE *INITIATE HEP, NWB Rt LE *ONCE Pt CLEARED BY ORTHO FOR WT BEARING, ADDRESS GAIT/ WT BEARING W FUNCT TASKS *MONITOR Rt PATELLAR MOBILITY Senior Care Goals: *INDEP HEP AND SELF-SX MGMT TECHN *Pt DEMON EFFICIENT GAIT MECH ON LEVEL GROUND/ STAIRS *Pt RESUME ADLs TO MAX POTENTIAL-> DOG WALKING, IPROVED LEFI SCORE (AT EVAL 3) *Pt'S Rt LE/ LUMBOPELVIC STRENGTH IMPROVED BY AT LEAST 1 GRADE Treatment Plan: Modalities to reduce pain, spasms and effusion. Manual therapy to restore motion and function. Therapeutic exercise to improve strength and flexibility. Neuromuscular re-education for posture and balance. Therapeutic activities to return to functional activities of daily living. Electronically signed by: GAMA HUMPHRIES PT Please sign and return to therapist. Thank you for your referral.
--- NOTE | 2024-09-02 07:47 | MHC.PT.DC ---
[facility] [place] Office [place] Office [place] Office [address] Alan Calderon [address] [phone] F: [phone] F: [phone] F: [phone] F: [phone] Physical Therapy Discharge Report Diagnosis: DISPLACED BICONDYLAR FX Lt TIBIA-> PT FOR GENTLE ROM AND STRENGTHENING, ABSOLUTELY NO WEIGHT BEARING ON RIGHT LE Date of Surgery: Date of Evaluation: 04/21/24 Date of Discharge: 09/02/24 Treatments to Date: 8 Cancellations to Date: 5 No Shows to Date: 3 Discharge Status: Patient Elected to Stop Visit Non-compliance Discharge Summary: YANETH WAS LAST TREATED IN PT ON 05/27/24- HE HAD DECR ATTENDANCE FOR SCHED PT APPTS NOTED ABOVE- THE Pt HAS A HEP AND WE HAVE CONSISTENTLY EDUC HIM RE PRECAUTIONS IN REGARDS TO HIS FRACTURE AND NON-WT BEARING Lt LE. AT LAST APPT, THE Pt WAS CHALLENGED WITH HIS HIP STABILITY EXERCISES- HE DENIED PAIN AND DISPLAYED INCR RIGHT KNEE FLEX. HE IS DISCHARGED AT THIS TIME PER DEPT ATTENDANCE POLICY. Electronically signed by: GAMA HUMPHRIES,PT Please sign and return to therapist. Thank you for your referral.
== END 2024-09-02 07:47 | disposition home or self-care (01) ==
LOC: HO.PT 11:00
PROVIDERS: PCP Internal Medicine
DX: S82.141D Displaced bicondylar fracture of right tibia, subsequent encounter for closed fracture with routine healing (principal); S82.142D Displaced bicondylar fracture of left tibia, subsequent encounter for closed fracture with routine healing
CPT/HCPCS: 97110; 97112; 97162; 97535

== ENCOUNTER 2024-06-10 10:11 | Outpatient (AMB) | payer MEDICARE, SELFPAY ==
[2024-04-11 12:00] VITALS: BP 128/72; BP 142/80; BP 144/74; BMI 25.4
--- NOTE | 2024-06-10 10:19 | MHC.OFFVIS ---
Vital Signs 06/10/24 10:20 Height 5 ft 9 in Weight 160 lb BMI 23.6 BP 144/78 H Blood Pressure Location Rt brachial Position Sitting Pulse 70 Pulse Source Pulse Oximeter Pulse Oximetry (%) 100 Oxygen Delivery Method Room Air Intake Visit Reasons: Asthma Jig Borer Required: No Allergies No Known Allergies Allergy (Verified 06/10/24 10:20) HPI Comments Details: The patient is a 58-year-old gentleman presenting with chronic cough. Cough is moderate severity. Typically nonproductive in nature. It occurs in the dependent of the time were position. Denies any significant a reflux disease. Denies any heartburns. Does have nasal congestion and does have a component of allergies. The patient also has been noticing some increasing shortness of breath primarily with activity. Mild in severity. During the office visit we did go for brief walking oximetry. The patient did get winded after going up a couple stairs. However, his oxygen was reassuring and his heart rate also was slightly elevated in the low 100s. Once the patient's that down her recover. There may be a component of deconditioning as well. Patient is aware of this. In the meantime he also underwent pulmonary function studies which we personally reviewed. His lung capacity is excellent. 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 the patient does does report some intermittent chest tightness and shortness of breath. He may have a component of exercise-induced asthma. Would be reasonable to treat him. Patient also will have allergy testing to address the question of his chronic rhinitis also contributing to his symptoms. 10/14/2022 the patient is here for pulmonary follow-up visit. He continues to be about the same. Still complaining about shortness of breath [id number] severity. Still having episodes of coughing. He could not get the Advair because it was too expensive. The patient does to continue to use his rescue inhaler a couple times a week. Therefore, I will go ahead and try a different combination inhaler, Symbicort. If this continues to be expensive for him then he can consider using a good Rx card in getting a combination inhaler which would be potentially significantly less. In the meantime he continues uses CPAP. although, he has not been able to get supplies from his current DME company. He did call his insurance company and they recommended that he seek out a different DME company, [employer]. I will send a prescription to [employer] for CPAP supplies. However, if there are any ongoing issues with his current DME company he is on likely to get CPAP supplies from the new company. 06/10/2023 the patient is here for a pulmonary follow-up visit. The patient recently developed a cold and had worsening respiratory symptoms. Complaint of wheezing and chest tightness. Unfortunately, he has not been able to afford any inhalers. The last 1 we sent the still expensive therefore he does not have any medications right now. The patient does not have a nebulizer either. I do have a free trial for an inhaler which I will provide him in order for him to get a month supply and hopefully be able to use it and improve his overall respiratory status. The patient should also have a rescue inhaler available. Also, the patient has not been using his CPAP. Unfortunately he also bill and he can not get supplies until he takes care that Bill through his DME company very he is sleeping on his side maintaining positional therapy. Denies any significant daytime drowsiness. His Tyro score is 7/24. Therefore he will continue with positional therapy and will start the new inhaler. 12/08/2023 the patient is here for a pulmonary follow-up visit. He continues have shortness of breath with activity. He does sleep upstairs and he goes up 2 flights of stairs when she gets to the top he is very short of breath winded and also with palpitations. Moderate severity. Does get better with rest. He has been on maximum respiratory therapy with adequate response. The patient also continues uses CPAP. The CPAP therapy continues to be affecting beneficial. He does use it for more than 4 hours a night. He does not have any significant daytime drowsiness. Will go ahead and request a download from his DME company to make sure. We did again go up a flight of stairs while in office and I did check his oxygen and pulse. Initially he was doing okay and then he quickly jumped from about 80 beats per minute to about 120 very quickly then he became short of breath. Therefore I do believe that this more cardiovascular issue. 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 06/10/2024 the patient is here for a pulmonary follow-up visit the patient overall status. He does have his respiratory inhalers available he does use it as needed which start believe at this point this okay. He has not required any prednisone or any nebulized therapy which is reassuring. In addition to that he continues uses CPAP every night. The CPAP therapy continues to be affecting beneficial. He does get supplies from his [employer] company regularly. We did request access to his machine but does not seem to be giving any additional reports this time. The latest report is from March 2024. Seems like the machine is working just fine for him. If he has any issues will call should see if I can get access or download that may be a more updated. 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 He is currently working with orthopedic surgery in uses crutches. Otherwise no complications from that issue. He did not need surgery. [facility] Medical History Chronic cough Chronic rhinitis Asthma Vitamin D deficiency Encounter for screening for malignant neoplasm of prostate COVID-19 vaccine series completed Left ankle pain Left foot pain Coronary artery disease Overweight (BMI 25.0-29.9) Seborrheic dermatitis of scalp Cervical disc disease Cardiac murmur Lumbar degenerative disc disease Pure hypercholesterolemia Benign essential hypertension Obstructive sleep apnea Diarrhea Anorexia Nausea Abdominal pain Surgical History History of cardiac cath Hx of colonoscopy History of esophagogastroduodenoscopy (EGD) History of heart artery stent History of fusion of cervical spine S/P rotator cuff surgery Family History Father Hypertension Mother Hypertension Social History Housing: House Alcohol intake: current Alcohol intake frequency: a few times a week Alcohol type: beer Patient Tobacco Use Status: Never used Tobacco e-Cigarette/Vaping Use: Never Used Second Hand Smoke Exposure: Yes Substance Use Type: Marijuana service: Yes ([employer]) Current occupational status: disabled 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 Cognitive needs: No Hearing needs: No Vision needs: Yes Review of Systems Const Denies daytime sleepiness and Denies fever(s) Eyes Denies change in vision ENT Denies change in voice and Reports nasal congestion Card Denies chest pain Resp Denies chest congestion, Reports cough and Denies wheezing GI Denies dyspepsia and Denies heartburn Musc Reports as per HPI Skin/Breast Denies rash Neuro Reports no additional complaints Endo Denies heat intolerance Krunal/Lymph Denies easy bleeding Aller/Immun Denies wheezing Physical Exam Vital Signs: Last Vital Signs Pulse 70 06/10/24 10:20 BP 144/78 H 06/10/24 10:20 Pulse Ox 100 06/10/24 10:20 Oxygen Delivery Method Room Air 06/10/24 10:20 BMI result Body Mass Index 23.6 Const General: comfortable HEENT Head: Yes atraumatic General nose exam: Abnormal mucous membranes and turbinates present erythematous Eyes General: appearance normal, both eyes and all related structures Neck Neck: Yes supple Chest Chest palpation & inspection: normal inspection of the chest Resp Effort & Inspection: normal respiratory effort and No prolonged expiratory phase Auscultation: clear to auscultation bilaterally and no wheezes Cardio Rate: regular rate Rhythm: regular rhythm Heart sounds: S1 normal heart sound present and S2 normal heart sound present Skin General skin exam: no rashes or lesions noted Extrem General: Yes no clubbing, cyanosis or edema Assessment & Plan Assessment & Plan (1) Asthma: Code(s): J45.909 - Unspecified asthma, uncomplicated Category: Medical Qualifiers: Asthma complication type: uncomplicated Asthma persistence: persistent Asthma severity: moderate Qualified Code(s): J45.40 - Moderate persistent asthma, uncomplicated (2) SOB (shortness of breath): Code(s): R06.02 - Shortness of breath Category: Medical (3) Chronic rhinitis: Code(s): J31.0 - Chronic rhinitis Category: Medical (4) Chronic cough: Code(s): R05.3 - Chronic cough Category: Medical (5) Obstructive sleep apnea: Code(s): G47.33 - Obstructive sleep apnea (adult) (pediatric) Category: Medical Plan continue Breztri MYKE as needed continue CPAP , supplies sent to [facility]. Continue exercise regimen F/U 8-12 months Coding Level of Care Code Est Pt Level 4 (85391) Diagnoses Moderate persistent asthma without complication J45.40 Asthma complication type: uncomplicated Asthma persistence: persistent Asthma severity: moderate SOB (shortness of breath) R06.02 Chronic rhinitis J31.0 Chronic cough R05.3 Obstructive sleep apnea G47.33 Time Spent (min) 15
[2024-06-10 10:20] VITALS: BP 144/78; PULSE 70; O2SAT 100; BMI 23.6
== END 2024-06-10 10:34 | disposition home or self-care (01) ==
PROVIDERS: PCP Internal Medicine; Visit Provider Hospitalist
DX: J45.40 Moderate persistent asthma, uncomplicated (principal); R06.02 Shortness of breath; J31.0 Chronic rhinitis; R05.3 Chronic cough; G47.33 Obstructive sleep apnea (adult) (pediatric)
CPT/HCPCS: 99214

== ENCOUNTER → 2024-06-10 10:11 | Outpatient (BNVA) | payer MEDICARE, SELFPAY ==
[2024-04-11 12:00] VITALS: BP 128/72; BP 142/80; BP 144/74; BMI 25.4
== END ==
PROVIDERS: PCP Internal Medicine; Visit Provider Hospitalist
DX: J45.40 Moderate persistent asthma, uncomplicated (principal); J31.0 Chronic rhinitis; R06.02 Shortness of breath; R05.3 Chronic cough; G47.33 Obstructive sleep apnea (adult) (pediatric)
CPT/HCPCS: 99212

== ENCOUNTER 2024-07-04 08:27 | Outpatient (REF) | payer MEDICARE, SELFPAY ==
[2024-04-11 12:00] VITALS: BP 128/72; BP 142/80; BP 144/74; BMI 25.4
--- NOTE | ~2024-07-04 | XR_ITS ---
EXAMINATION: XR KNEE, RIGHT CLINICAL INFORMATION: Unilateral primary osteoarthritis COMPARISON: Multiple prior examinations including the most recent x-ray 05/20/[address] scan of the right knee March 2024 TECHNIQUE: Four views of the right knee. FINDINGS: Tibial plateau fracture involving the posterior aspect of the medial plateau redemonstrated. Unchanged alignment. Fracture line slightly less conspicuous suggestive minimal/mild incomplete fracture healing. Remaining bones and joints unremarkable. There is a moderate joint effusion. XR/XR knee RT 3V IMPRESSION: 1. Stable alignment of the tibial plateau fracture. Fairly prominent residual lucency indicative of perhaps mild/minimal incomplete fracture healing 2. Moderate joint effusion. Electronically signed by: Martín Urbina MD 07/08/2024 10:08 PM EDT
== END 2024-07-04 08:28 | disposition home or self-care (01) ==
LOC: HO.HOSX 08:27
DX: S82.141S Displaced bicondylar fracture of right tibia, sequela (principal); M25.461 Effusion, right knee
CPT/HCPCS: 73562; 99212

== ENCOUNTER 2024-07-04 09:55 | Outpatient (AMB) | payer MEDICARE, SELFPAY ==
[2024-04-11 12:00] VITALS: BP 128/72; BP 142/80; BP 144/74; BMI 25.4
--- NOTE | 2024-07-04 10:17 | MHC.OFFVIS ---
Intake Visit Reasons: OV- RT tibial fx follow up Intake Note: Melissa is a 58 year old male who presents today for a follow up visit of his right tibial plateau fracture s/p fall DOI: 04/07/2024. XR updated today in office. Presents PWB on crutches. Patient reports that he is slowly improving, he has been doing exercises at home. Would like to know when he may return to full weight bearing. Allergies No Known Allergies Allergy (Verified 06/10/24 10:20) HPI HPI OV- RT tibial fx follow up: Details: Melissa is a 58 year old male who presents today for a follow up visit of his right tibial plateau fracture s/p fall DOI: 04/07/2024. XR updated today in office. Presents PWB on crutches. Patient reports that he is slowly improving, he has been doing exercises at home. Would like to know when he may return to full weight bearing. Patient states that he was discharged from physical therapy a few weeks ago, and has been doing the home exercises which he feels have improved his range of motion. [facility] Medical History Chronic cough Chronic rhinitis Asthma Vitamin D deficiency Encounter for screening for malignant neoplasm of prostate COVID-19 vaccine series completed Left ankle pain Left foot pain Coronary artery disease Overweight (BMI 25.0-29.9) Seborrheic dermatitis of scalp Cervical disc disease Cardiac murmur Lumbar degenerative disc disease Pure hypercholesterolemia Benign essential hypertension Obstructive sleep apnea Diarrhea Anorexia Nausea Abdominal pain Surgical History History of cardiac cath Hx of colonoscopy History of esophagogastroduodenoscopy (EGD) History of heart artery stent History of fusion of cervical spine S/P rotator cuff surgery Family History Father Hypertension Mother Hypertension Social History Housing: House Alcohol intake: current Alcohol intake frequency: a few times a week Alcohol type: beer Patient Tobacco Use Status: Never used Tobacco e-Cigarette/Vaping Use: Never Used Second Hand Smoke Exposure: Yes Substance Use Type: Marijuana service: Yes ([employer]) Current occupational status: disabled 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 Patient is able to extend the left knee to 0 degrees and flex to approximately 110 degrees without difficulty Distal sensation intact Capillary refill brisk Results Reviewed Results Reviewed: X-rays obtained in the office today and independently reviewed by me, Remigio Wood PA-C, demonstrate minimally displaced posterior tibial plateau fracture of the right knee with evidence of interval bone healing. Assessment & Plan Assessment & Plan (1) Tibial plateau fracture, right: Code(s): S82.141A - Displaced bicondylar fracture of right tibia, initial encounter for closed fracture Category: Medical Qualifiers: Encounter type: sequela Fracture type: closed Qualified Code(s): S82.141S - Displaced bicondylar fracture of right tibia, sequela Plan 1. Right knee tibial plateau fracture Date of injury 04/07/2024 Patient appears to be recovering well from his injury Patient is educated about the typical recovery course At this time, patient is informed that he can weight bear as tolerated Patient is educated that if he begins to experience increasing pain, swelling, redness, or other worrisome symptoms, he should cease weight-bearing and call our office to be re-evaluated Patient is amenable to this plan Patient is also provided with a knee brace for added stability Patient also inquires it be okay if he used a cane for the 1st couple of weeks, and is advised that this is totally fine Patient will follow-up in 4-5 weeks with repeat x-rays for reassessment, sooner with any acute concerns Orders: Orders XR knee RT 3V Today M17.11 - Unilateral primary osteoarthritis, right knee Coding Level of Care Code Global (33795) Diagnoses Closed fracture of right tibial plateau, sequela S82.141S Encounter type: sequela Fracture type: closed
== END 2024-07-04 10:39 | disposition home or self-care (01) ==
PROVIDERS: PCP Internal Medicine
DX: S82.141D Displaced bicondylar fracture of right tibia, subsequent encounter for closed fracture with routine healing (principal)
CPT/HCPCS: 99213

== ENCOUNTER 2024-08-01 09:06 | Outpatient (AMB) | payer MEDICARE, SELFPAY ==
[2024-04-11 12:00] VITALS: BP 128/72; BP 142/80; BP 144/74; BMI 25.4
--- NOTE | 2024-08-01 09:09 | A.OFFVIS_ITS ---
Vital Signs 08/01/24 09:11 Height 5 ft 9 in Weight 160 lb BMI 23.6 Intake Visit Reasons: OV- RT tibial fx follow up Intake Note: Melissa is a 58 year old male who presents today utilizing a cane for a follow up visit of his right tibial plateau fracture s/p fall DOI: 04/07/2024. Patient reports he has pain with ambulation. Reports certain moves or pivots aggravate his right knee. He states his knee brace helps him and provides stability. IF he does not wear his brace and moves or pivots incorrectly his right knee gets aggravated. Allergies No Known Allergies Allergy (Verified 08/01/24 09:11) HPI HPI OV- RT tibial fx follow up: Details: Patient is a 58-year-old male presents for follow-up evaluation of right tibial plateau fracture, date of injury 04/07/2024. Today, patient reports that his pain has continued to improve, but he does still experience discomfort, particularly if he attempts a fast stop or a twisting motion on his right knee. Patient reports that he has been weight-bearing since previous evaluation, but does wear his knee brace most of the time as he feels it gives him more stability. No other acute complaints or concerns at this time. [facility] Medical History Chronic cough Chronic rhinitis Asthma Vitamin D deficiency Encounter for screening for malignant neoplasm of prostate COVID-19 vaccine series completed Left ankle pain Left foot pain Coronary artery disease Overweight (BMI 25.0-29.9) Seborrheic dermatitis of scalp Cervical disc disease Cardiac murmur Lumbar degenerative disc disease Pure hypercholesterolemia Benign essential hypertension Obstructive sleep apnea Diarrhea Anorexia Nausea Abdominal pain Surgical History History of cardiac cath Hx of colonoscopy History of esophagogastroduodenoscopy (EGD) History of heart artery stent History of fusion of cervical spine S/P rotator cuff surgery Family History Father Hypertension Mother Hypertension Social History Housing: House Alcohol intake: current Alcohol intake frequency: a few times a week Alcohol type: beer Patient Tobacco Use Status: Never used Tobacco e-Cigarette/Vaping Use: Never Used Second Hand Smoke Exposure: Yes Substance Use Type: Marijuana service: Yes ([employer]) Current occupational status: disabled 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 Patient is able to extend the left knee to 0 degrees and flex to approximately 110 degrees without difficulty Distal sensation intact Capillary refill brisk Results Reviewed Results Reviewed: X-rays obtained in the office today and independently reviewed by me, Remigio Wood PA-C, demonstrate minimally displaced posterior tibial plateau fracture of the right knee with evidence of interval bone healing. Assessment & Plan Assessment & Plan (1) Tibial plateau fracture, right: Code(s): S82.141A - Displaced bicondylar fracture of right tibia, initial encounter for closed fracture Category: Medical Qualifiers: Encounter type: sequela Fracture type: closed Qualified Code(s): S82.141S - Displaced bicondylar fracture of right tibia, sequela Plan 1. Right knee tibial plateau fracture Date of injury 04/07/2024 Patient appears to be recovering well from his injury Patient is educated about the typical recovery course At this time, patient is informed that he can continue to weight bear as tolerated Patient is educated that if he begins to experience increasing pain, swelling, redness, or other worrisome symptoms, he should cease weight-bearing and call our office to be re-evaluated Patient is amenable to this plan Patient is also provided with a knee brace for added stability Patient also inquires it be okay if he used a cane for the 1st couple of weeks, and is advised that this is totally fine Patient will follow-up in 6 weeks with repeat x-rays for reassessment, sooner with any acute concerns Orders: Orders XR knee RT 3V Today M17.11 - Unilateral primary osteoarthritis, right knee Coding Level of Care Code Est Pt Level 3 (68253) Diagnoses Closed fracture of right tibial plateau, sequela S82.141S Encounter type: sequela Fracture type: closed
[2024-08-01 09:11] VITALS: BMI 23.6
== END 2024-08-01 09:37 | disposition home or self-care (01) ==
PROVIDERS: PCP Internal Medicine
DX: S82.141D Displaced bicondylar fracture of right tibia, subsequent encounter for closed fracture with routine healing (principal)
CPT/HCPCS: 99213

== ENCOUNTER 2024-08-01 09:06 | Outpatient (REF) | payer MEDICARE, SELFPAY ==
[2024-04-11 12:00] VITALS: BP 128/72; BP 142/80; BP 144/74; BMI 25.4
== END 2024-08-01 09:07 | disposition home or self-care (01) ==
LOC: HO.HOSX 09:06
PROVIDERS: PCP Internal Medicine
DX: S82.141D Displaced bicondylar fracture of right tibia, subsequent encounter for closed fracture with routine healing (principal); M17.11 Unilateral primary osteoarthritis, right knee
CPT/HCPCS: 73562; 99212

== ENCOUNTER 2024-08-24 14:21 | Outpatient (AMB) | payer OTHER, SELFPAY ==
[2024-04-11 12:00] VITALS: BP 128/72; BP 142/80; BP 144/74; BMI 25.4
[2024-08-24 14:23] VITALS: BP 130/72; PULSE 62; O2SAT 98; BMI 24.7
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
== END 2024-08-24 15:05 | disposition home or self-care (01) ==
PROVIDERS: PCP Internal Medicine; Visit Provider Internal Medicine
DX: M25.561 Pain in right knee (principal); M25.512 Pain in left shoulder; V89.2XXA Person injured in unspecified motor-vehicle accident, traffic, initial encounter; Z04.3 Encounter for examination and observation following other accident

== ENCOUNTER 2024-08-24 14:21 | Outpatient (REF) | payer OTHER, MEDICARE, SELFPAY ==
[2024-04-11 12:00] VITALS: BP 128/72; BP 142/80; BP 144/74; BMI 25.4
== END 2024-08-24 14:22 | disposition home or self-care (01) ==
LOC: HO.XRAY 14:21
PROVIDERS: PCP Internal Medicine; Visit Provider Internal Medicine
DX: M25.561 Pain in right knee (principal); M25.512 Pain in left shoulder; V89.2XXD Person injured in unspecified motor-vehicle accident, traffic, subsequent encounter
CPT/HCPCS: 73030; 96127

== ENCOUNTER 2024-09-12 08:51 | Outpatient (REF) | payer OTHER, MEDICARE, SELFPAY ==
[2024-04-11 12:00] VITALS: BP 128/72; BP 142/80; BP 144/74; BMI 25.4
--- NOTE | ~2024-09-12 | XR_ITS ---
CLINICAL HISTORY: M17.11 - Unilateral primary osteoarthritis, right knee Exam: AP, lateral, and sunrise views of the right knee. Comparison: None. Findings: Mixed areas of sclerosis and lucency seen within the mid to posterior aspect of the medial tibial plateau with subtle depression of the articular surface posteriorly. An acute well-defined fracture cleft is not seen. There is a small to moderate-sized knee joint effusion. However, a lipohemarthrosis is not seen. Joint spaces are well preserved. No erosions. Impression: Findings suggest a remote fracture of the mid to posterior aspect of the medial tibial plateau. Clinical correlation with any recent traumatic injury suggested. CT or MRI could further evaluate. This document has been electronically signed by: Glenroy Varela MD on 09/17/2024 06:36:13
== END 2024-09-12 08:52 | disposition home or self-care (01) ==
LOC: HO.HOSX 08:51
DX: M17.11 Unilateral primary osteoarthritis, right knee (principal); S82.141S Displaced bicondylar fracture of right tibia, sequela
CPT/HCPCS: 73562; 99212

== ENCOUNTER 2024-09-12 09:07 | Outpatient (AMB) | payer MEDICARE, SELFPAY ==
[2024-04-11 12:00] VITALS: BP 128/72; BP 142/80; BP 144/74; BMI 25.4
--- NOTE | 2024-09-12 09:21 | A.OFFVIS_ITS ---
Vital Signs 09/12/24 09:27 Height 5 ft 9 in Weight 168 lb BMI 24.8 Intake Visit Reasons: RT tibial fx follow up-w/xrays Intake Note: Melissa is a 58 year old male who presents today utilizing a cane for a follow up visit of his right tibial plateau fracture s/p fall DOI: 04/07/2024. Patient reports his right knee feels terrible. He states it is sore and he thinks it is getting worse, not better. He tried not to use his cane however he needs it for stability. Allergies No Known Allergies Allergy (Verified 09/12/24 09:25) HPI HPI RT tibial fx follow up-w/xrays: Details: Patient is a 58-year-old male presents for follow-up evaluation of right tibial plateau fracture, date of injury 04/07/2024. Today, patient reports that his pain has continued to improve, but he does still experience discomfort, particularly if he attempts a fast stop or a twisting motion on his right knee. Patient reports that he has been weight-bearing since previous evaluation, but does wear his knee brace most of the time as he feels it gives him more stability. Patient states that he has a lot of difficulty with going up and down stairs due to his knee pain No other acute complaints or concerns at this time. [facility] Medical History Chronic cough Chronic rhinitis Asthma Vitamin D deficiency Encounter for screening for malignant neoplasm of prostate COVID-19 vaccine series completed Left ankle pain Left foot pain Coronary artery disease Overweight (BMI 25.0-29.9) Seborrheic dermatitis of scalp Cervical disc disease Cardiac murmur Lumbar degenerative disc disease Pure hypercholesterolemia Benign essential hypertension Obstructive sleep apnea Diarrhea Anorexia Nausea Abdominal pain Surgical History History of cardiac cath Hx of colonoscopy History of esophagogastroduodenoscopy (EGD) History of heart artery stent History of fusion of cervical spine S/P rotator cuff surgery Family History Father Hypertension Mother Hypertension Social History Housing: House Alcohol intake: current Alcohol intake frequency: a few times a week Alcohol type: beer Patient Tobacco Use Status: Never used Tobacco e-Cigarette/Vaping Use: Never Used Second Hand Smoke Exposure: Yes Substance Use Type: Marijuana service: Yes ([employer]) Current occupational status: disabled 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 Assessment & Plan Assessment & Plan (1) Tibial plateau fracture, right: Code(s): S82.141A - Displaced bicondylar fracture of right tibia, initial encounter for closed fracture Category: Medical Qualifiers: Encounter type: sequela Fracture type: closed Qualified Code(s): S82.141S - Displaced bicondylar fracture of right tibia, sequela Plan 1. Right knee tibial plateau fracture Date of injury 04/07/2024 Patient appears to be recovering well from his injury Patient is educated about the typical recovery course At this time, due to the patient's ongoing discomfort, and previous discussions with Dr. Guevara, I feel it was appropriate to refer him to Dr. Guevara for surgical consult for potential right total knee arthroplasty I educated the patient that it may be up to [address] Guevara is able to perform surgery due to his injury, and the patient expresses understanding of this At this time, patient is informed that he can continue to weight bear as tolerated Patient is educated that if he begins to experience increasing pain, swelling, redness, or other worrisome symptoms, he should cease weight-bearing and call our office to be re-evaluated Patient is amenable to this plan Patient is also provided with a knee brace for added stability Patient also inquires it be okay if he used a cane for the 1st couple of weeks, and is advised that this is totally fine Patient will follow-up for next available surgical consult with Dr. Guevara, sooner with any acute concerns Orders: Orders XR knee RT 3V Today M17.11 - Unilateral primary osteoarthritis, right knee Coding Level of Care Code Est Pt Level 3 (07249) Diagnoses Closed fracture of right tibial plateau, sequela S82.141S Encounter type: sequela Fracture type: closed
[2024-09-12 09:27] VITALS: BMI 24.8
== END 2024-09-12 09:48 | disposition home or self-care (01) ==
PROVIDERS: PCP Internal Medicine
DX: S82.141D Displaced bicondylar fracture of right tibia, subsequent encounter for closed fracture with routine healing (principal)
CPT/HCPCS: 99213

== ENCOUNTER → 2024-09-12 09:08 | Outpatient (BNV) | payer MEDICARE, SELFPAY ==
[2024-04-11 12:00] VITALS: BP 128/72; BP 142/80; BP 144/74; BMI 25.4
== END ==
PROVIDERS: Visit Provider Radiology Diagnostic Radiology
DX: M17.11 Unilateral primary osteoarthritis, right knee (principal)
CPT/HCPCS: 73562

== ENCOUNTER 2024-09-26 15:33 | Outpatient (AMB) | payer OTHER, SELFPAY ==
[2024-09-22 11:24] VITALS: BP 128/72; BP 142/80; BP 144/74; BMI 25.4
[2024-09-26 15:35] VITALS: BP 136/80; PULSE 66; O2SAT 98; BMI 25.4
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
== END 2024-09-26 16:24 | disposition home or self-care (01) ==
PROVIDERS: PCP Internal Medicine
DX: M25.512 Pain in left shoulder (principal); S83.241A Other tear of medial meniscus, current injury, right knee, initial encounter; L21.9 Seborrheic dermatitis, unspecified; Z04.3 Encounter for examination and observation following other accident

== ENCOUNTER → 2024-09-26 15:33 | Outpatient (BNVA) | payer OTHER, SELFPAY ==
[2024-09-22 11:24] VITALS: BP 128/72; BP 142/80; BP 144/74; BMI 25.4
== END ==
PROVIDERS: PCP Internal Medicine
DX: M25.512 Pain in left shoulder (principal); S83.241A Other tear of medial meniscus, current injury, right knee, initial encounter; L21.9 Seborrheic dermatitis, unspecified
CPT/HCPCS: 96127

== ENCOUNTER → 2024-10-03 07:03 | Outpatient (BNVA) | payer OTHER, SELFPAY ==
[2024-09-22 11:24] VITALS: BP 128/72; BP 142/80; BP 144/74; BMI 25.4
== END ==
PROVIDERS: PCP Internal Medicine; Visit Provider Internal Medicine Gastroenterology

== ENCOUNTER 2024-10-10 12:08 | Outpatient (AMB) | payer OTHER, SELFPAY ==
[2024-09-22 11:24] VITALS: BP 128/72; BP 142/80; BP 144/74; BMI 25.4
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
--- OUTSIDE RECORDS SUMMARY | 2024-10-10 17:02 | XMS_ITS | Clinical Summary ---
Author Organization [facility] Address [address] [place] [address] Care Team Providers Care Pre Sales Technical Engineer Name Role Phone Unavailable Primary Care Provider Unavailabl e Social History Tobacco Use Types Packs/Day Years Used Date Smoking Tobacco: Never Assessed Sex and Gender Information Value Date Recorded Sex Assigned at Male 12/21/2019 7:33 AM EDT Gender Identity Not on file Sexual Orientation Not on file Plan of Treatment Not on file
--- OUTSIDE RECORDS SUMMARY | 2024-10-10 17:02 | XMS_ITS | Continuity of Care Document ---
Author Organization [facility] Address [address] [place] [address] Insurance Providers Payer Plan Claims Address Claims Phone Policy Number Group Number Relation Employer Guarantor Name Guarantor Guarantor Address Guarantor Phone MEDIC ARE [employer] [address], [place] [address] tel:[phone] Melissa Gallagher [address] [place] [id number] GENER IC MEDIC ARE [employer] [address] [address] [address] tel:[phone] [facility] Melissa Gallagher [address] [place] [address] AARP Medic are Anneliese mcgovern Plan [id number] 35 [facility] Melissa Gallagher [address] [place] [address] Problems Unknown Problems Results No Results Allergies, adverse reactions, alerts No known allergies and adverse reactions Medications Medication Instructions Route Dosage Frequency Start Date Stop Date Indications Status celecoxib 200 MG Oral Capsule 2024 04:32 AM 10/07 04:32 AM Active atorvastatin 80 MG Oral Tablet 2024 04:32 AM 10/07 04:32 AM Active gabapentin 300 MG Oral Capsule 2024 04:32 AM 10/07 04:32 AM Active hydrochlorothiazide 25 MG Oral Tablet 2024 04:32 AM 10/07 04:32 AM Active pantoprazole 40 MG Delayed Release Oral Tablet 2024 04:32 AM 10/07 04:32 AM Active ezetimibe 10 MG Oral Tablet 2024 04:32 AM 10/07 04:32 AM Active ketorolac tromethamine 10 MG Oral Tablet 2024 04:32 AM 10/07 04:32 AM Active morphine sulfate 15 MG Oral Tablet 2024 04:32 AM 10/07 04:32 AM Active losartan potassium 50 MG Oral Tablet 2024 04:32 AM 10/07 04:32 AM Active 120 ACTUAT budesonide 0.16 MG/ACTUAT / formoterol fumarate 0.0048 MG/ACTUAT / glycopyrrolate 0.009 MG/ACTUAT Metered Dose Inhaler [Ruthieztri] 2024 04:32 AM 10/07 04:32 AM Active Vital Signs No vital signs reported Social History No smoking Hx information available
--- OUTSIDE RECORDS SUMMARY | 2024-10-10 17:02 | XMS_ITS | Clinical Summary ---
Author Organization [facility] Address [address] [place] [address] Care Team Providers Care Commercial Collector Name Role Phone Nga Lee MD Primary Care Provider [phone] Surgical History Surgery Date Site/Laterality Comments CERVICAL LAMINECTOMY PROCEDURE: HISTORICAL CERV LAMINECTOMY; COMMENT: C5-6 fusion 2016 SHOULDER SURGERY 2015 PROCEDURE: HISTORICAL SHOULDER SURGERY Medical History Medical History Date Comments Allergic reaction 03/04/2016 DX:Allergic re action Allergic rhinitis 10/12/2017 DX:Allergic rh initis Cervicalgia 10/12/2017 DX:Cervicalgia; COMMENT: C5-C6 fusion Daily nausea 06/14/2018 DX:Daily nausea Diarrhea 06/14/2018 DX:Diarrhea Erectile dysfunction 03/04/2016 DX:Erectile dysfunction GERD (gastroesophageal reflux disease) 10/12/2017 DX:GERD (gastroesophageal reflux disease) Hyperlipidemia 10/12/2017 DX:Hyperlipidemi a Hypertension 10/12/2017 DX:Hypertension Leukopenia 03/04/2016 DX:Leukopenia Liver lesion 04/14/2018 DX:Liver lesion Migraine 10/12/2017 DX:Migraine MORALES (obstructive sleep apnea) 10/12/2017 DX :MORALES (obstructive sleep apnea) Urinary frequency 03/25/2018 DX:Urinary natty quency Vitamin D deficiency 01/22/2018 DX:Vitamin D deficiency Family History Medical History Relation Name Comments Hypertension Mother Relation Name Status Comments Father Mother Alive Social History Tobacco Use Types Packs/Day Years Used Date Smoking Tobacco: Former Cigarettes Smokeless Tobacco: Never Alcohol Use Standard Drinks/Week Comments Yes 4 (1 standard drink = 0.6 oz pur e alcohol) Sex and Gender Information Value Date Recorded Sex Assigned at Not on file Gender Identity Not on file Sexual Orientation Not on file Obstetrics History Plan of Treatment Health Maintenance Due Date Last Done Comments DTaP,Tdap,and Td Vaccines (1 - Tdap) 1982 Zoster Vaccines (1 of 2) 2013 Hepatitis B Vaccines (3 of 3 - 19+ 3-dose series) 11/05/2016 06/05/2016, 05/05/2016 COVID-19 Vaccine ( - 2023-2 5 season) 2024 Influenza Vaccine (#1) 2024 RSV Immunization Patients 60 + Years Old (1 - 1-dose 75+ series) 2038 HIB Vaccines Aged Out No longer eligi ble based on patient's age to complete this topic HPV Vaccines Aged Out No longer eligi ble based on patient's age to complete this topic Hepatitis A Vaccines Aged Out No long er eligible based on patient's age to complete this topic IPV Vaccines Aged Out No longer eligi ble based on patient's age to complete this topic MMR Vaccines Aged Out No longer eligi ble based on patient's age to complete this topic Meningococcal ACWY Vaccine Aged Out N o longer eligible based on patient's age to complete this topic Pneumococcal Vaccine: Pediatrics (0 to 5 Years) and At-Risk Patients (6 to 64 Years) Aged Out No longer eligible b ased on patient's age to complete this topic RSV Immunization Patients Under 20 months Aged Out No longer eligible b ased on patient's age to complete this topic Varicella Vaccines Aged Out No longer eligible based on patient's age to complete this topic Care Teams Commercial Collector Relationship Specialty Start Date End Date Nga Lee MD PCP - General Internal Medicine 06/29/18
== END 2024-10-10 13:58 | disposition home or self-care (01) ==
PROVIDERS: PCP Internal Medicine; Visit Provider Orthopaedic Surgery
DX: S82.141D Displaced bicondylar fracture of right tibia, subsequent encounter for closed fracture with routine healing (principal)
CPT/HCPCS: 20610; 99214

== ENCOUNTER → 2024-10-10 12:08 | Outpatient (BNVA) | payer OTHER, SELFPAY ==
[2024-09-22 11:24] VITALS: BP 128/72; BP 142/80; BP 144/74; BMI 25.4
== END ==
PROVIDERS: PCP Internal Medicine; Visit Provider Orthopaedic Surgery
DX: S82.141D Displaced bicondylar fracture of right tibia, subsequent encounter for closed fracture with routine healing (principal)
CPT/HCPCS: 20610; J0665; J1100; J2003

== ENCOUNTER 2024-10-27 09:24 | Outpatient (REF) | payer OTHER, SELFPAY ==
[2024-09-22 11:24] VITALS: BP 128/72; BP 142/80; BP 144/74; BMI 25.4
--- OUTSIDE RECORDS SUMMARY | 2024-10-27 09:46 | XMS_ITS | Clinical Summary ---
Author Organization [facility] Address [address] [place] [address] Care Team Providers Care Lining Strap Closer Name Role Phone Unavailable Primary Care Provider Unavailabl e Social History Tobacco Use Types Packs/Day Years Used Date Smoking Tobacco: Never Assessed Sex and Gender Information Value Date Recorded Sex Assigned at Male 12/21/2019 7:33 AM EDT Gender Identity Not on file Sexual Orientation Not on file Plan of Treatment Not on file
--- OUTSIDE RECORDS SUMMARY | 2024-10-27 09:46 | XMS_ITS | Clinical Summary ---
Author Organization [facility] Address [address] [place] [address] Care Team Providers Care Lining Strap Closer Name Role Phone Nga Lee MD Primary Care Provider [phone] Surgical History Surgery Date Site/Laterality Comments CERVICAL [...] Recorded Sex Assigned at Not on file Legal Sex Male 5:22 PM EST Gender Identity Not on file Sexual Orientation Not on file Obstetrics History Plan of Treatment Health Maintenance Due Date Last Done Comments DTaP,Tdap,and Td Vaccines (1 - Tdap) 1982 Pneumococcal Vaccine: 50+ Years (1 of 1 - PCV) 2013 Zoster Vaccines (1 of 2) 2013 Hepatitis B Vaccines (3 of 3 - 19+ 3-dose series) 11/05/2016 06/05/2016, 05/05/2016 COVID-19 Vaccine (1 - 2023-2 5 season) 2024 Influenza Vaccine [...] patient's age to complete this topic Meningococcal B Vacine Aged Out No lo nger eligible based on patient's age to complete [...] age to complete this topic Care Teams Lining Strap Closer Relationship Specialty Start Date End Date Nga Lee MD PCP - General Internal Medicine 06/29/18
[2024-11-03 00:38] LABS: Pancreatic Elastase-1 >800 mcg/g (>200)
[2024-11-03 19:17] LABS: Calprotectin, Fecal 13 mcg/g
== END 2024-10-27 09:25 | disposition home or self-care (01) ==
LOC: HO.LNP 09:24
PROVIDERS: Visit Provider Internal Medicine Gastroenterology
DX: R19.7 Diarrhea, unspecified (principal)
CPT/HCPCS: 82656; 83993

== ENCOUNTER 2025-01-09 12:09 | Outpatient (REF) | payer OTHER, SELFPAY ==
[2024-09-22 11:24] VITALS: BP 128/72; BP 142/80; BP 144/74; BMI 25.4
--- OUTSIDE RECORDS SUMMARY | 2025-01-09 14:29 | XMS_ITS | Clinical Summary ---
Author Organization [facility] Address [address] [place] [address] Care Team Providers Care Marine Architect Name Role Phone Nga Lee MD Primary Care Provider [phone] Surgical History Surgery Date Site/Laterality Comments CERVICAL [...] - 2023-2 5 season) 2024 Influenza Vaccine (Season Ended) 2025 RSV Immunization Adult Patients (1 - 1-dose 75+ series) 2038 HIB [...] age to complete this topic Meningococcal B Vaccine Aged Out No l onger eligible based on patient's age to complete [...] age to complete this topic Care Teams Marine Architect Relationship Specialty Start Date End Date Nga Lee MD PCP - General Internal Medicine 06/29/18
--- OUTSIDE RECORDS SUMMARY | 2025-01-09 14:29 | XMS_ITS ---
Author Name [facility] Organization Unknown Care Team Organization Name Specialty Phone Email Start Date End Gabe garcia [facility] 12/07/2023 [facility] 11/23/2023
--- OUTSIDE RECORDS SUMMARY | 2025-01-09 14:29 | XMS_ITS | Clinical Summary ---
Author Organization [facility] Address [address] [place] [address] Care Team Providers Care Log Pond Worker Name Role Phone Unavailable Primary Care Provider Unavailabl e Social History Tobacco Use Types Packs/Day Years Used Date Smoking Tobacco: Never Assessed Sex and Gender Information Value Date Recorded Sex Assigned at Male 12/21/2019 7:33 AM EDT Gender Identity Not on file Sexual Orientation Not on file Plan of Treatment Not on file
== END 2025-01-09 12:10 | disposition home or self-care (01) ==
LOC: HO.HOSX 12:09
PROVIDERS: Visit Provider Orthopaedic Surgery
DX: Z13.89 Encounter for screening for other disorder (principal)

== ENCOUNTER 2025-03-15 15:35 | Outpatient (AMB) | payer OTHER, SELFPAY ==
[2024-09-22 11:24] VITALS: BP 128/72; BP 142/80; BP 144/74; BMI 25.4
--- OUTSIDE RECORDS SUMMARY | 2025-03-15 15:43 | XMS_ITS | Clinical Summary ---
Author Organization [facility] Address [address] [place] [address] Care Team Providers Care Postal Mail Carrier Name Role Phone Nga Lee MD Primary Care Provider [phone] Surgical History Surgery Date Site/Laterality Comments CERVICAL [...] age to complete this topic Care Teams Postal Mail Carrier Relationship Specialty Start Date End Date Nga Lee MD PCP - General Internal Medicine 06/29/18
--- OUTSIDE RECORDS SUMMARY | 2025-03-15 15:43 | XMS_ITS | Continuity of Care Document ---
Author Organization [facility] Address [address] [place] [address] Insurance Providers Payer Plan Claims Address Claims Phone Policy Number Group Number Relation Employer Guarantor Name Guarantor Guarantor Address Guarantor Phone MEDIC ARE [employer] , [employer] [address], [place] [address] tel:[phone] Melissa Gallagher [address] [place] [id number] GENER [employer] MED[employer] ARE [address] [address], [place] [address] tel:[phone] [facility] Melissa Gallagher [address] [place] [address] AARP Medic are Anneliese mcgovern Plan [id number] [facility] Melissa Gallagher [address] [place] [address] Problems Unknown Problems Results No Results Allergies, [...]
--- OUTSIDE RECORDS SUMMARY | 2025-03-15 15:44 | XMS_ITS ---
Author Name [facility] Organization Unknown Care Team Organization Name Specialty Phone Email Start Date End Gabe garcia [facility] 12/07/2023 [facility] 11/23/2023
--- OUTSIDE RECORDS SUMMARY | 2025-03-15 15:44 | XMS_ITS | Clinical Summary ---
Author Organization [facility] Address [address] [place] [address] Care Team Providers Care Septic Tank Servicer Name Role Phone Unavailable Primary Care Provider Unavailabl e Social History Tobacco Use Types Packs/Day Years Used Date Smoking Tobacco: Never Assessed Sex and Gender Information Value Date Recorded Sex Assigned at Male 12/21/2019 7:33 AM EDT Gender Identity Not on file Sexual Orientation Not on file Plan of Treatment Not on file
[2025-03-15 15:58] VITALS: BP 100/60; PULSE 62; BMI 25.1
--- NOTE | 2025-03-15 15:58 | A.OFFVIS_ITS ---
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 Required: No Accompanied by: Self / Same As Patient Allergies No Known Allergies Allergy (Verified 02/09/25 07:54) Medication List - Last Reconciled 03/15/25 by Zak Foster MD aspirin 81 mg PO DAILY atorvastatin 80 mg PO DAILY 90 days fimhwjuprq-baperkzb-tvadkrmrnr 160-9-4.8 mcg/actuation (Breztri Aerosphere) 2 inhalations inhalation BID 30 days ezetimibe 10 mg PO DAILY 90 days gabapentin 300 mg PO BEDTIME PRN hydrochlorothiazide 25 mg PO DAILY 90 days hydroxyzine HCl 25 mg PO DAILY PRN losartan 50 mg PO DAILY pantoprazole 40 mg PO DAILY 60 days psyllium husk (Fiber (psyllium husk)) 0.52 grams PO BID PRN 60 days HPI Comments Details: 59-year-old gentleman here for follow-up. He has background history of hypertension. His blood pressure control is good. He had exertional chest discomfort and reported previous PCI. He was taken cardiac catheterization which revealed mild disease in the LAD and no evidence of previous stents. He has been diagnosed with asthma. His main complaints are shortness of breath and chest tightness when he does activities. Unfortunately he is having some issues with affording the inhalers at this stage. On follow-up today he is denying any chest discomfort. Off and he gets palpitations but these are quite infrequent at this point. Blood pressure is low. He has been dizzy when he is out in the heat. [facility] Medical History Chronic cough Chronic rhinitis Asthma Vitamin D deficiency Encounter for screening for malignant neoplasm of prostate COVID-19 vaccine series completed Left ankle pain Left foot pain Coronary artery disease Overweight (BMI 25.0-29.9) Seborrheic dermatitis of scalp Cervical disc disease Cardiac murmur Lumbar degenerative disc disease Pure hypercholesterolemia Benign essential hypertension Obstructive sleep apnea Diarrhea Anorexia Nausea Abdominal pain Surgical History History of cardiac cath Hx of colonoscopy History of esophagogastroduodenoscopy (EGD) History of heart artery stent History of fusion of cervical spine S/P rotator cuff surgery Family History Father Hypertension Mother Hypertension Paternal Uncle Colon cancer Social History (Reviewed 03/15/25 @ 16:00 by Nevin Camarena [facility]) Housing: House Alcohol intake: current Alcohol intake frequency: a few times a week Alcohol type: beer Patient Tobacco Use Status: Never used Tobacco e-Cigarette/Vaping Use: Never Used Second Hand Smoke Exposure: Yes Substance Use Type: Marijuana service: Yes ([employer]) Current occupational status: disabled 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 Cognitive needs: No Hearing needs: No Vision needs: Yes Review of Systems Const Denies chills, Denies fatigue, Denies fever(s), Denies frequent falls, Denies weakness, Denies weight gain and Denies weight loss ENT Denies dizziness Card Denies chest pain, Denies leg edema, Denies lightheadedness, Denies pal pitations, Denies dyspnea and Denies dyspnea on exertion Resp Denies cough, Denies dyspnea and Denies dyspnea on exertion GI Denies hematochezia Musc Denies abnormal gait, Denies muscle weakness, Denies numbness, Denies radiating pain into limb and Denies tingling Neuro Denies abnormal gait, Denies dizziness, Denies frequent falls, Denies numbness, Denies tingling and Denies weakness Endo Denies fatigue and Denies palpitations Physical Exam Vital Signs: Last Vital Signs Pulse 62 03/15/25 15:58 BP 100/60 03/15/25 15:58 BMI result Body Mass Index 25.1 GENERAL APPEARANCE: in no acute distress, pleasant. NECK: no carotid bruit, no jugular venous distention. SKIN: no suspicious lesions, warm and dry. HEART: no murmurs, regular rate and rhythm. LUNGS: clear to auscultation bilaterally. ABDOMEN: soft, nontender. EXTREMITIES: no edema. PERIPHERAL PULSES: equal. NEUROLOGIC: No gross deficits, AAO X 3 Office Procedures EKG Details: Sinus rhythm 62 beats per minute, normal axis, left ventricular hypertrophy, QTC 383 milliseconds. 55025-Bakfrdxdwxthocmze, Complete Assessment & Plan Assessment & Plan (1) Benign essential hypertension: Code(s): I10 - Essential (primary) hypertension Category: Medical (2) Palpitations: Code(s): R00.2 - Palpitations Category: Medical Plan 59-year-old gentleman who is here for follow-up. Blood pressure is a little low today. He is saying the palpitations are infrequent. No syncope or dizziness with palpitations. He has had felt some dizziness when he is in hot environment. During cardiac catheterization he was given nitroglycerin and clearly had a vasovagal response there. He is sensitive to dehydration and heat. I have advised him to be careful when he is out in the heat and should cover his head and drink plenty of water. Overall he has been stable. He will continue same medications for now. If any orthostatic dizziness then hydrochlorothiazide can be stopped. Thank you for allowing me to participate in the care of your patient. Please feel free to contact me if you have any questions. Coding Level of Care Code Est Pt Level 3 (25950) Diagnoses Benign essential hypertension I10 Palpitations R00.2 CPT Codes EKG - CPT: 48464-Bhiahrynzgnassoch, Complete ([id number])
== END 2025-03-15 16:18 | disposition home or self-care (01) ==
LOC: HO.HCS 15:35
PROVIDERS: PCP Internal Medicine; Visit Provider Internal Medicine Cardiovascular Disease
DX: I10 Essential (primary) hypertension (principal); R00.2 Palpitations
CPT/HCPCS: 93010; 99213

== ENCOUNTER → 2025-03-15 15:35 | Outpatient (BNVA) | payer OTHER, SELFPAY ==
[2024-09-22 11:24] VITALS: BP 128/72; BP 142/80; BP 144/74; BMI 25.4
== END ==
PROVIDERS: PCP Internal Medicine; Visit Provider Internal Medicine Cardiovascular Disease
DX: I10 Essential (primary) hypertension (principal); R00.2 Palpitations; R94.31 Abnormal electrocardiogram [ECG] [EKG]; I44.4 Left anterior fascicular block; I51.7 Cardiomegaly
CPT/HCPCS: 93005

== ENCOUNTER 2025-04-04 06:56 | Outpatient (REF) | payer OTHER, SELFPAY ==
[2024-09-22 11:24] VITALS: BP 128/72; BP 142/80; BP 144/74; BMI 25.4
--- OUTSIDE RECORDS SUMMARY | 2025-04-04 06:58 | XMS_ITS | Encounter Summary ---
Author Organization [facility] Address [address] [place] [address] Phone Care Team Providers Care Survey Field Technician Name Role Phone Nga Lee MD Primary Care Provider Encounter Details Date Type Department Care Team (Latest Contact Info) Description 02/25/2018 Transcribe Orders [facility] [address] [place] [address] [address] Floor, [address] [place] [address] Lian Thomas MD [address] [facility] [address] [place] [address] Chest pain, unspecified type (Primary Dx) Social History Tobacco Use Types Packs/Day Years Used Date Smoking Tobacco: Never Assessed Sex and Gender Information Value Date Recorded Sex Assigned at Not on file Legal Sex Male 11:50 AM EDT Gender Identity Not on file Sexual Orientation Not on file documented as of this encounter Plan of Treatment Not on file documented as of this encounter Visit Diagnoses Diagnosis Chest pain, unspecified type- Primary documented in this encounter Care Teams Survey Field Technician Relationship Specialty Start Date End Date Nga Lee MD [address] [facility] [address] [facility] [address] [place] [address] PCP - General 02/25/18 documented as of this encounter Additional Source Comments The information contained in this document represents components of the legal health record. It is not the complete legal health record.[facility]
--- OUTSIDE RECORDS SUMMARY | 2025-04-04 06:58 | XMS_ITS | Clinical Summary ---
Author Organization [facility] Address [address] [place] [address] Care Team Providers Care Tier Lift Truck Operator Name Role Phone Unavailable Primary Care Provider Unavailabl e Social History Tobacco Use Types Packs/Day Years Used Date Smoking Tobacco: Never Assessed Sex and Gender Information Value Date Recorded Sex Assigned at Male 12/21/2019 7:33 AM EDT Gender Identity Not on file Sexual Orientation Not on file Plan of Treatment Not on file
[2025-04-04 07:07] LABS: MANUAL DIFF FLAG NO
[2025-04-04 07:22] LABS: Hematocrit 40.8 % (42.0-52.0); Hemoglobin 14.1 g/dl (14.0-18.0); Imm Gran Abs Auto 0.01 X10*3/uL (0.00-0.03); Imm Gran Pct Auto 0.2 % (0.0-0.4); Lymphocytes Absolute Auto 3.1 X10*3/uL (1.2-4.9); Mean Corpuscular HGB Conc 34.6 g/dl (31.0-36.0); Mean Corpuscular Hemoglobin 31.1 pg (27.0-33.0); Mean Corpuscular Volume 90.1 fL (80.0-98.0); NRBC Abs Auto 0.000 X10*3/uL (0.0-0.012); NRBC Pct Auto 0.0 /100WBC (0.0-0.2); Platelet Count 326 X10*3/uL (160-400); Red Blood Count 4.53 X10*6/uL (4.60-5.80); White Blood Count 5.3 X10*3/uL (4.8-10.8)
[2025-04-04 07:34] LABS: Hemoglobin A1C 143.4014 umol/L; Total Hemoglobin (HGBA1C) 3720.9254 umol/L
[2025-04-04 07:44] LABS: Appearance Urine Clear; Glucose Urine UA Negative (Negative); PH 6.5 (5.0-9.0); Specific Gravity - Urine 1.010 (1.005-1.025); UMIC TRIGGER UACC YES
[2025-04-04 07:56] LABS: Alanine Aminotransferase 26 U/L (0-40); Albumin Level 4.4 g/dL (3.5-5.0); Alkaline Phosphatase 87 U/L (39-117); Anion Gap 12 (12-20); Aspartate Amino Transferase 29 U/L (5-37); Blood Urea Nitrogen 9 mg/dL (9-16); Calcium 9.2 mg/dL (8.4-10.2); Carbon Dioxide 29 mmol/L (22-29); Chloride 108 mmol/L (96-108); Cholesterol 207 mg/dL (<200); Estimated Glomerular Filt Rate > 60; HDL Cholesterol 54 mg/dL (>40); Potassium 4.4 mmol/L (3.3-5.1); Sodium 145 mmol/L (135-145); Total Protein 7.0 g/dL (6.5-8.0); Triglycerides 130 mg/dL (<150)
== END 2025-04-04 06:57 | disposition home or self-care (01) ==
LOC: HO.LAB 06:56
PROVIDERS: PCP Internal Medicine; Visit Provider Internal Medicine
DX: D64.9 Anemia, unspecified (principal); E78.00 Pure hypercholesterolemia, unspecified; E11.9 Type 2 diabetes mellitus without complications; R30.0 Dysuria; R19.7 Diarrhea, unspecified
CPT/HCPCS: 36415; 80053; 80061; 81001; 83036; 84443; 85025; 85027; 86140

== ENCOUNTER → 2025-04-05 16:38 | Outpatient (AMB) | payer OTHER, MEDICAID, SELFPAY ==
[2024-09-22 11:24] VITALS: BP 128/72; BP 142/80; BP 144/74; BMI 25.4
--- OUTSIDE RECORDS SUMMARY | 2025-04-05 16:40 | XMS_ITS | Clinical Summary ---
Author Organization [facility] [employer] [facility] Address [address] [place] [address] Care Team Providers Care Box Blank Machine Operator Helper Name Role Phone Unavailable Primary Care Provider Unavailabl e Social History Tobacco Use Types Packs/Day Years Used Date Smoking Tobacco: Never Assessed Sex and Gender Information Value Date Recorded Sex Assigned at Male 12/21/2019 7:33 AM EDT Gender Identity Not on file Sexual Orientation Not on file Plan of Treatment Not on file
--- OUTSIDE RECORDS SUMMARY | 2025-04-05 16:40 | XMS_ITS | Encounter Summary ---
Author Organization [facility] Address [address] [place] [address] Phone Care Team Providers Care Utilization Review Nurse Name Role Phone Nga Lee MD Primary Care Provider [phone] Encounter Details Date Type Department Care Team (Latest Contact Info) Description 02/25/2018 Transcribe Orders [facility] [address] [facility] [address]rd Floor, [address] [place] [address] Lian Thomas MD [address] [facility] [address] [place] [address] Chest pain, unspecified type (Primary Dx) Social [...] Primary documented in this encounter Care Teams Utilization Review Nurse Relationship Specialty Start Date End Date Nga Lee MD [address] [facility] [address] [facility] [address] [place] [address] PCP - General 02/25/18 documented as of this encounter Additional Source Comments The information contained in this document represents components of the legal health record. It is not the complete legal health record.[facility]
--- OUTSIDE RECORDS SUMMARY | 2025-04-05 16:40 | XMS_ITS | Clinical Summary ---
Author Organization [employer] it Address [address] [place] [address] Care Team Providers Care Blood Donor Unit Assistant Name Role Phone Nga Lee MD Primary Care Provider [phone] Surgical History Surgery Date Site/Laterality Comments CERVICAL [...] Vaccine (1 - 2023-2 5 season) 2024 Depression Screening 09/14/2024 Influenza Vaccine (#1) 2025 RSV Immunization Adult Patients (1 - [...] age to complete this topic Care Teams Blood Donor Unit Assistant Relationship Specialty Start Date End Date Nga Lee MD PCP - General Internal Medicine 06/29/18
[2025-04-05 16:41] VITALS: BP 122/80; PULSE 62; O2SAT 98; BMI 24.9
--- NOTE | 2025-04-05 16:41 | A.OFFPC_ITS ---
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 Required: No Accompanied by: Self / Same As Patient Allergies No Known Allergies Allergy (Verified 04/05/25 17:43) Medication List - Last Reconciled 04/05/25 by Gage Cha MD aspirin 81 mg PO DAILY atorvastatin 80 mg PO DAILY 90 days tfivampodu-foszhqhj-ireoyuuhof 160-9-4.8 mcg/actuation (Breztri Aerosphere) 2 inhalations inhalation BID 30 days ezetimibe 10 mg PO DAILY 90 days gabapentin 300 mg PO BEDTIME PRN hydrochlorothiazide 25 mg PO DAILY 90 days hydroxyzine HCl 25 mg PO DAILY PRN losartan 50 mg PO DAILY pantoprazole 40 mg PO DAILY 60 days psyllium husk (Fiber (psyllium husk)) 0.52 grams PO BID PRN 60 days Tobacco use date assessed: 04/05/25 Dental Screening Dental Screen Date: 04/05/25 Did you have a dental visit in the last 12 months?: Yes Did you have a dental problem in the last 6 months where you did not have access to dental care?: No Was dental information given to patient?: Patient has dentist HPI Annual PE - see comments HPI Details Patient comes in today for his annual physical examination States that he currently feels okay He denies any headaches or dizziness Denies any chest pains, no SOB No nausea/vomiting, no abdominal pain No change in bowel habits noted He denies any acute urinary symptoms He is still experiencing frequent problems with his right knee - knee still feels weak and he feels that it will give out on him at any time if he is not wearing his knee brace He has reportedly been advised by orthopedics that he will require total knee arthroplasty at some point He had his follow up labs done yesterday - to discuss his results His screening colonoscopy was last done with Dr. Valadez in 2020 and he is due for repeat colonoscopy States that he was seen by Dr. Garcia recently and has been advised that they will reach out to him once his repeat colonoscopy is scheduled [facility] Medical History Chronic cough Chronic rhinitis Asthma Vitamin D deficiency Encounter for screening for malignant neoplasm of prostate COVID-19 vaccine series completed Left ankle pain Left foot pain Coronary artery disease Overweight (BMI 25.0-29.9) Seborrheic dermatitis of scalp Cervical disc disease Cardiac murmur Lumbar degenerative disc disease Pure hypercholesterolemia Benign essential hypertension Obstructive sleep apnea Diarrhea Anorexia Nausea Abdominal pain Surgical History History of cardiac cath Hx of colonoscopy History of esophagogastroduodenoscopy (EGD) History of heart artery stent History of fusion of cervical spine S/P rotator cuff surgery Family History Father Hypertension Mother Hypertension Paternal Uncle Colon cancer Social History Housing: House Alcohol intake: current Alcohol intake frequency: a few times a week Alcohol type: beer Patient Tobacco Use Status: Never used Tobacco e-Cigarette/Vaping Use: Never Used Second Hand Smoke Exposure: Yes Substance Use Type: Marijuana service: Yes ([employer] [facility] Current occupational status: disabled 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 1. Little interest or pleasure in doing things: several days 2. Feeling down, depressed, or hopeless: not at all 3. Trouble falling or staying asleep, or sleeping too much: several days 4. Feeling tired or having little energy: several days 5. Poor appetite or overeating: several days 6. Feeling bad about yourself - or that you are a failure or have let yourself or your family down: not at all 7. Trouble concentrating on things, such as reading the newspaper or watching television: several days 8. Moving or speaking so slowly that other people could have noticed. Or the opposite - being so fidgety or restless that you have been moving around a lot more than usual: several days 9. Thoughts that you would be better off or of hurting yourself in some way: not at all Total score: 6 Depression Screening Interpretation: Positive Depression Screening Follow-up: Existing condition and In treatment Depression Screening Done: Yes 57489 - PHQ-9 Billing: Yes Source: Developed by Drs. Brody Pat, Brenda Sutton, Patrice Osorio and colleagues, with an educational nayana from [employer]. Thrive Questionnaire Date Thrive assessed: 04/05/25 I am a: Patient What is your living situation today?: I have a steady place to live Within the past 12 months, did the food you bought not last and you didn't have the money to get more?: Sometimes True Within the past 12 months, did you worry whether your food would run out before you got money to buy more?: Sometimes True Do you have trouble paying for medicines?: Yes Do you have trouble getting transportation to medical appointments?: Yes Do you have trouble paying your heating and electricity bill?: Yes Do you have trouble taking care of your child, family member or friend?: No Do you have trouble with day-to-day activities such as bathing, preparing meals, shopping, managing finances, etc.?: Yes Are you currently unemployed and looking for a job?: No Are you interested in more education?: Yes Please select the resources that you would like help with: Food, Paying for medicine, Transportation and Care for elder or disabled Currently or been in a relationship where the following occur: No concerns reported THRIVE Score: 4 AUDIT C Alcohol Use Questionnaire (AUDIT-C) 1. How often do you have a drink containing alcohol?: 2-3 times a week 2. How many drinks containing alcohol do you have on a typical day when you are drinking?: 1 or 2 3. How often do you have six or more drinks on one occasion?: Never Total Score: 3 Score Reviewed/Action Taken: Yes LAWRENCE-7 AMB Questionnaire LAWRENCE-7 Date LAWRENCE - 7 assessed: 04/05/25 Feeling nervous, anxious, or on edge: 1 = Several days Not being able to stop or control worryin = Several days Worrying too much about different things: 1 = Several days Trouble relaxin = Several days Being so restless that it is hard to sit still: 1 = Several days Becoming easily annoyed or irritable: 1 = Several days Feeling afraid as if something awful might happen: 0 = Not at all Total LAWRENCE-7 score (0-4 normal; 5-9 mild; 10-14 moderate; 15-21 severe): 6 Source: Developed by Drs. Brody Pat, Brenda Sutton, Patrice Osorio and colleagues, with an educational nayana from [employer]. Review of Systems Const Denies chills, Denies fatigue, Denies fever(s), Denies headache(s), Denies malaise and Denies weakness Eyes Denies blurry vision, Denies change in vision, Denies irritation and Denies itchy eyes ENT Denies dysphagia, Denies dizziness, Denies otalgia, Denies headache(s), Denies nasal congestion, Denies neck pain, Denies odynophagia and Denies sore throat Card Denies chest pain, Denies rapid heart rate, Denies irregular heart rhythm, Denies palpitations and Denies dyspnea Resp Denies chest congestion, Denies cough, Denies dyspnea and Denies wheezing GI Denies abdominal pain, Denies bloating, Denies constipation, Denies dysphagia, Denies heartburn, Denies diarrhea, Denies nausea, Denies odynophagia and Denies vomiting Denies hematuria, Denies difficulty urinating, Denies dysuria, Denies urinary frequency and Denies urinary urgency Musc Denies back pain, Denies arthralgias (but right knee feels weak (see HPI)), Denies joint swelling, Denies muscle weakness and Denies neck pain Skin/Breast Denies change in pigmentation, Denies lesions, Denies rash and Denies unusual bruising Neuro Denies dizziness, Denies headache(s), Denies paresthesias and Denies weakness Endo Denies fatigue and Denies palpitations Aller/Immun Denies itchy eyes and Denies wheezing Physical exam (Primary Care) Vital Signs: Last Vital Signs Pulse 62 04/05/25 16:41 BP 122/80 04/05/25 16:41 Pulse Ox 98 04/05/25 16:41 Oxygen Delivery Method Room Air 04/05/25 16:41 BMI result Body Mass Index 24.9 Tobacco/Smoking Status: Tobacco use Status Tobacco use date assessed 04/05/25 04/05/25 16:44 Patient Tobacco Use Status Never used Tobacco 04/05/25 16:44 e-Cigarette/Vaping Use Never Used 04/05/25 16:44 PHQ-9: PHQ-9 Score PHQ-9: Total score 6 04/05/25 19:33 Depression Screening Interpretation: Positive Depression Screening Follow-up: Existing condition and In treatment Thrive Assessment: Date of Thrive Assessment Date Thrive assessed 04/05/25 04/05/25 16:44 Currently or been in a relationship where the following occur: No concerns reported Const General: no acute distress, alert and awake Orientation/consciousness: patient oriented x3 HENMT Head: Yes normocephalic and Yes atraumatic Ears: external ears normal, TM's normal bilaterally and EAC's normal General nose exam: No nasal discharge present Face and sinus: Yes normal facial exam and Yes sinuses nontender Teeth and gingiva: dentition normal Throat: Yes posterior oropharynx normal and Yes tonsils normal (no TP congestion) Eyes Eyelids: Yes eyelids normal Conjunctivae: conjunctivae normal Pupils: Equal, round and reactive pupils present EOM: EOMs intact bilaterally Neck Neck: Yes no lymphadenopathy and Yes supple Thyroid: Thyroid normal Resp Auscultation: clear to auscultation bilaterally, no rales and no wheezes Cardio Rate: regular rate Rhythm: regular rhythm Heart sounds: no murmurs GI Palpation (GI): Soft to palpation, nontender and No hepatosplenomegaly present Auscultation: normal bowel sounds General: Yes no CVA tenderness Back/Spine/Pelvis Back: no CVA tenderness Thoracic/Lumbar Spine: thoracic and lumbar spine normal to inspection Skin Lesions: no lesions Rashes: no rashes Neuro General: patient oriented x3, moves all extremities, no focal motor deficits and CN's II-XI intact bilaterally Cranial nerves: Yes Equal, round and reactive pupils present Cognition (Neuro): normal cognition Gait exam (Neuro): Normal gait present Extrem Other: (+) brace over the right knee General: Yes no clubbing, cyanosis or edema Results Reviewed Results Reviewed: Laboratory Tests 04/04/25 04/04/25 07:02 07:06 WBC 5.3 Hgb 14.1 Hct 40.8 L Plt Count 326 Sodium 145 Potassium 4.4 Creatinine 1.09 Estimated GFR > 60 Fasting Glucose 91 Hemoglobin A1c % 5.7 Calcium 9.2 D AST 29 ALT 26 Triglycerides 130 Cholesterol 207 H LDL Cholesterol, Calc 127 H HDL Cholesterol 54 TSH 1.[address] [place] 1.010 Urine Protein Negative Urine Glucose (UA) Negative Urine Blood Trace H Urine Nitrite Negative Ur Leukocyte Esterase Negative Coding Level of Care Code Est Pt Level 4 (44757) Est Pt Prev Care 40-64y(10018) Diagnoses Annual physical exam Z00.00 Coronary artery disease involving [place] coronary artery of [place] heart without angina pectoris I25.10 Coronary Disease-Associated Artery/Lesion type: [place] artery [place] vs. transplanted heart: [place] heart Associated angina: without angina Pure hypercholesterolemia E78.00 Essential hypertension I10 Obstructive sleep apnea G47.33 Moderate persistent asthma without complication J45.40 Asthma severity: moderate Asthma persistence: persistent Asthma complication type: uncomplicated Vitamin D deficiency E55.9 Degeneration of intervertebral disc of lumbar region with discogenic back pain M51.360 Disc-related pain type: discogenic back pain only Closed fracture of right tibial plateau, sequela S82.141S Encounter type: sequela Fracture type: closed Mood disorder F39 Additional Codes PHQ-9 - 96106 - PHQ-9 Billing: Yes ([id number]) Assessment & Plan Assessment & Plan (1) Annual physical exam: Code(s): Z00.00 - Encounter for general adult medical examination without abnormal findings Category: Medical Plan: Results of his labs done yesterday reviewed and discussed with patient His screening colonoscopy was last done with Dr. Valadez in 2020 and he is due for repeat colonoscopy He was seen by Dr. Garcia recently and was reportedly advised that they will reach out to him once his repeat colonoscopy is scheduled (2) Coronary artery disease: Code(s): I25.10 - Atherosclerotic heart disease of [place] coronary artery without angina pectoris Category: Medical Qualifiers: Coronary Disease-Associated Artery/Lesion type: [place] artery [place] vs. transplanted heart: [place] heart Associated angina: without angina Qualified Code(s): I25.10 - Atherosclerotic heart disease of [place] coronary artery without angina pectoris Plan: (+) Hx of PCI in the past Extended Holter monitor done showed baseline rhythm of sinus; stress testing in mid 2020 came out mostly normal except for mild to moderate intensity inferolateral and lateral ischemia in the circumflex territory Patient ended up having cardiac catheterization done in 07/2021 that revealed only mild CAD involving the proximal LAD; no significant CAD otherwise Continue Aspirin 81 mg QD and aggressive risk factor modification Repeat EKG done in the office back in September 2022 revealed (+) sinus rhythm, with marked LAD, LAFB with no acute ST-T wave changes noted Follow up with cardiology as scheduled (3) Pure hypercholesterolemia: Code(s): E78.00 - Pure hypercholesterolemia, unspecified Category: Medical Plan: Patient is advised that his cholesterol numbers have improved significantly from his previous numbers last year and he should continue on working to get them lower - LDL cholesterol is now at 127 mg/dl (from 202 mg/dl last May 2024) Reinforced low cholesterol diet Continue Atorvastatin 80 mg QD and Ezetimibe 10 mg QD He was also supposed to be on Fenofibrate 145 mg QD but it looks like he stopped taking this a while ago (patient himself is not sure why) Will recheck his labs and fasting lipids in 4 months for follow up (4) Essential hypertension: Code(s): I10 - Essential (primary) hypertension Category: Medical Plan: Reinforced low sodium diet - goal is systolic BP of 120 mm or less Continue Losartan 50 mg QD and HCTZ 25 mg QD (5) Obstructive sleep apnea: Code(s): G47.33 - Obstructive sleep apnea (adult) (pediatric) Category: Medical Plan: He continues to use his CPAP device when sleeping at night and relates that he has been feeling a lot better since going back on it Follow up with pulmonary and with sleep medicine as scheduled (6) Asthma: Code(s): J45.909 - Unspecified asthma, uncomplicated Category: Medical Qualifiers: Asthma severity: moderate Asthma persistence: persistent Asthma complication type: uncomplicated Qualified Code(s): J45.40 - Moderate persist ent asthma, uncomplicated Plan: Continue Breztri Aerosphere 160-9-4.8 mcg 2 inhalations BID - he was switched over to this by pulmonary last year as he could not afford the co-pay for his previous Symbicort inhaler Continue Albuterol HFA 2 inhalations Q 6 hours PRN Follow up with pulmonary as scheduled (7) Vitamin D deficiency: Code(s): E55.9 - Vitamin D deficiency, unspecified Category: Medical Plan: His Vitamin D level was low when last checked a couple of years ago but patient is no longer taking any Vitamin D supplements Will recheck his Vitamin D level in 4 months for follow up (8) Lumbar degenerative disc disease: Code(s): M51.36 - Other intervertebral disc degeneration, lumbar region Category: Medical Qualifiers: Disc-related pain type: discogenic back pain only Qualified Code(s): M51.360 - Other intervertebral disc degeneration, lumbar region with discogenic back pain only Plan: Reinforced activity and weight-lifting restrictions Lumbar spine x-rays done last year revealed (+) minimal degenerative changes of the lower lumbar spine. No compression deformity noted We tried sending patient for an MRI of the lumbar spine for further evaluation but this was denied by his insurance Patient states that he has been using a back brace that he bought on [employer] when needed - felt that the brace was helping before but not as much recently Continue Gabapentin 300 mg Q HS (9) Tibial plateau fracture, right: Code(s): S82.141A - Displaced bicondylar fracture of right tibia, initial encounter for closed fracture Category: Medical Qualifiers: Encounter type: sequela Fracture type: closed Qualified Code(s): S82.141S - Displaced bicondylar fracture of right tibia, sequela Plan: Patient sustained this injury when he fell on his knee back on 04/07/2024 He was seen by orthopedics and was recommended conservative management with no surgery needed He completed physical therapy sometime late last year, which he states helped at the time but he continues to experience frequent sensations of knee weakness and 'buckling' He has been advised by orthopedics that he may eventually require total knee arthroplasty but patient would like to hold off on this for as long as possible Follow up with orthopedics as scheduled (10) Mood disorder: Code(s): F39 - Unspecified mood [affective] disorder Category: Medical Plan: Patient again appears clinically depressed, based on his PHQ-9 questionnaire results, but he continues to decline any Rx or Tx at this time Plan Follow up in 4 months Orders: Orders Comprehensive [place]. Panel Fast 4 Months E78.00 - Pure hypercholesterolemia, unspecified Prostate Specific Antigen 4 Months N40.0 - Benign prostatic hyperplasia without lower urinary tract symptoms, Z00.00 - Encounter for general adult medical examination without abnormal findings Complete Blood Count Auto Diff 4 Months D64.9 - Anemia, unspecified Lipid Panel 4 Months E78.00 - Pure hypercholesterolemia, unspecified TSH reflex Free T4 4 Months E78.00 - Pure hypercholesterolemia, unspecified UA CC w/rflx Micro + Cult 4 Months R30.0 - Dysuria Vitamin D 25-OH Total 4 Months E55.9 - Vitamin D deficiency, unspecified
== END ==
LOC: HO.HMCH 16:39
PROVIDERS: PCP Internal Medicine; Visit Provider Internal Medicine
DX: Z00.00 Encounter for general adult medical examination without abnormal findings (principal); I25.10 Atherosclerotic heart disease of native coronary artery without angina pectoris; E78.00 Pure hypercholesterolemia, unspecified; I10 Essential (primary) hypertension; G47.33 Obstructive sleep apnea (adult) (pediatric); J45.40 Moderate persistent asthma, uncomplicated; E55.9 Vitamin D deficiency, unspecified; M51.360 Other intervertebral disc degeneration, lumbar region with discogenic back pain only; S82.141S Displaced bicondylar fracture of right tibia, sequela; F39 Unspecified mood [affective] disorder

== ENCOUNTER → 2025-04-05 16:38 | Outpatient (BNVA) | payer MEDICARE, MEDICAID, SELFPAY ==
[2024-09-22 11:24] VITALS: BP 128/72; BP 142/80; BP 144/74; BMI 25.4
== END ==
PROVIDERS: PCP Internal Medicine; Visit Provider Internal Medicine
DX: Z00.00 Encounter for general adult medical examination without abnormal findings (principal); I25.10 Atherosclerotic heart disease of native coronary artery without angina pectoris; I11.0 Hypertensive heart disease with heart failure; E78.00 Pure hypercholesterolemia, unspecified; G47.33 Obstructive sleep apnea (adult) (pediatric); J45.40 Moderate persistent asthma, uncomplicated; E55.9 Vitamin D deficiency, unspecified; M51.360 Other intervertebral disc degeneration, lumbar region with discogenic back pain only; F39 Unspecified mood [affective] disorder; S82.141S Displaced bicondylar fracture of right tibia, sequela
CPT/HCPCS: 96127

== ENCOUNTER 2025-06-07 10:05 | Outpatient (AMB) | payer OTHER, MEDICAID, SELFPAY ==
[2024-09-22 11:24] VITALS: BP 128/72; BP 142/80; BP 144/74; BMI 25.4
--- NOTE | 2025-06-07 10:07 | MHC.OFFVIS ---
Vital Signs 06/07/25 10:08 Height 5 ft 9 in Weight 169 lb 12.095 oz BMI 25.1 BP 148/70 H Blood Pressure Location Rt brachial Position Sitting Pulse 77 Pulse Source Pulse Oximeter Pulse Oximetry (%) 99 Oxygen Delivery Method Room Air Intake Visit Reasons: Asthma Lap Runner Required: No Accompanied by: Self / Same As Patient Allergies No Known Allergies Allergy (Verified 06/07/25 10:11) HPI Comments Details: The patient is a 59-year-old gentleman presenting with chronic cough. Cough is moderate severity. Typically nonproductive in nature. It occurs in the dependent of the time were position. Denies any significant a reflux disease. Denies any heartburns. Does have nasal congestion and does have a component of allergies. The patient also has been noticing some increasing shortness of breath primarily with activity. Mild in severity. During the office visit we did go for brief walking oximetry. The patient did get winded after going up a couple stairs. However, his oxygen was reassuring and his heart rate also was slightly elevated in the low 100s. Once the patient's that down her recover. There may be a component of deconditioning as well. Patient is aware of this. In the meantime he also underwent pulmonary function studies which we personally reviewed. His lung capacity is excellent. 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 the patient does does report some intermittent chest tightness and shortness of breath. He may have a component of exercise-induced asthma. Would be reasonable to treat him. Patient also will have allergy testing to address the question of his chronic rhinitis also contributing to his symptoms. 10/14/2022 the patient is here for pulmonary follow-up visit. He continues to be about the same. Still complaining about shortness of breath bmlf-um-[id number] severity. Still having episodes of coughing. He could not get the Advair because it was too expensive. The patient does to continue to use his rescue inhaler a couple times a week. Therefore, I will go ahead and try a different combination inhaler, Symbicort. If this continues to be expensive for him then he can consider using a good Rx card in getting a combination inhaler which would be potentially significantly less. In the meantime he continues uses CPAP. although, he has not been able to get supplies from his current DME company. He did call his insurance company and they recommended that he seek out a different DME company, [employer]. I will send a prescription to [employer] for CPAP supplies. However, if there are any ongoing issues with his current DME company he is on likely to get CPAP supplies from the new company. 06/10/2023 the patient is here for a pulmonary follow-up visit. The patient recently developed a cold and had worsening respiratory symptoms. Complaint of wheezing and chest tightness. Unfortunately, he has not been able to afford any inhalers. The last 1 we sent the still expensive therefore he does not have any medications right now. The patient does not have a nebulizer either. I do have a free trial for an inhaler which I will provide him in order for him to get a month supply and hopefully be able to use it and improve his overall respiratory status. The patient should also have a rescue inhaler available. Also, the patient has not been using his CPAP. Unfortunately he also bill and he can not get supplies until he takes care that Bill through his DME company very he is sleeping on his side maintaining positional therapy. Denies any significant daytime drowsiness. His [place] score is 7/24. Therefore he will continue with positional therapy and will start the new inhaler. 12/08/2023 the patient is here for a pulmonary follow-up visit. He continues have shortness of breath with activity. He does sleep upstairs and he goes up 2 flights of stairs when she gets to the top he is very short of breath winded and also with palpitations. Moderate severity. Does get better with rest. He has been on maximum respiratory therapy with adequate response. The patient also continues uses CPAP. The CPAP therapy continues to be affecting beneficial. He does use it for more than 4 hours a night. He does not have any significant daytime drowsiness. Will go ahead and request a download from his DME company to make sure. We did again go up a flight of stairs while in office and I did check his oxygen and pulse. Initially he was doing okay and then he quickly jumped from about 80 beats per minute to about 120 very quickly then he became short of breath. Therefore I do believe that this more cardiovascular issue. He will be following up with his statistical programmer soon. 06/10/2024 the patient is here for a pulmonary follow-up visit the patient overall status. He does have his respiratory inhalers available he does use it as needed which start believe at this point this okay. He has not required any prednisone or any nebulized therapy which is reassuring. In addition to that he continues uses CPAP every night. The CPAP therapy continues to be affecting beneficial. He does get supplies from his [employer] company regularly. We did request access to his machine but does not seem to be giving any additional reports this time. The latest report is from March 2024. Seems like the machine is working just fine for him. If he has any issues will call should see if I can get access or download that may be a more updated. 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 He is currently working with orthopedic surgery in uses crutches. Otherwise no complications from that issue. He did not need surgery. 06/07/2025 the patient is here for a pulmonary follow-up visit. Overall the patient has been doing okay. He has multiple complaints as he is having significant issues with arthritis and back pain and neuropathy symptoms. Having hard time with CPAP. Has not been able to use it regularly because of the discomfort. Hopefully once he feels a little better he can go back to it. Respiratory burnette he is using his inhalers. He had been affecting beneficial. I will make sure to send to the pharmacy. He will be going to have a total knee replacement. At this point medically he is doing okay from pulmonary standpoint. The patient may be able to proceed with anesthesia and Orthopedic surgery at this time. Hopefully once he is feeling better he can go back to using CPAP. Will follow-up in a year's time if he has any issues prior to this he will call for an earlier assessment. [facility] Medical History (Updated 06/07/25 @ 10:20 by Reid Peace MD) Pre-op chest exam Chronic cough Chronic rhinitis Asthma Vitamin D deficiency Encounter for screening for malignant neoplasm of prostate COVID-19 vaccine series completed Left ankle pain Left foot pain Coronary artery disease Overweight (BMI 25.0-29.9) Seborrheic dermatitis of scalp Cervical disc disease Cardiac murmur Lumbar degenerative disc disease Pure hypercholesterolemia Benign essential hypertension Obstructive sleep apnea Diarrhea Anorexia Nausea Abdominal pain Surgical History History of cardiac cath Hx of colonoscopy History of esophagogastroduodenoscopy (EGD) History of heart artery stent History of fusion of cervical spine S/P rotator cuff surgery Family History Father Hypertension Mother Hypertension Paternal Uncle Colon cancer Social History Housing: House Alcohol intake: current Alcohol intake frequency: a few times a week Alcohol type: beer Patient Tobacco Use Status: Never used Tobacco e-Cigarette/Vaping Use: Never Used Second Hand Smoke Exposure: Yes Substance Use Type: Marijuana service: Yes ([employer]) Current occupational status: disabled 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 Cognitive needs: No Hearing needs: No Vision needs: Yes Review of Systems Const Denies daytime sleepiness and Denies fever(s) Eyes Denies change in vision ENT Denies change in voice and Reports nasal congestion Card Denies chest pain Resp Denies chest congestion, Reports cough and Denies wheezing GI Denies dyspepsia and Denies heartburn Musc Reports as per HPI, Reports abnormal gait, Reports myalgias, Reports arthralgias and Reports limited range of motion Skin/Breast Denies rash Neuro Reports no additional complaints and Reports abnormal gait Endo Denies heat intolerance Krunal/Lymph Denies easy bleeding Aller/Immun Denies wheezing Physical Exam Vital Signs: Last Vital Signs Pulse 77 06/07/25 10:08 BP 148/70 H 06/07/25 10:08 Pulse Ox 99 06/07/25 10:08 Oxygen Delivery Method Room Air 06/07/25 10:08 BMI result Body Mass Index 25.1 Const General: comfortable HEENT Head: Yes atraumatic General nose exam: Abnormal mucous membranes and turbinates present erythematous Eyes General: appearance normal, both eyes and all related structures Neck Neck: Yes supple Chest Chest palpation & inspection: normal inspection of the chest Resp Effort & Inspection: normal respiratory effort Auscultation: clear to auscultation bilaterally and no wheezes Cardio Rate: regular rate Rhythm: regular rhythm Heart sounds: S1 normal heart sound present and S2 normal heart sound present Skin General skin exam: no rashes or lesions noted Extrem General: Yes no clubbing, cyanosis or edema Assessment & Plan Assessment & Plan (1) Pre-op chest exam: Code(s): Z01.811 - Encounter for preprocedural respiratory examination Category: Medical (2) Asthma: Code(s): J45.909 - Unspecified asthma, uncomplicated Category: Medical Qualifiers: Asthma complication type: uncomplicated Asthma persistence: persistent Asthma severity: moderate Qualified Code(s): J45.40 - Moderate persistent asthma, uncomplicated (3) SOB (shortness of breath): Code(s): R06.02 - Shortness of breath Category: Medical (4) Chronic rhinitis: Code(s): J31.0 - Chronic rhinitis Category: Medical (5) Chronic cough: Code(s): R05.3 - Chronic cough Category: Medical (6) Obstructive sleep apnea: Code(s): G47.33 - Obstructive sleep apnea (adult) (pediatric) Category: Medical Plan continue Breztri MYKE as needed continue CPAP , supplies sent to [facility]. Continue exercise regimen CXR Proceed with anesthesia and orthopedic surgery F/U 8-12 months Orders: Orders XR chest 2V Today R06.02 - Shortness of breath Medications: New albuterol sulfate 90 mcg/actuation 2 inhalations inhalation Q6H PRN 18 grams 12RF shortness of breath or wheezing 30 days J44.9 - Chronic obstructive pulmonary disease, unspecified Refilled mxctreeuye-flthacei-htwdslmkgy 160-9-4.8 mcg/actuation (Breztri Aerosphere) 2 inhalations inhalation BID 10.7 grams 11RF 30 days Coding Level of Care Code Est Pt Level 4 (03733) Diagnoses Pre-op chest exam Z01.811 Moderate persistent asthma without complication J45.40 Asthma complication type: uncomplicated Asthma persistence: persistent Asthma severity: moderate SOB (shortness of breath) R06.02 Chronic rhinitis J31.0 Chronic cough R05.3 Obstructive sleep apnea G47.33 Time Spent (min) 16
[2025-06-07 10:08] VITALS: BP 148/70; PULSE 77; O2SAT 99; BMI 25.1
--- OUTSIDE RECORDS SUMMARY | 2025-06-07 12:20 | XMS_ITS | Clinical Summary ---
Author Organization [facility] [email or web address] [facility] Address [address] [place] [address] Care Team Providers Care Assistant Auditor Name Role Phone Unavailable Primary Care Provider Unavailabl e Social History Tobacco Use Types Packs/Day Years Used Date Smoking Tobacco: Never Assessed Sex and Gender Information Value Date Recorded Sex Assigned at Male 12/21/2019 7:33 AM EDT Gender Identity Not on file Sexual Orientation Not on file Plan of Treatment Not on file
--- OUTSIDE RECORDS SUMMARY | 2025-06-07 12:20 | XMS_ITS | Clinical Summary ---
Author Organization [facility] Address [address] [facility] [address] [place] [address] Phone Care Team Providers Care Car Cleaner Name Role Phone gNa Lee MD Primary Care Provider Social History Tobacco Use Types Packs/Day Years Used Date Smoking Tobacco: Never Assessed Education Answer Date Recorded Are you interested in more education? Not on boogie e 01/09/2023 Are you concerned about learning? Not on file 01/09/2023 No 01/09/2023 No 01/09/2023 Digital Access Answer Date Recorded No 02/07/2023 No 02/07/2023 No 02/07/2023 Reliable internet access at home? Not on file 02/07/2023 Device with a working camera? Not on file Sex and Gender Information Value Date Recorded Sex Assigned at Not on file Legal Sex Male 11:50 AM EDT Gender Identity Not on file Sexual Orientation Not on file Last Filed Vital Signs Vital Sign Reading Time Taken Comments Blood Pressure 140/82 03/08/2018 8:41 AM EDT Pulse - - Temperature - - Respiratory Rate - - Oxygen Saturation - - Inhaled Oxygen Concentration - - Weight - - Height - - Body Mass Index - - Plan of Treatment Health Maintenance Due Date Last Done Comments Adult Td,Tdap Booster 1963 LIPID PANEL 1963 DEPRESSION SCREENING 1975 SMOKING Hx and SMOKELESS TOBACCO SCREENING 1976 HEPATITIS C SCREENING 1981 HIV ONE-TIME SCREENING (18-6 5 YEARS) 1981 COLOGUARD 2008 COLONOSCOPY 2008 COLORECTAL CANCER SCREENING 2008 FIT TEST 2008 FOBT 2008 SIGMOIDOSCOPY 2008 VIRTUAL COLONOSCOPY 2008 PNEUMOCOCCAL VACCINES (50+ years) (1 of 1 - PCV) 2013 ZOSTER VACCINES (1 of 2) 2013 INFLUENZA VACCINE (#1) 2025 , 05/19/2016 COVID-19 VACCINE (2 - 2024-2 6 season) 2025 12/15/2020 RSV VACCINE (1 - 1-dose 75+ series) 2038 HEPATITIS A VACCINES Aged Out No long er eligible based on patient's age to complete this topic HIB VACCINES Aged Out No longer eligi ble based on patient's age to complete this topic MENINGOCOCCAL VACCINES (ACWY) Aged Out No longer eligible based on patient's age to complete this topic MENINGOCOCCAL VACCINES (B) Aged Out N o longer eligible based on patient's age to complete this topic Medical Devices Not on file Insurance MEDICARE PART A & B [facility] MEDICARE REPLACEMENT MEDICARE PART A & B [employer] PPO MEDICARE REPLACEMENT Member Subscriber Plan / Payer (Ef fective 2022-Present) Name:Melissa Gallagher Relation to Subscriber:Self Name:Melissa Gallagher Payer ID:Not on file Group ID:Not on file Type:Medicare Address: [address] MEDICARE PART A & B [employer] PPO MEDICARE REPLACEMENT MEDICARE PART A & B O MEDICARE REPLACEMENT MEDICARE PART A & B [address] [place], [place] [id number] MEDICARE REPLACEMENT MEDICARE PART A & B PPO MEDICARE REPLACEMENT MEDICARE PART A & B [address] [place], [place] [id number] MEDICARE REPLACEMENT MEDICARE PART A & B [facility] MEDICARE REPLACEMENT MEDICARE PART A & B [facility] PPO MEDICARE REPLACEMENT Care Teams Car Cleaner Relationship Specialty Start Date End Date Nga Lee MD [address] [facility] [address] [place] [address] PCP - General 02/25/18 Additional Source Comments The information contained in this document represents components of the legal health record. It is not the complete legal health record.[facility]
--- OUTSIDE RECORDS SUMMARY | 2025-06-07 12:20 | XMS_ITS | Encounter Summary ---
Author Organization [facility] Address [address] [place] [address] Phone Care Team Providers Care Pageant Director Name Role Phone Nga Lee MD Primary Care Provider Encounter Details Date Type Department Care Team (Latest Contact Info) Description 02/25/2018 Transcribe Orders [facility] [address] [facility] 3rd Floor, [address] [place] [address] Lian Thomas MD [address] [facility] [address] [place] [address] Chest pain, unspecified type (Primary Dx) Social [...] Primary documented in this encounter Care Teams Pageant Director Relationship Specialty Start Date End Date Nga Lee MD [address] [facility] [address] [facility] [address] [place] [address] PCP - General 02/25/18 documented as of this encounter Additional Source Comments The information contained in this document represents components of the legal health record. It is not the complete legal health record.[facility]
--- OUTSIDE RECORDS SUMMARY | 2025-06-07 12:20 | XMS_ITS | Encounter Summary ---
Author Organization [facility] Address [address] [place] [address] Phone Care Team Providers Care Commercial Management Accountant Name Role Phone Nga Lee MD Primary Care Provider Encounter Details Date Type Department Care Team (Latest Contact Info) Description 03/08/2018 Ancillary Orders [facility] [address] [facility] 3rd Floor, [address] [place] [address] Lian Thomas MD [address] [facility] 1 [place] [address] Chest pain, unspecified type Social History Tobacco Use Types Packs/Day Years Used Date Smoking Tobacco: Never Assessed Sex and Gender Information Value Date Recorded Sex Assigned at Not on file Legal Sex Male 11:50 AM EDT Gender Identity Not on file Sexual Orientation Not on file documented as of this encounter Plan of Treatment Not on file documented as of this encounter Results * NC Myocardial Perfusion Stress Single (03/08/2018 8:42 AM EDT) Nuc Stress EF 41 % LV Systolic Volume Index 62 mL/m2 LV Diastolic Volume Index 105 mL/m2 Anatomical Region Laterality Modality Heart Ultrasound Narrative 03/11/2018 2:05 PM EDT Normal study. There is no evidence of myocardial infarction or ischemia. Normal LV size and function with no regional wall motion abnormalities. Very low likelihood of hemodynamically significant coronary artery disease. Low risk study for myocardial events or cardiac in the next two years. Nuclear Study Quality Overall image quality is good. Stress only study. Tc99m sestamibi administered at peak exercise. There are no artifacts present. Study successfully gated. Response to Stress Patient exercised for 10:50 minutes on a Josh protocol achieving 13.4 METs. Test terminated due to fatigue. Maximum heart rate achieved was 150 bpm which represents 90% of the MPHR. 1. Baseline EKG showed normal sinus rhythm, there are tall narrow T waves in the anterior leads. These findings are similar to previous EKG. No ischemic EKG changes with exercise. 2. Patient had 5-6/10 chest pain at peak exercise that spontaneously resolved by 4 minutes into recovery. 3. Blood pressure at baseline was normal. At peak exercise, blood pressure was 226/60 but it normalized prior to discharge from the stress lab. Good functional capacity for age. 4. Few PVCs and PACs noted. Conclusion: No ischemic EKG changes noted but he did have chest pain at peak of exercise that resolved in recovery. Nuclear images pending and will be reported separately. Anh Valentino RADIOLOGY INTERVENTIONAL PHYSICIAN . Stress Function Comments Post-stress ejection fraction was 41%. Stress end diastolic index: 105 mL/m2. Stress end systolic index: 62 mL/m2. Nuclear Prior Study There is no prior study available for comparison. Perfusion Scoring Stress Summed Score: 0 Percent Normal: 0.00% The left ventricular perfusion is normal. Lian Thomas MD CV NM CARDIAC Final Result documented in this encounter Visit Diagnoses Diagnosis Chest pain, unspecified type Chest pain, unspecified type documented in this encounter Care Teams Commercial Management Accountant Relationship Specialty Start Date End Date Nga Lee MD [address] [facility] [address] [place] [id number] PCP - General 02/25/18 documented as of this encounter Additional Source Comments The information contained in this document represents components of the legal health record. It is not the complete legal health record.[facility]
--- OUTSIDE RECORDS SUMMARY | 2025-06-07 12:20 | XMS_ITS | Clinical Summary ---
Author Organization [facility] Address [address] [place] [address] Care Team Providers Care Director Of Payroll Name Role Phone Nga Lee MD Primary Care Provider [phone] Surgical History Surgery Date Site/Laterality Comments CERVICAL [...] - 19+ 3-dose series) 11/05/2016 06/05/2016, 05/05/2016 Depression Screening 09/14/2024 COVID-19 Vaccine (1 - 2023-2 5 season) 2025 Influenza Vaccine (#1) 2025 RSV Immunization Adult [...] age to complete this topic Care Teams Director Of Payroll Relationship Specialty Start Date End Date Nga Lee MD PCP - General Internal Medicine 06/29/18
== END 2025-06-07 10:32 | disposition home or self-care (01) ==
LOC: HO.HPS 10:06
PROVIDERS: PCP Internal Medicine; Visit Provider Hospitalist
DX: Z01.811 Encounter for preprocedural respiratory examination (principal); J45.40 Moderate persistent asthma, uncomplicated; R06.02 Shortness of breath; J31.0 Chronic rhinitis; R05.3 Chronic cough; G47.33 Obstructive sleep apnea (adult) (pediatric)
CPT/HCPCS: 99214

== ENCOUNTER 2025-06-09 09:50 | Outpatient (REF) | payer MEDICARE, SELFPAY ==
[2024-09-22 11:24] VITALS: BP 128/72; BP 142/80; BP 144/74; BMI 25.4
--- NOTE | ~2025-06-09 | XR_ITS ---
EXAMINATION: XR CHEST CLINICAL INFORMATION: R06.02 - Shortness of breath COMPARISON: September 29, 2022. TECHNIQUE: PA and lateral views FINDINGS: Hyperinflated lungs. No consolidation, pleural effusion or pneumothorax. Cardiomediastinal silhouette size is normal. Multilevel thoracolumbar spondylosis. Mild S-shaped curvature of the thoracic spine which could be positional. Radiopaque anchors in the left humeral head no fully included in the [id number]. XR/XR chest 2V IMPRESSION: Consider COPD emphysematous type changes without acute airspace disease. Probable status post rotator cuff tendon tear repair, left shoulder. Electronically signed by: Zack oCrdon MD 06/09/2025 10:14 AM EDT
--- OUTSIDE RECORDS SUMMARY | 2025-06-09 10:55 | XMS_ITS | Clinical Summary ---
Author Organization [facility] Address [address] [place] [address] Care Team Providers Care Mixing And Dispensing Supervisor Name Role Phone Unavailable Primary Care Provider Unavailabl e Social History Tobacco Use Types Packs/Day Years Used Date Smoking Tobacco: Never Assessed Sex and Gender Information Value Date Recorded Sex Assigned at Male 12/21/2019 7:33 AM EDT Gender Identity Not on file Sexual Orientation Not on file Plan of Treatment Not on file
--- OUTSIDE RECORDS SUMMARY | 2025-06-09 10:55 | XMS_ITS | Encounter Summary ---
Author Organization [facility] Address [address] [place] [address] Phone Care Team Providers Care Bridge Ironworker Name Role Phone Nga Lee MD Primary Care Provider Encounter Details Date Type Department Care Team (Latest Contact Info) Description 03/08/2018 Ancillary Orders [facility] 22 [facility] 3rd Floor, [address] [place] [address] Lian Thomas MD 230 [facility] 1 [place] [address] Chest pain, unspecified type Social History Tobacco [...] and will be reported separately. 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 Stress Function Comments Post-stress ejection fraction [...] type documented in this encounter Care Teams Bridge Ironworker Relationship Specialty Start Date End Date Nga Lee MD 175 [facility] 200 [place] [phone] PCP - General 02/25/18 documented as of this encounter Additional Source Comments The information contained in this document represents components of the legal health record. It is not the complete legal health record.[facility]
--- OUTSIDE RECORDS SUMMARY | 2025-06-09 10:55 | XMS_ITS | Clinical Summary ---
Author Organization [email or web address] [facility] Address [address] [place] [address] Care Team Providers Care Terrazzo Worker Apprentice Name Role Phone Nga Lee MD Primary Care Provider Surgical History Surgery Date Site/Laterality Comments CERVICAL [...] age to complete this topic Care Teams Terrazzo Worker Apprentice Relationship Specialty Start Date End Date Nga Lee MD PCP - General Internal Medicine 06/29/18
--- OUTSIDE RECORDS SUMMARY | 2025-06-09 10:56 | XMS_ITS | Clinical Summary ---
Author Organization [facility] Address 399 [facility] [address] [place] [address] Phone Care Team Providers Care Tooler Name Role Phone Nga Lee MD Primary [...] file Insurance MEDICARE PART A & B [facility] [address] [address] MEDICARE REPLACEMENT MEDICARE PART A & B [employer] PPO MEDICARE REPLACEMENT Member Subscriber Plan / Payer (Ef fective 2022-Present) Name:Melissa Gallagher Relation to Subscriber:Self Name:Melissa Gallagher Payer ID:Not on file Group ID:Not on file Type:Medicare Address: [address] MEDICARE PART A & B [employer] PPO MEDICARE REPLACEMENT MEDICARE PART A & B O MEDICARE REPLACEMENT MEDICARE PART A & [place] [address] [place], [place] [id number] MEDICARE REPLACEMENT MEDICARE PART A & B PPO MEDICARE REPLACEMENT MEDICARE PART A & B [address] [place], [place] [id number] MEDICARE REPLACEMENT MEDICARE PART A & B [facility] [address] MEDICARE REPLACEMENT MEDICARE PART A & B [facility] PPO MEDICARE REPLACEMENT Care Teams Tooler Relationship Specialty Start Date End Date Nga Lee MD 175 [facility] 200 [place] [address] PCP - General 02/25/18 Additional Source Comments The information contained in this document represents components of the legal health record. It is not the complete legal health record.[facility]
--- OUTSIDE RECORDS SUMMARY | 2025-06-09 10:56 | XMS_ITS | Encounter Summary ---
Author Organization [facility] Address [address] [place] [address] Phone Care Team Providers Care Fill Manager Name Role Phone Nga Lee MD Primary Care Provider Encounter Details Date Type Department Care Team (Latest Contact Info) Description 02/25/2018 Transcribe Orders [facility] 22 [facility] 3rd Floor, [address] [place] [address] Lian Thomas MD 230 [facility] 1 [place] [address] Chest pain, unspecified type (Primary Dx) Social [...] Primary documented in this encounter Care Teams Fill Manager Relationship Specialty Start Date End Date Nga Lee MD [address] [facility] 200 [place] [phone] PCP - General 02/25/18 documented as of this encounter Additional Source Comments The information contained in this document represents components of the legal health record. It is not the complete legal health record.[facility]
== END 2025-06-09 09:51 | disposition home or self-care (01) ==
LOC: HO.XRAY 09:50
PROVIDERS: PCP Internal Medicine; Visit Provider Hospitalist
DX: R06.02 Shortness of breath (principal)
CPT/HCPCS: 71046

== ENCOUNTER → 2025-06-09 09:55 | Outpatient (BNV) | payer MEDICARE, SELFPAY ==
[2024-09-22 11:24] VITALS: BP 128/72; BP 142/80; BP 144/74; BMI 25.4
== END ==
PROVIDERS: PCP Internal Medicine; Visit Provider Radiology Diagnostic Radiology
DX: R06.02 Shortness of breath (principal)
CPT/HCPCS: 71046

== ENCOUNTER 2025-07-06 11:06 | Outpatient (REF) | payer MEDICARE, MEDICAID, SELFPAY ==
[2024-09-22 11:24] VITALS: BP 128/72; BP 142/80; BP 144/74; BMI 25.4
--- NOTE | ~2025-07-06 | XR_ITS ---
CLINICAL HISTORY: M17.11 - Unilateral primary osteoarthritis, right knee 2 view right knee and 1 view standing bilateral knee Comparison: DX - XR KNEE RT 3V - 09/12/24 09:08 EST Findings: Remote right posteromedial tibial plateau fracture is present with 5 mm depression, similar to prior exam. Mild right medial femorotibial joint space narrowing is seen. The left femorotibial joint space is preserved. Small right knee joint effusion is present. IMPRESSION: 1. Remote right posteromedial tibial plateau fracture with 5 mm depression, similar to prior exam. 2. Small right knee joint effusion. This document has been electronically signed by: Lauren Hollingsworth on 07/07/2025 10:40:53
--- OUTSIDE RECORDS SUMMARY | 2025-07-06 14:47 | XMS_ITS | Encounter Summary ---
Author Organization [facility] Address [address] [place] [address] Phone Care Team Providers Care Kiln Transfer Operator Name Role Phone Nga Lee MD Primary Care Provider Encounter Details Date Type Department Care Team (Latest Contact Info) Description 03/08/2018 Ancillary Orders [facility] 22 [facility] 3rd Floor, [address] [place] [address] Lian Thomas MD 230 [facility] 1 [place] [address] Chest pain, unspecified type Social History Tobacco [...] and will be reported separately. 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 Stress Function Comments Post-stress ejection fraction [...] type documented in this encounter Care Teams Kiln Transfer Operator Relationship Specialty Start Date End Date Nga Lee MD 175 [facility] 200 [place] [phone] PCP - General 02/25/18 documented as of this encounter Additional Source Comments The information contained in this document represents components of the legal health record. It is not the complete legal health record.[facility]
--- OUTSIDE RECORDS SUMMARY | 2025-07-06 14:48 | XMS_ITS | Clinical Summary ---
Author Organization [facility] [employer] [facility] Address [address] [place] [address] Care Team Providers Care Harbor Engineer Name Role Phone Unavailable Primary Care Provider Unavailabl e Social History Tobacco Use Types Packs/Day Years Used Date Smoking Tobacco: Never Assessed Sex and Gender Information Value Date Recorded Sex Assigned at Male 12/21/2019 7:33 AM EDT Gender Identity Not on file Sexual Orientation Not on file Plan of Treatment Not on file
--- OUTSIDE RECORDS SUMMARY | 2025-07-06 14:48 | XMS_ITS | Clinical Summary ---
Author Organization [facility] Address [address] [facility] [address] [place] [address] Phone Care Team Providers Care Cooperer Name Role Phone Nga Lee MD Primary [...] file Insurance MEDICARE PART A & B [facility] MEDICARE REPLACEMENT MEDICARE PART A & B [employer] PPO MEDICARE REPLACEMENT Member Subscriber Plan / Payer (Ef fective 2022-Present) Name:Melissa Gallagher Relation to Subscriber:Self Name:Melissa Gallagher Payer ID:Not on file Group ID:Not on file Type:Medicare Address: [address] MEDICARE PART A & B [employer] PPO MEDICARE REPLACEMENT MEDICARE PART A & B O MEDICARE REPLACEMENT MEDICARE PART A & [place] [address] [place] [id number] MEDICARE REPLACEMENT MEDICARE PART A & B PPO MEDICARE REPLACEMENT MEDICARE PART A & B [address] [place], [place] [id number] MEDICARE REPLACEMENT MEDICARE PART A & B [facility] MEDICARE REPLACEMENT MEDICARE PART A & B [facility] PPO MEDICARE REPLACEMENT Care Teams Cooperer Relationship Specialty Start Date End Date Nga Lee MD [address] [facility] 200 [place] [address] PCP - General 02/25/18 Additional Source Comments The information contained in this document represents components of the legal health record. It is not the complete legal health record.[facility]
--- OUTSIDE RECORDS SUMMARY | 2025-07-06 14:48 | XMS_ITS | Clinical Summary ---
Author Organization [employer] [facility] Address [address] [place] [address] Care Team Providers Care Loss Prevention Coordinator Name Role Phone Nga Lee MD Primary Care Provider [phone] Surgical History Surgery Date Site/Laterality Comments CERVICAL [...] age to complete this topic Care Teams Loss Prevention Coordinator Relationship Specialty Start Date End Date Nga Lee MD PCP - General Internal Medicine 06/29/18
--- OUTSIDE RECORDS SUMMARY | 2025-07-06 14:48 | XMS_ITS | Encounter Summary ---
Author Organization [facility] Address [address] [place] [address] Phone Care Team Providers Care Alignment Technician Name Role Phone Nga Lee MD Primary Care Provider Encounter Details Date Type Department Care Team (Latest Contact Info) Description 02/25/2018 Transcribe Orders [facility] 22 [facility] 3rd Floor, [address] [place] [address] Lian Thomas MD 230 [facility] 1 [place] [address] Chest pain, unspecified type (Primary Dx) Social [...] Primary documented in this encounter Care Teams Alignment Technician Relationship Specialty Start Date End Date Nga Lee MD 175 [facility] 200 [place] [address] PCP - General 02/25/18 documented as of this encounter Additional Source Comments The information contained in this document represents components of the legal health record. It is not the complete legal health record.[facility]
== END 2025-07-06 11:07 | disposition home or self-care (01) ==
LOC: HO.HOSX 11:06
PROVIDERS: PCP Internal Medicine
DX: S82.141S Displaced bicondylar fracture of right tibia, sequela (principal); M17.11 Unilateral primary osteoarthritis, right knee; X58.XXXS Exposure to other specified factors, sequela
CPT/HCPCS: 73562

== ENCOUNTER 2025-07-06 11:06 | Outpatient (AMB) | payer OTHER, MEDICAID, SELFPAY ==
[2024-09-22 11:24] VITALS: BP 128/72; BP 142/80; BP 144/74; BMI 25.4
[2025-07-06 11:15] VITALS: BMI 25.0
--- NOTE | 2025-07-06 11:15 | A.OFFVIS_ITS ---
Vital Signs 07/06/25 11:15 Height 5 ft 9 in Weight 169 lb BMI 25.0 Intake Visit Reasons: OV- Rt Knee s/p Tibial Plateau Fx last inj 10/10/24 Intake Note: Melissa is a 59 year old male who presents today for a follow up status post Right Tibial Plateau Fracture, DOI: 04/07/24. Patient was last seen by Dr. Guevara on 10/10/24. At that time a medial unloading custom brace was ordered. Patient was also given a right knee cortisone injection. Pt states he is only able to walk on his leg if he is wearing the brace. Pt states without the brace he gets severe sharp pain. Pt states he has pain all the time. Allergies No Known Allergies Allergy (Verified 07/06/25 11:17) [facility] Medical History Mood disorder Chronic cough Chronic rhinitis Asthma Vitamin D deficiency Encounter for screening for malignant neoplasm of prostate Coronary artery disease Overweight (BMI 25.0-29.9) Seborrheic dermatitis of scalp Cervical disc disease Cardiac murmur Lumbar degenerative disc disease Pure hypercholesterolemia Benign essential hypertension Obstructive sleep apnea Diarrhea Anorexia Nausea Abdominal pain Surgical History History of cardiac cath Hx of colonoscopy History of esophagogastroduodenoscopy (EGD) History of heart artery stent History of fusion of cervical spine S/P rotator cuff surgery Family History Father Hypertension Mother Hypertension Paternal Uncle Colon cancer Social History Housing: House Alcohol intake: current Alcohol intake frequency: a few times a week Alcohol type: beer Patient Tobacco Use Status: Never used Tobacco e-Cigarette/Vaping Use: Never Used Second Hand Smoke Exposure: Yes Substance Use Type: Marijuana service: Yes ([employer]) Current occupational status: disabled 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 Trace effusion 0-135 degrees of motion Tenderness to palpation medial femoral condyle and posteromedial tibial plateau. Assessment & Plan Assessment & Plan (1) Tibial plateau fracture, right: Code(s): S82.141A - Displaced bicondylar fracture of right tibia, initial encounter for closed fracture Category: Medical Qualifiers: Encounter type: sequela Fracture type: closed Qualified Code(s): S82.141S - Displaced bicondylar fracture of right tibia, sequela Plan 1. Right knee tibial plateau fracture Date of injury 04/07/2024 Patient appears to be recovering well from his injury Patient is educated about the typical recovery course At this time, due to the patient's ongoing discomfort, and previous discussions with Dr. Guevara, I feel it was appropriate to refer him to Dr. Guevara for surgical consult for potential right total knee arthroplasty At this time, patient is informed that he can continue to weight bear as tolerated Patient may continue to wear previously provided a knee brace Patient will follow-up for next available surgical consult with Dr. Guevara, sooner with any acute concerns Orders: Orders XR knee RT 3V 07/06/25 M17.11 - Unilateral primary osteoarthritis, right knee Coding Level of Care Code Est Pt Level 3 (56881) Diagnoses Closed fracture of right tibial plateau, sequela S82.141S Encounter type: sequela Fracture type: closed
== END 2025-07-06 13:10 | disposition home or self-care (01) ==
LOC: HO.HOS 11:07
PROVIDERS: PCP Internal Medicine
DX: S82.141S Displaced bicondylar fracture of right tibia, sequela (principal)
CPT/HCPCS: 99213

== ENCOUNTER → 2025-07-06 11:37 | Outpatient (BNV) | payer OTHER, MEDICAID, SELFPAY ==
[2024-09-22 11:24] VITALS: BP 128/72; BP 142/80; BP 144/74; BMI 25.4
== END ==
PROVIDERS: PCP Internal Medicine; Visit Provider Radiology Vascular & Interventional Radiology
DX: S82.131A Displaced fracture of medial condyle of right tibia, initial encounter for closed fracture (principal); M25.461 Effusion, right knee
CPT/HCPCS: 73562

== ENCOUNTER 2025-07-07 10:07 | Day surgery (SDC) | payer SELFPAY ==
[2024-09-22 11:24] VITALS: BP 128/72; BP 142/80; BP 144/74; BMI 25.4
--- OUTSIDE RECORDS SUMMARY | 2025-06-08 16:57 | XMS_ITS | Clinical Summary ---
Author Organization [facility] Address [address] [facility] [address] [place] [address] Phone Care Team Providers Care Director Recreation Center Name Role Phone Nga Lee MD Primary Care Provider Social History [...] file Insurance MEDICARE PART A & B [facility] MEDICARE REPLACEMENT MEDICARE PART A & B [employer] PPO MEDICARE REPLACEMENT Member Subscriber Plan / Payer (Ef fective 2022-Present) Name:Melissa Gallagher Relation to Subscriber:Self Name:Melissa Gallagher Payer ID:Not on file Group ID:Not on file Type:Medicare Address: [address] MEDICARE PART A & B [employer] PPO MEDICARE REPLACEMENT MEDICARE PART A & B O MEDICARE REPLACEMENT MEDICARE PART A & [place] [address] [place], [id number] MEDICARE REPLACEMENT MEDICARE PART A & B PPO MEDICARE REPLACEMENT MEDICARE PART A & B [address] [place], [id number] MEDICARE REPLACEMENT MEDICARE PART A & B [facility] MEDICARE REPLACEMENT MEDICARE PART A & B [facility] [place] [address] Care Teams Director Recreation Center Relationship Specialty Start Date End Date Nga Lee MD 175 [facility] [address] [place] [address] PCP - General 02/25/18 Additional Source Comments The information contained in this document represents components of the legal health record. It is not the complete legal health record.[facility]
--- OUTSIDE RECORDS SUMMARY | 2025-06-08 16:57 | XMS_ITS | Encounter Summary ---
Author Organization [facility] Address [address] [place] [address] Phone Care Team Providers Care Risk Tech Name Role Phone Nga Lee MD Primary Care Provider Encounter Details Date Type Department Care Team (Latest Contact Info) Description 02/25/2018 Transcribe Orders [facility] [address] [facility] 3rd Floor, [address] [place] [address] Lian Thomas MD [address] [facility] 1 [place] [address] Chest pain, unspecified type (Primary Dx) Social [...] Primary documented in this encounter Care Teams Risk Tech Relationship Specialty Start Date End Date Nga Lee MD [address] [facility] [address] [facility] [address] [place] [address] PCP - General 02/25/18 documented as of this encounter Additional Source Comments The information contained in this document represents components of the legal health record. It is not the complete legal health record.[facility]
--- OUTSIDE RECORDS SUMMARY | 2025-06-08 16:57 | XMS_ITS | Encounter Summary ---
Author Organization [facility] Address [address] [place] [address] Phone Care Team Providers Care Dye Automation Operator Name Role Phone Nga Lee MD Primary Care Provider Encounter Details Date Type Department Care Team (Latest Contact Info) Description 03/08/2018 Ancillary Orders [facility] 22 [facility] 3rd Floor, [address] [place] [address] Lian Thomas MD 230 [facility] 1 [place] [address] Chest pain, unspecified type Social History Tobacco [...] and will be reported separately. Anh Valentino BAG SEWER . Stress Function Comments Post-stress ejection fraction [...] type documented in this encounter Care Teams Dye Automation Operator Relationship Specialty Start Date End Date Nga Lee MD 175 [facility] 200 [place] [phone] PCP - General 02/25/18 documented as of this encounter Additional Source Comments The information contained in this document represents components of the legal health record. It is not the complete legal health record.[facility]
--- OUTSIDE RECORDS SUMMARY | 2025-06-08 16:57 | XMS_ITS | Clinical Summary ---
Author Organization [facility] Address [address] [place] [address] Care Team Providers Care Chief Port Director Name Role Phone Unavailable Primary Care Provider Unavailabl e Social History Tobacco Use Types Packs/Day Years Used Date Smoking Tobacco: Never Assessed Sex and Gender Information Value Date Recorded Sex Assigned at Male 12/21/2019 7:33 AM EDT Gender Identity Not on file Sexual Orientation Not on file Plan of Treatment Not on file
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
[2025-07-07 11:23] VITALS: BMI 23.3
[2025-07-07 11:35] VITALS: BP 173/91; PULSE 90; RESP 16; TEMP 36.9; O2SAT 98
[2025-07-07] MEDS: Lactated Ringers 1,000 ML 100 ML IVCONT (11:43)
--- NOTE | 2025-07-07 11:46 | P.HPSUR_ITS ---
Pre-Procedural Eval Section A - 24 Hr Update-Section A only Date of Service: 07/07/25 Section B - Complete if H&P > 30 days Chief Complaint: hx colon polyps,screening Relevant Family History (Specify if Yes): Yes Relevant Social History: None Present Medications: see Short Stay Collaborative assessment Medical History: Significant History (Asthma Vitamin D deficiency Encounter for screening for malignant neoplasm of prostate COVID-19 vaccine series completed Left ankle pain Left foot pain Coronary artery disease Overweight (BMI 25.0- 29.9) Seborrheic dermatitis of scalp Cervical disc disease Cardiac murmur Lumbar degenerative disc dise) History of Previous Operations: Relevant previous surgery/procedure and date(s) (History of cardiac cath Hx of colonoscopy History of esophagogastroduodenoscopy (EGD) History of heart artery stent History of fusion of cervical spine S/P rotator cuff surgery) Allergies: Allergies Allergy/AdvReac Type Severity Reaction Status Date / Time No Known Allergies Allergy Verified 07/06/25 11:17 Review of Systems Sugical H&P ROS: Negative: Constitution, Cardiovascular, Respiratory and Gastrointestinal Exam Surgical H&P Exam: Normal: Heart, Normal: Lungs, Normal: Extremities and Normal: Abdomen Plan Diagnosis/Plan: Change (proceed with EGD and colon ) I have reviewed the history and physical and performed a pertinent physical examination on my patient. No changes have occurred unless specified. Time Spent With Patient Time: Total time managing care of this patient today ____ minutes.
[2025-07-07 13:24] VITALS: BP 123/74; PULSE 70; RESP 16; TEMP 36.1; O2SAT 97
--- NOTE | 2025-07-07 13:24 | P.OPN-COLO_ITS ---
Colonoscopy Operative Note Operative Note Date of Service: 07/07/25 Narrative: COLONOSCOPY TILL CECUM WITH BIOPSIES, SNARE POLYPECTOMY AND HEMOCLIP PLACEMENT Pre-op diagnosis: Surveillance for colon polyps. Post-op diagnosis:? Colon polyps, Diverticulosis, hemorrhoids Endoscopist:? Toña Garcia MD Anesthesia:?MAC Consent: Indications for the procedure and potential complications of bleeding, perforation, reaction to medications and missed diagnosis were discussed with the patient and informed consent was obtained. Instrument: Olympus CF H 190 L variable stiffness adult colonoscope Monitoring: Vital signs and clinical assessment, intermittent blood pressure monitoring, continuous EKG monitoring, Pulse oximetry and Carbon Dioxide monitoring were done throughout the procedure. Please see anesthesia flowsheet. Colon withdrawl time was 38 minutes. Procedure: The patient was placed in the left lateral decubitis position and pre-procedure medications were administered. After a digital rectal examination of the ano-rectum, the video colonoscope was inserted into the rectum and advanced through the colon to the cecum. The colonoscope was slowly withdrawn in a retrograde panoramic fashion and the colon mucosa was carefully examined including a retroflexed view of the rectum. Findings and interventions are described below. Procedure Difficulty: without difficulty Findings: Terminal Ileum: Not evaluated Cecum: Normal Ascending Colon: Normal Transverse Colon: A 10 mm sessile polyp - removed with a cold snare. Polypectomy site was closed with 1 hemoclip due to minor bleeding. Descending Colon: Moderate diverticulosis Sigmoid Colon: A 2 cms sessile polyp at 50 cms at a bend and was difficult to snare. Pt was placed in the supine position and polyp was removed with a hot snare. Two 8 to 10 mm sessile polyps - removed with a hot snare. Severe diverticulosis with luminal narrowing Rectum: Normal Ano-rectum: Moderate internal hemorrhoids Colon preparation: Good after some irrigation. [place] Bowel Preparation Scale Right colon; 2 Transverse colon: 2 Left colon; 2 (0 = Unprepared colon segment with mucosa not seen due to solid stool that cannot be cleared. 1 = Portion of mucosa of the colon segment seen, but other areas of the colon segment not well seen due to staining, residual stool and/or opaque liquid. 2 = Minor amount of residual staining, small fragments of stool and/or opaque liquid, but mucosa of colon segment seen well. 3 = Entire mucosa of colon segment seen well with no residual staining, small fragments of stool or opaque liquid) Impression and Post Procedure Diagnosis: Colonoscopy Findings: Four medium sized polyps were removed Random biopsies were obtained from right and left colon to check for microscopic colitis. Moderate diverticulosis seen in the left colon Moderate hemorrhoids on retroflexed exam. Plan: Pt has a FU appointment on 10/12/[address] Garcia Repeat Colonoscopy in 3 years if polyps are adenomatous and due to history of adenomatous colon polyps.. Above findings were reviewed with the patient and relevant handouts were given and the discharge area. BIOPSIES SHOWED: A. Colon, transverse, polyp: Tubular adenoma; negative for high-grade dysplasia and carcinoma. B. Colon, right, biopsy: Colonic mucosa with lymphoid aggregates and no specific change; no evidence of microscopic colitis. C. Colon, sigmoid at 50 cm, polyps: Tubular adenomas (3 pieces); negative for high-grade dysplasia and carcinoma. D. Colon, left, biopsy: Colonic mucosa with lymphoid aggregates and no specific change; no evidence of microscopic colitis Letter sent to the patient with biopsy results. Patient was placed on the colonoscopy recall list for repeat colonoscopy in 3 years.
[2025-07-07 13:41] VITALS: BP 133/82; PULSE 72; RESP 16; TEMP 36.1; O2SAT 95
== END 2025-07-07 14:04 | disposition home or self-care (01) ==
PROVIDERS: PCP Internal Medicine; Visit Provider Internal Medicine Gastroenterology
PROC: 0DJD8ZZ Inspection of Lower Intestinal Tract, Via Natural or Artificial Opening Endoscopic (ICD-10-PCS; CPT 45378; principal; 2025-07-07 12:00)
DX: Z12.11 Encounter for screening for malignant neoplasm of colon (principal); Z86.0101 Personal history of adenomatous and serrated colon polyps; K64.8 Other hemorrhoids; K57.30 Diverticulosis of large intestine without perforation or abscess without bleeding; D12.5 Benign neoplasm of sigmoid colon; D12.3 Benign neoplasm of transverse colon
CPT/HCPCS: 45385; 88305; J2003; J2704

== ENCOUNTER → 2025-07-07 10:07 | Outpatient (BNV) | payer MEDICARE, MEDICAID, SELFPAY ==
[2024-09-22 11:24] VITALS: BP 128/72; BP 142/80; BP 144/74; BMI 25.4
== END ==
PROVIDERS: PCP Internal Medicine; Visit Provider Internal Medicine Gastroenterology
DX: Z12.11 Encounter for screening for malignant neoplasm of colon (principal); Z86.0100 Personal history of colon polyps, unspecified; K63.5 Polyp of colon; K57.90 Diverticulosis of intestine, part unspecified, without perforation or abscess without bleeding; K64.8 Other hemorrhoids
CPT/HCPCS: 45380; 45385

== ENCOUNTER → 2025-07-18 07:55 | Outpatient (REF) | payer MEDICAID, SELFPAY ==
[2024-09-22 11:24] VITALS: BP 128/72; BP 142/80; BP 144/74; BMI 25.4
--- NOTE | ~2025-07-18 | NM_ITS ---
EXAMINATION: OR RADIONUCLIDE SOLID FOOD GASTRIC EMPTYING 4-HOUR STUDY CLINICAL INFORMATION: Early satiety. Rule out gastroparesis. COMPARISON: None TECHNIQUE: A standard meal consisting of 4 oz of Egg Beaters brand tagged with 0.98 mCi Tc-99m Sulfur Colloid, 8 oz water and 2 slices of toast with jelly was administered orally to the patient. Images were obtained using a dual head gamma camera in the anterior and posterior projections over of the stomach immediately post ingestion and at hourly intervals up to 3 hours post ingestion. 4 hour imaging not obtained due to near complete emptying at 3 hours. The anterior and posterior counts at each time interval were averaged using the geometric mean and expressed as percentage of the immediate post ingestion counts. FINDINGS: There is good visualization of activity in the stomach immediately post ingestion. As the study progresses, there is good clearance of activity from the stomach and visualization of progressively increasing small bowel activity. By the end of the study, there is almost no retention noted in the stomach. Retention in the stomach at each time interval was: 1 hour 72% (normal 37%-90%) 2 hours 34% (normal 30%-60%) 3 hours 4% OR/OR gastric emptying study IMPRESSION: Normal solid food gastric emptying study. No evidence of gastroparesis. For solid meal, rapid gastric emptying is less than 30% at 60 minutes. Delayed gastric emptying criteria is more than 60% remaining at 120 minutes or more than 10% at 240 minutes. The 4-hour value is the best discriminator of a normal or abnormal result). Gastric emptying study grading per JNMT Consensus Recommendations in 2008 (https://tech.snmjournals.org/content/36/44) Grade 1 (mild retention): 11-20% at 4h Grade 2 (moderate retention): 21-35% at 4h Grade 3 (severe retention): 36-50% at 4h Grade 4 (very severe retention): >50% retention at 4h Electronically signed by: Vi Angela MD 07/18/2025 12:00 PM [facility]
--- OUTSIDE RECORDS SUMMARY | 2025-07-18 07:57 | XMS_ITS | Encounter Summary ---
Author Organization [facility] Address [address] [place] [address] Phone Care Team Providers Care Airborne Electronics Analyst Name Role Phone Nga Lee MD Primary Care Provider Encounter Details Date Type Department Care Team (Latest Contact Info) Description 03/08/2018 Ancillary Orders [facility] [address] [facility] 3rd Floor, [address] [place] [address] Lian Thomas MD 230 [facility] 1 [place] [address] Chest pain, unspecified type Social History Tobacco [...] and will be reported separately. Anh Valentino CALCINE FURNACE TENDER . Stress Function Comments Post-stress ejection fraction [...] type documented in this encounter Care Teams Airborne Electronics Analyst Relationship Specialty Start Date End Date Nga Lee MD 175 [facility] 200 [place] [phone] PCP - General 02/25/18 documented as of this encounter Additional Source Comments The information contained in this document represents components of the legal health record. It is not the complete legal health record.[facility]
--- OUTSIDE RECORDS SUMMARY | 2025-07-18 07:58 | XMS_ITS | Clinical Summary ---
Author Organization [facility] Address [address] [place] [address] Care Team Providers Care Internal Salesperson Name Role Phone Unavailable Primary Care Provider Unavailabl e Social History Tobacco Use Types Packs/Day Years Used Date Smoking Tobacco: Never Assessed Sex and Gender Information Value Date Recorded Sex Assigned at Male 12/21/2019 7:33 AM EDT Gender Identity Not on file Sexual Orientation Not on file Plan of Treatment Not on file
--- OUTSIDE RECORDS SUMMARY | 2025-07-18 07:58 | XMS_ITS | Encounter Summary ---
Author Organization [facility] Address [address] [place] [address] Phone Care Team Providers Care Senior Business Process Analyst Name Role Phone Nga Lee MD Primary Care Provider Encounter Details Date Type Department Care Team (Latest Contact Info) Description 02/25/2018 Transcribe Orders [facility] [address] [facility] 3rd Floor, [address] [place] [address] Lian Thomas MD 230 [facility] 1 [place] [address] Chest pain, unspecified type (Primary Dx) Social [...] Primary documented in this encounter Care Teams Senior Business Process Analyst Relationship Specialty Start Date End Date Nga Lee MD [address] [facility] [address] [place] [address] PCP - General 02/25/18 documented as of this encounter Additional Source Comments The information contained in this document represents components of the legal health record. It is not the complete legal health record.[facility]
--- OUTSIDE RECORDS SUMMARY | 2025-07-18 07:58 | XMS_ITS | Clinical Summary ---
Author Organization [facility] Address [address] [facility] [address] [place] [address] Phone Care Team Providers Care Level Vial Inspector Name Role Phone Nga Lee MD Primary Care Provider [phone] Social History Tobacco Use Types Packs/Day Years [...] file Insurance MEDICARE PART A & B [facility] MEDICARE REPLACEMENT MEDICARE PART A & B [employer] PPO MEDICARE REPLACEMENT Member Subscriber Plan / Payer (Ef fective 2022-Present) Name:Melissa Gallagher Relation to Subscriber:Self Name:Melissa Gallagher Payer ID:Not on file Group ID:Not on file Type:Medicare Address: [id number] MEDICARE PART A & B [employer] PPO MEDICARE REPLACEMENT MEDICARE PART A & B O MEDICARE REPLACEMENT MEDICARE PART A & [place] [address] [place] [id number] MEDICARE REPLACEMENT MEDICARE PART A & B PPO MEDICARE REPLACEMENT MEDICARE PART A & B [address] [place], [place] [id number] MEDICARE REPLACEMENT MEDICARE PART A & B [facility] MEDICARE REPLACEMENT MEDICARE PART A & B [facility] PPO MEDICARE REPLACEMENT Care Teams Level Vial Inspector Relationship Specialty Start Date End Date Nga Lee MD 175 [facility] 200 [place] [address] PCP - General 02/25/18 Additional Source Comments The information contained in this document represents components of the legal health record. It is not the complete legal health record.[facility]
--- OUTSIDE RECORDS SUMMARY | 2025-07-18 07:58 | XMS_ITS | Clinical Summary ---
Author Organization [facility] Address [address] [place] [address] Care Team Providers Care Retail Management Trainee Name Role Phone Nga Lee MD Primary Care Provider [phone] Surgical History Surgery Date Site/Laterality Comments CERVICAL [...] age to complete this topic Care Teams Retail Management Trainee Relationship Specialty Start Date End Date Nga Lee MD PCP - General Internal Medicine 06/29/18
== END ==
LOC: HO.NUCMED 07:55
PROVIDERS: PCP Internal Medicine; Visit Provider Internal Medicine Gastroenterology
DX: R68.81 Early satiety (principal)
CPT/HCPCS: 78264; A9541

== ENCOUNTER → 2025-07-18 07:56 | Outpatient (BNV) | payer MEDICAID, SELFPAY ==
[2024-09-22 11:24] VITALS: BP 128/72; BP 142/80; BP 144/74; BMI 25.4
== END ==
PROVIDERS: PCP Internal Medicine; Visit Provider Radiology Diagnostic Radiology
DX: R68.81 Early satiety (principal)
CPT/HCPCS: 78264

== ENCOUNTER 2025-07-21 12:56 | Outpatient (REF) | payer MEDICAID, SELFPAY ==
[2024-09-22 11:24] VITALS: BP 128/72; BP 142/80; BP 144/74; BMI 25.4
--- NOTE | ~2025-07-21 | CT_ITS ---
EXAMINATION: CT ABDOMEN AND PELVIS WITH CONTRAST CLINICAL INFORMATION: Generalized abdominal pain COMPARISON: None available. TECHNIQUE: Multidetector volumetric images were obtained from the superior aspect of the liver through the pubic symphysis following administration 85 mL of Omnipaque 350 intravenous contrast. Sagittal and coronal reformatted images were obtained on the technologist's workstation. Oral contrast: Yes This CT examination was performed using dose optimization techniques as appropriate, variously including the following: *Automated exposure control *Adjustment of mA and/or kV according to patient size (this includes techniques or standardized protocols for targeted exams where dose is matched to indication/reason for exam; i.e. extremities or head) *Use of iterative reconstruction technique FINDINGS: LUNG BASES: Visualized lung bases are clear. No pericardial or pleural effusion. LIVER, GALLBLADDER, AND BILIARY TREE: 5 mm hypodense lesion in the right lobe, too small to characterize, statistically probably a cyst. No biliary duct dilatation. The gallbladder is unremarkable with no evidence of radiopaque gallstones, gallbladder wall thickening, or obvious pericholecystic inflammatory changes. PANCREAS: Unremarkable. SPLEEN: Unremarkable. ADRENAL GLANDS: Unremarkable. KIDNEYS AND URETERS: The kidneys are normal in size, shape, and attenuation. No hydronephrosis, hydroureter, or calculi seen. No perinephric stranding. BLADDER: Unremarkable. GASTROINTESTINAL TRACT: Stomach is partially distended with contrast in stomach, limiting evaluation. No abnormal dilatation of the large or small bowel. The ingested oral contrast is extending to the bowel to the level of the distal descending colon. No pericolonic inflammatory changes are seen. The sigmoid colon is nondistended. Appendix appears unremarkable. Peritoneum: No free fluid. No free air. No mesenteric inflammatory changes seen. ABDOMINAL WALL: No significant hernia is appreciated. LYMPH NODES: No pathologically enlarged lymph nodes. VASCULAR: Atherosclerotic vascular calcification. No aortic aneurysmal dilatation. PELVIC VISCERA: Prostate measures 4.6 cm transverse. OSSEOUS STRUCTURES: No acute or suspicious osseous abnormality seen. CT/CT abdomen pelvis w IV con IMPRESSION: * No acute intra-abdominal findings identified. Cause of the patient's symptoms has not been determined. * 5 mm hypodense liver lesion, too small to characterize, more commonly seen as a cyst. * Stomach is partially distended, with the luminal contents, limiting evaluation. Nonobstructive bowel gas pattern. * Additional findings and details as above. Fleischner guidelines were followed. Electronically signed by: Eben Garay MD 07/21/2025 03:40 PM [facility]
[2025-07-21] MEDS: Barium Sulfate Oral (Berry) 450 ML ORAL.SUSP 900 ML PO (13:29)
--- OUTSIDE RECORDS SUMMARY | 2025-07-21 15:07 | XMS_ITS | Clinical Summary ---
Author Organization [facility] Address [address] [place] [address] Care Team Providers Care Technology Methodology Consultant Name Role Phone Nga Lee MD Primary Care Provider [phone] Surgical History Surgery Date Site/Laterality Comments CERVICAL [...] age to complete this topic Care Teams Technology Methodology Consultant Relationship Specialty Start Date End Date Nga Lee MD PCP - General Internal Medicine 06/29/18
--- OUTSIDE RECORDS SUMMARY | 2025-07-21 15:07 | XMS_ITS | Encounter Summary ---
Author Organization [facility] Address [address] [place] [address] Phone Care Team Providers Care Baby Nurse Name Role Phone Nga Lee MD Primary Care Provider Encounter Details Date Type Department Care Team (Latest Contact Info) Description 02/25/2018 Transcribe Orders [facility] [address] [facility] 3rd Floor, [address] [place] [address] Lian Thomas MD 230 [facility] 1 [place] [address] Chest pain, unspecified type (Primary Dx) Social [...] Primary documented in this encounter Care Teams Baby Nurse Relationship Specialty Start Date End Date Nga Lee MD [address] [facility] [address] [facility] 200 [place] [address] PCP - General 02/25/18 documented as of this encounter Additional Source Comments The information contained in this document represents components of the legal health record. It is not the complete legal health record.[facility]
--- OUTSIDE RECORDS SUMMARY | 2025-07-21 15:07 | XMS_ITS | Encounter Summary ---
Author Organization [facility] Address [address] [place] [address] Phone Care Team Providers Care Vp Respiratory Name Role Phone Nga Lee MD Primary Care Provider Encounter Details Date Type Department Care Team (Latest Contact Info) Description 03/08/2018 Ancillary Orders [facility] [address] [facility] 3rd Floor, [address] [place] [address] Lian Thomas MD 230 [facility] 1 [place] [address] Chest pain, unspecified type Social History Tobacco [...] and will be reported separately. Anh Valentino CARDIOLOGY SPECIALIST . Stress Function Comments Post-stress ejection fraction [...] type documented in this encounter Care Teams Vp Respiratory Relationship Specialty Start Date End Date Nga Lee MD 175 [facility] 200 [place] [phone] PCP - General 02/25/18 documented as of this encounter Additional Source Comments The information contained in this document represents components of the legal health record. It is not the complete legal health record.[facility]
--- OUTSIDE RECORDS SUMMARY | 2025-07-21 15:07 | XMS_ITS | Clinical Summary ---
Author Organization [facility] Address [address] [place] [address] Care Team Providers Care Circus Trainer Name Role Phone Unavailable Primary Care Provider Unavailabl e Social History Tobacco Use Types Packs/Day Years Used Date Smoking Tobacco: Never Assessed Sex and Gender Information Value Date Recorded Sex Assigned at Male 12/21/2019 7:33 AM EDT Gender Identity Not on file Sexual Orientation Not on file Plan of Treatment Not on file
--- OUTSIDE RECORDS SUMMARY | 2025-07-21 15:07 | XMS_ITS | Clinical Summary ---
Author Organization [facility] Address [address] [facility] [address] [place] [address] Phone Care Team Providers Care Patient Registrar Name Role Phone Nga Lee MD Primary [...] patient's age to complete this topic IPV VACCINES Aged Out No longer eligi ble [...] MEDICARE REPLACEMENT MEDICARE PART A & B MEDICARE REPLACEMENT MEDICARE PART A & B O MEDICARE REPLACEMENT MEDICARE PART A & B O MEDICARE REPLACEMENT MEDICARE PART A & B [employer] PPO MEDICARE REPLACEMENT MEDICARE PART A & B [facility] MEDICARE PART A & [facility] Care Teams Patient Registrar Relationship Specialty Start Date End Date Nga Lee MD [address] [address] PCP - General 02/25/18 Additional Source Comments The information contained in this document represents components of the legal health record. It is not the complete legal health record.[facility]
[2025-07-21] MEDS: iohexoL 350 MG/ML 100 ML INFUS..BTL IV (15:22)
[2025-07-21 15:58] LABS: Creatinine POC 0.9 mg/dL (0.5-1.4); GFR POC > 60
== END 2025-07-21 12:57 | disposition home or self-care (01) ==
LOC: HO.CT 12:56
PROVIDERS: PCP Internal Medicine; Visit Provider Internal Medicine Gastroenterology
DX: R10.84 Generalized abdominal pain (principal); R19.7 Diarrhea, unspecified
CPT/HCPCS: 74177; 82565; Q9967

== ENCOUNTER → 2025-07-21 12:58 | Outpatient (BNV) | payer MEDICAID, SELFPAY ==
[2024-09-22 11:24] VITALS: BP 128/72; BP 142/80; BP 144/74; BMI 25.4
== END ==
PROVIDERS: PCP Internal Medicine; Visit Provider Radiology Diagnostic Ultrasound
DX: R14.0 Abdominal distension (gaseous) (principal); K76.9 Liver disease, unspecified
CPT/HCPCS: 74177

== ENCOUNTER 2025-07-31 08:35 | Outpatient (AMB) | payer MEDICARE, MEDICAID, SELFPAY ==
[2024-09-22 11:24] VITALS: BP 128/72; BP 142/80; BP 144/74; BMI 25.4
[2025-07-31 08:38] VITALS: BMI 23.3
--- NOTE | 2025-07-31 08:38 | A.OFFVIS_ITS ---
Vital Signs 07/31/25 08:38 Height 5 ft 9 in Weight 158 lb BMI 23.3 Intake Visit Reasons: OV - Discuss TKA -R TKA w/NE 10/10/25 Intake Note: Melissa is a 59 year old male who presents today for a follow up of his right knee, hx of Right Tibial Plateau Fracture 04/07/24. After this fracture patient was rather non compliant with weight bearing restrictions. Last cortisone injection wa administered 10/10/24 with minimal relief. He would like to discuss Right TKA, and is currently scheduled 10/10/2025. Allergies No Known Allergies Allergy (Verified 07/31/25 08:38) HPI HPI OV - Discuss TKA -R TKA w/NE 10/10/25: Details: Melissa is a 59 year old male who presents today for a follow up of his right knee, hx of Right Tibial Plateau Fracture 04/07/24. After this fracture patient was rather non compliant with weight bearing restrictions. Last cortisone injection wa administered 10/10/24 with minimal relief. He would like to discuss Right TKA, and is currently scheduled 10/10/2025. He uses an unloading brace which is very helpful for him. When he is not using this he has extreme difficulty in ambulation. When using this he can walk cane but has difficulty getting through his day without severe pain. He requires assistance for activ ities of daily living. Feels quality of his life in his ability to ambulate has diminished significantly since his injury over a year ago. [facility] Medical History Mood disorder Chronic cough Chronic rhinitis Asthma Vitamin D deficiency Encounter for screening for malignant neoplasm of prostate Coronary artery disease Overweight (BMI 25.0-29.9) Seborrheic dermatitis of scalp Cervical disc disease Cardiac murmur Lumbar degenerative disc disease Pure hypercholesterolemia Benign essential hypertension Obstructive sleep apnea Diarrhea Anorexia Nausea Abdominal pain Surgical History History of cardiac cath Hx of colonoscopy History of esophagogastroduodenoscopy (EGD) History of heart artery stent History of fusion of cervical spine S/P rotator cuff surgery Family History Father Hypertension Mother Hypertension Paternal Uncle Colon cancer Social History (Reviewed 10/23/25 @ 11:18 by PATRIA [place] Housing: House Alcohol intake: current Alcohol intake frequency: a few times a week Alcohol type: beer Patient Tobacco Use Status: Never used Tobacco e-Cigarette/Vaping Use: Never Used Second Hand Smoke Exposure: Yes Substance Use Type: Marijuana service: Yes ([employer]) Current occupational status: disabled 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 There is no effusion. 0-125 degrees of motion. Mild varus malalignment. Tenderness to palpation medial joint line. Vital Signs: BMI result Body Mass Index 23.3 Results Reviewed Results Reviewed: I personally reviewed relevant radiographs. Posteromedial depressed old tibial plateau fracture Assessment & Plan Assessment & Plan (1) Tibial plateau fracture, right: Code(s): S82.141A - Displaced bicondylar fracture of right tibia, initial encounter for closed fracture Category: Medical Qualifiers: Encounter type: sequela Fracture type: closed Qualified Code(s): S82.141S - Displaced bicondylar fracture of right tibia, sequela Plan: this is a 59-year-old gentleman who has disability and pain secondary to a tibial plateau fracture over 1 year ago. He can not walk without a cane in an unloading brace and we have discussed treatment options. We have exhausted conservative measures and I recommend right knee replacement. I discussed this with him. I explained the procedure as well as the recovery and our expectations. I did discuss the risks, benefits and alternatives of surgery including, but not limited to, the risk of infection, stiffness, need for additional surgery, pain as well as potential medical complications associated with surgery such as cardiac complications, pneumonia, organ failure. He will out to seeing to get preoperative clearance and he has these appointments scheduled. he will see our nurse navigator for his navigation appointment in about 1 month. I answered his questions to the best of my abilities. We will proceed forward accordingly. Coding Level of Care Code Est Pt Level 4 (34198) Diagnoses Closed fracture of right tibial plateau, sequela S82.141S Encounter type: sequela Fracture type: closed
== END 2025-07-31 09:09 | disposition home or self-care (01) ==
LOC: HO.HOS 08:36
PROVIDERS: PCP Internal Medicine; Visit Provider Orthopaedic Surgery
DX: S82.141A Displaced bicondylar fracture of right tibia, initial encounter for closed fracture (principal)
CPT/HCPCS: 99214

== ENCOUNTER → 2025-07-31 08:35 | Outpatient (BNVA) | payer MEDICARE, MEDICAID, SELFPAY ==
[2024-09-22 11:24] VITALS: BP 128/72; BP 142/80; BP 144/74; BMI 25.4
== END ==
PROVIDERS: PCP Internal Medicine; Visit Provider Orthopaedic Surgery
DX: S82.141S Displaced bicondylar fracture of right tibia, sequela (principal); M25.361 Other instability, right knee; M25.561 Pain in right knee; Z71.9 Counseling, unspecified
CPT/HCPCS: 99212

== ENCOUNTER 2025-08-04 07:01 | Outpatient (REF) | payer MEDICARE, MEDICAID, SELFPAY ==
[2024-09-22 11:24] VITALS: BP 128/72; BP 142/80; BP 144/74; BMI 25.4
--- OUTSIDE RECORDS SUMMARY | 2025-08-04 07:04 | XMS_ITS | Clinical Summary ---
Author Organization [facility] Address [address] [place] [address] Care Team Providers Care Rail Car Repairman Name Role Phone Nga Lee MD Primary Care Provider [phone] Surgical History Surgery Date Site/Laterality Comments CERVICAL [...] Depression Screening 09/14/2024 COVID-19 Vaccine (1 - 2024-2 6 season) 2025 Influenza Vaccine (#1) 2025 RSV [...] age to complete this topic Care Teams Rail Car Repairman Relationship Specialty Start Date End Date Nga Lee MD PCP - General Internal Medicine 06/29/18
--- OUTSIDE RECORDS SUMMARY | 2025-08-04 07:04 | XMS_ITS | Encounter Summary ---
Author Organization [facility] Address [address] [place] [address] Phone Care Team Providers Care Director Of Institutional Giving Name Role Phone Nag Lee MD Primary Care Provider [phone] Encounter Details Date Type Department Care Team (Latest Contact Info) Description 03/08/2018 Ancillary Orders [facility] [address] [facility] 3rd Floor, [address] [place] [address] Lian Thomas MD [address] [facility] 1 [place] [address] Chest pain, unspecified type Social History Tobacco [...] and will be reported separately. Anh Valentino SIMULATION EDUCATOR . Stress Function Comments Post-stress ejection fraction [...] type documented in this encounter Care Teams Director Of Institutional Giving Relationship Specialty Start Date End Date Nga Lee MD 175 [facility] [address] [place] [id number] PCP - General 02/25/18 documented as of this encounter Additional Source Comments The information contained in this document represents components of the legal health record. It is not the complete legal health record.[facility]
--- OUTSIDE RECORDS SUMMARY | 2025-08-04 07:04 | XMS_ITS | Clinical Summary ---
Author Organization [facility] Address [address] [facility] [address] [place] [address] Phone Care Team Providers Care Farm Appraiser Name Role Phone Nga Lee MD Primary Care Provider [phone] Social History Tobacco Use Types Packs/Day Years [...] file Insurance MEDICARE PART A & B [facility] MEDICARE REPLACEMENT MEDICARE PART A & B [employer] PPO MEDICARE REPLACEMENT Member Subscriber Plan / Payer (Ef fective 2022-Present) Name:Melissa Gallagher Relation to Subscriber:Self Name:Melissa Gallagher Payer ID:Not on file Group ID:Not on file Type:Medicare Address: [address] MEDICARE PART A & B [employer] PPO MEDICARE REPLACEMENT MEDICARE PART A & B O MEDICARE REPLACEMENT MEDICARE PART A & B [address] [place], [place] [id number] MEDICARE REPLACEMENT MEDICARE PART A & B PPO MEDICARE REPLACEMENT MEDICARE PART A & B [address] [place], [place] [id number] MEDICARE REPLACEMENT MEDICARE PART A & B [facility] MEDICARE REPLACEMENT MEDICARE PART A & B [facility] [place]PO [place] [address] Care Teams Farm Appraiser Relationship Specialty Start Date End Date Nga Lee MD 175 [facility] 200 [place] [address] PCP - General 02/25/18 Additional Source Comments The information contained in this document represents components of the legal health record. It is not the complete legal health record.[facility]
--- OUTSIDE RECORDS SUMMARY | 2025-08-04 07:04 | XMS_ITS | Clinical Summary ---
Author Organization [facility] Address [address] [place] [address] Care Team Providers Care Patient Care Nursing Assistant Name Role Phone Unavailable Primary Care Provider Unavailabl e Social History Tobacco Use Types Packs/Day Years Used Date Smoking Tobacco: Never Assessed Sex and Gender Information Value Date Recorded Sex Assigned at Male 12/21/2019 7:33 AM EDT Gender Identity Not on file Sexual Orientation Not on file Plan of Treatment Not on file
--- OUTSIDE RECORDS SUMMARY | 2025-08-04 07:04 | XMS_ITS | Encounter Summary ---
Author Organization [facility] Address [address] [place] [address] Phone Care Team Providers Care Pet House Sitter Name Role Phone Nga Lee MD Primary Care Provider [phone] Encounter Details Date Type Department Care Team (Latest Contact Info) Description 02/25/2018 Transcribe Orders [facility] [address] [facility] 3rd Floor, [address] [place] [address] Lian Thomas MD 230 [facility] 1 [place] [address] Chest pain, unspecified type (Primary Dx) Social [...] Primary documented in this encounter Care Teams Pet House Sitter Relationship Specialty Start Date End Date Nga Lee MD [address] [facility] [address] [place] [address] PCP - General 02/25/18 documented as of this encounter Additional Source Comments The information contained in this document represents components of the legal health record. It is not the complete legal health record.[facility]
[2025-08-04 07:13] LABS: MANUAL DIFF FLAG NO
[2025-08-04 07:54] LABS: Hematocrit 39.5 % (42.0-52.0); Hemoglobin 13.6 g/dl (14.0-18.0); Imm Gran Abs Auto 0.01 X10*3/uL (0.00-0.03); Imm Gran Pct Auto 0.2 % (0.0-0.4); Lymphocytes Absolute Auto 2.3 X10*3/uL (1.2-4.9); Mean Corpuscular HGB Conc 34.4 g/dl (31.0-36.0); Mean Corpuscular Hemoglobin 30.6 pg (27.0-33.0); Mean Corpuscular Volume 89.0 fL (80.0-98.0); NRBC Abs Auto 0.000 X10*3/uL (0.0-0.012); NRBC Pct Auto 0.0 /100WBC (0.0-0.2); Platelet Count 352 X10*3/uL (160-400); Red Blood Count 4.44 X10*6/uL (4.60-5.80); White Blood Count 5.6 X10*3/uL (4.8-10.8)
[2025-08-04 08:00] LABS: Appearance Urine Clear; Glucose Urine UA Negative (Negative); PH 5.5 (5.0-9.0); Specific Gravity - Urine 1.025 (1.005-1.025); UMIC TRIGGER UACC YES
[2025-08-04 08:16] LABS: Alanine Aminotransferase 25 U/L (0-40); Albumin Level 4.2 g/dL (3.5-5.0); Alkaline Phosphatase 102 U/L (39-117); Anion Gap 12 (12-20); Aspartate Amino Transferase 18 U/L (5-37); Blood Urea Nitrogen 6 mg/dL (9-16); Calcium 9.2 mg/dL (8.4-10.2); Carbon Dioxide 30 mmol/L (22-29); Chloride 108 mmol/L (96-108); Cholesterol 203 mg/dL (<200); Estimated Glomerular Filt Rate > 60; HDL Cholesterol 45 mg/dL (>40); Potassium 3.5 mmol/L (3.3-5.1); Sodium 146 mmol/L (135-145); Total Protein 6.9 g/dL (6.5-8.0); Triglycerides 182 mg/dL (<150)
[2025-08-04 08:42] LABS: Prostate Specific Antigen 0.82 ng/mL (<0.05-4.0)
== END 2025-08-04 07:02 | disposition home or self-care (01) ==
LOC: HO.LAB 07:01
PROVIDERS: PCP Internal Medicine; Visit Provider Internal Medicine
DX: Z00.00 Encounter for general adult medical examination without abnormal findings (principal); Z12.5 Encounter for screening for malignant neoplasm of prostate; N40.0 Benign prostatic hyperplasia without lower urinary tract symptoms; D64.9 Anemia, unspecified; E78.00 Pure hypercholesterolemia, unspecified; E55.9 Vitamin D deficiency, unspecified
CPT/HCPCS: 36415; 80053; 80061; 81001; 81003; 82306; 84153; 84443; 85025

== ENCOUNTER 2025-08-07 13:57 | Outpatient (AMB) | payer OTHER, MEDICAID, SELFPAY ==
[2024-09-22 11:24] VITALS: BP 128/72; BP 142/80; BP 144/74; BMI 25.4
--- NOTE | 2025-08-07 14:18 | A.OFFPC_ITS ---
Vital Signs 08/07/25 14:22 08/07/25 15:02 Height 5 ft 9 in Weight 165 lb BMI 24.4 BP 142/90 H 142/100 H Blood Pressure Location Lt brachial Lt brachial Position Sitting Sitting Pulse 64 Pulse Source Pulse Oximeter Pulse Oximetry (%) 97 Oxygen Delivery Method Room Air Intake Visit Reasons: 4 mo follow up Manager Advertising Required: No Accompanied by: Self / Same As Patient Allergies No Known Allergies Allergy (Verified 08/07/25 14:40) Medication List - Last Reconciled 08/07/25 by Gage Cha MD albuterol sulfate 90 mcg/actuation 2 inhalations inhalation Q6H PRN 30 days aspirin 81 mg PO DAILY atorvastatin 80 mg PO DAILY 90 days vmvpholsfs-wumgsiof-gcnwujlarc 160-9-4.8 mcg/actuation (Breztri Aerosphere) 2 inhalations inhalation BID 30 days ezetimibe 10 mg PO DAILY 90 days [Folding Front Wheeled walker Duration: 99 days] losartan 50 mg PO DAILY pantoprazole 40 mg PO DAILY 60 days psyllium husk (Fiber (psyllium husk)) 0.52 grams PO BID PRN 60 days [Shower bench/transfer bench As directed] [Suction grab bars As directed] Tobacco use date assessed: 08/07/25 Dental Screening Dental Screen Date: 08/07/25 Did you have a dental visit in the last 12 months?: Yes Did you have a dental problem in the last 6 months where you did not have access to dental care?: No Was dental information given to patient?: Patient has dentist HPI 4 mo follow up HPI Details Patient comes in today for his follow up visit States that he has painful bunions on both of his feet for a while now He recently tried to get in to see a manager of internal audit but was advised that he needs to get a referral first from his PCP He has also been out of his Atorvastatin for a few days now and for some reason, he could not get it refilled at his local pharmacy States that he has noticed that his blood pressure has been running high consistently for the past few weeks - he has been taking both of his BP meds as prescribed He denies any headaches or dizziness Denies any chest pains, no increased SOB No nausea/vomiting, no abdominal pain No change in bowel habits noted He had his follow up labs done a few days ago - to discuss his results [facility] Medical History Mood disorder Chronic cough Chronic rhinitis Asthma Vitamin D deficiency Encounter for screening for malignant neoplasm of prostate Coronary artery disease Overweight (BMI 25.0-29.9) Seborrheic dermatitis of scalp Cervical disc disease Cardiac murmur Lumbar degenerative disc disease Pure hypercholesterolemia Benign essential hypertension Obstructive sleep apnea Diarrhea Anorexia Nausea Abdominal pain Surgical History History of cardiac cath Hx of colonoscopy History of esophagogastroduodenoscopy (EGD) History of heart artery stent History of fusion of cervical spine S/P rotator cuff surgery Family History Father Hypertension Mother Hypertension Paternal Uncle Colon cancer Social History Housing: House Alcohol intake: current Alcohol intake frequency: a few times a week Alcohol type: beer Patient Tobacco Use Status: Never used Tobacco e-Cigarette/Vaping Use: Never Used Second Hand Smoke Exposure: Yes Substance Use Type: Marijuana service: Yes ([employer]) Current occupational status: disabled 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 1. Little interest or pleasure in doing things: several days 2. Feeling down, depressed, or hopeless: not at all 3. Trouble falling or staying asleep, or sleeping too much: several days 4. Feeling tired or having little energy: several days 5. Poor appetite or overeating: several days 6. Feeling bad about yourself - or that you are a failure or have let yourself or your family down: not at all 7. Trouble concentrating on things, such as reading the newspaper or watching television: several days 8. Moving or speaking so slowly that other people could have noticed. Or the opposite - being so fidgety or restless that you have been moving around a lot more than usual: several days 9. Thoughts that you would be better off or of hurting yourself in some way: not at all Total score: 6 Depression Screening Interpretation: Positive Depression Screening Follow-up: Follow-up Visit Requested Depression Screening Done: Yes Source: Developed by Drs. Brdoy Pat, Brenda Sutton, Patrice Osorio and colleagues, with an educational nayana from [employer]. Thrive Questionnaire Date Thrive assessed: 08/07/25 I am a: Patient What is your living situation today?: I have a steady place to live Within the past 12 months, did the food you bought not last and you didn't have the money to get more?: Sometimes True Within the past 12 months, did you worry whether your food would run out before you got money to buy more?: Sometimes True Do you have trouble paying for medicines?: Yes Do you have trouble getting transportation to medical appointments?: Yes Do you have trouble paying your heating and electricity bill?: Yes Do you have trouble taking care of your child, family member or friend?: No Do you have trouble with day-to-day activities such as bathing, preparing meals, shopping, managing finances, etc.?: Yes Are you currently unemployed and looking for a job?: No Are you interested in more education?: Yes Currently or been in a relationship where the following occur: No concerns reported THRIVE Score: 4 AUDIT C Alcohol Use Questionnaire (AUDIT-C) 1. How often do you have a drink containing alcohol?: 2-3 times a week 2. How many drinks containing alcohol do you have on a typical day when you are drinking?: 1 or 2 3. How often do you have six or more drinks on one occasion?: Never Total Score: 3 Score Reviewed/Action Taken: Yes LAWRENCE-7 AMB Questionnaire LAWRENCE-7 Date LAWRENCE - 7 assessed: 08/07/25 Feeling nervous, anxious, or on edge: 1 = Several days Not being able to stop or control worryin = Several days Worrying too much about different things: 1 = Several days Trouble relaxin = Several days Being so restless that it is hard to sit still: 1 = Several days Becoming easily annoyed or irritable: 1 = Several days Feeling afraid as if something awful might happen: 0 = Not at all Total LAWRENCE-7 score (0-4 normal; 5-9 mild; 10-14 moderate; 15-21 severe): 6 Source: Developed by Drs. Brody Pat, Brenda Sutton, Patrice Osorio and colleagues, with an educational nayana from [employer]. Review of Systems Const Denies chills, Denies fatigue, Denies fever(s) and Denies headache(s) ENT Denies dysphagia, Denies dizziness, Denies otalgia, Denies headache(s), Denies neck pain, Denies odynophagia and Denies sore throat Card Denies chest pain, Denies rapid heart rate, Denies irregular heart rhythm, Denies palpitations and Denies dyspnea Resp Denies chest congestion, Denies cough, Denies dyspnea and Denies wheezing GI Denies abdominal pain, Denies constipation, Denies dysphagia, Denies heartburn, Denies diarrhea, Denies nausea, Denies odynophagia and Denies vomiting Denies difficulty urinating, Denies dysuria and Denies urinary frequency Musc Denies back pain, Denies arthralgias (but right knee feels weak (see HPI)) and Denies neck pain Skin/Breast Denies rash Neuro Denies dizziness, Denies headache(s) and Denies paresthesias Endo Denies fatigue and Denies palpitations Aller/Immun Denies wheezing Physical exam (Primary Care) Vital Signs: Last Vital Signs Pulse 64 08/07/25 14:22 BP 142/100 H 08/07/25 15:02 Pulse Ox 97 08/07/25 14:22 Oxygen Delivery Method Room Air 08/07/25 14:22 BMI result Body Mass Index 24.4 Tobacco/Smoking Status: Tobacco use Status Tobacco use date assessed 08/07/25 08/07/25 14:25 Patient Tobacco Use Status Never used Tobacco 08/07/25 14:20 e-Cigarette/Vaping Use Never Used 08/07/25 14:20 PHQ-9: PHQ-9 Score PHQ-9: Total score 6 08/07/25 14:48 Depression Screening Interpretation: Positive Depression Screening Follow-up: Follow-up Visit Requested Thrive Assessment: Date of Thrive Assessment Date Thrive assessed 08/07/25 08/07/25 14:25 Currently or been in a relationship where the following occur: No concerns reported Const General: no acute distress and alert HENMT Ears: TM's normal bilaterally and EAC's normal Throat: Yes posterior oropharynx normal and Yes tonsils normal (no TP congestion) Neck Neck: Yes supple and No lymphadenopathy Thyroid: Thyroid normal Resp Auscultation: clear to auscultation bilaterally, no rales and no wheezes Cardio Rate: regular rate Rhythm: regular rhythm Heart sounds: no murmurs GI Palpation (GI): Soft to palpation and nontender Auscultation: normal bowel sounds General: Yes no CVA tenderness Back/Spine/Pelvis Back: no CVA tenderness Thoracic/Lumbar Spine: No lumbar spinal tenderness Skin Rashes: no rashes Extrem Other: (+) painful bunion on both big toes General: Yes no clubbing, cyanosis or edema Results Reviewed Results Reviewed: Laboratory Tests 08/04/25 08/04/25 07:06 07:11 WBC 5.6 Hgb 13.6 L Hct 39.5 L Plt Count 352 Sodium 146 H Potassium 3.5 D Creatinine 0.92 Estimated GFR > 60 Fasting Glucose 104 H Calcium 9.2 AST 18 ALT 25 Triglycerides 182 H Cholesterol 203 H LDL Cholesterol, Calc 122 H HDL Cholesterol 45 Prostate Specific Ag 0.82 25-OH Vitamin D Total 10.6 L TSH 1.20 Ur Specific [place] 1.025 Urine Protein Trace Urine Glucose (UA) Negative Urine Blood Trace H Urine Nitrite Negative Ur Leukocyte Esterase Negative Coding Level of Care Code Complex visit Add On G2211 Diagnoses Coronary artery disease involving [place] coronary artery of [place] heart without angina pectoris I25.10 Associated angina: without angina Coronary Disease-Associated Artery/Lesion type: [place] artery Lime vs. transplanted heart: [place] heart Pure hypercholesterolemia E78.00 Essential hypertension I10 Obstructive sleep apnea G47.33 Moderate persistent asthma without complication J45.40 Asthma complication type: uncomplicated Asthma persistence: persistent Asthma severity: moderate Vitamin D deficiency E55.9 Degeneration of intervertebral disc of lumbar region with discogenic back pain M51.360 Disc-related pain type: discogenic back pain only Closed fracture of right tibial plateau, sequela S82.141S Encounter type: sequela Fracture type: closed Bunion M21.619 Mood disorder F39 Assessment & Plan Assessment & Plan (1) Coronary artery disease: Comment: follows w/HCS Code(s): I25.10 - Atherosclerotic heart disease of [place] coronary artery without angina pectoris Category: Medical Qualifiers: Associated angina: without angina Coronary Disease-Associated Artery/Lesion type: [place] artery [place] vs. transplanted heart: [place] heart Qualified Code(s): I25.10 - Atherosclerotic heart disease of [place] coronary artery without angina pectoris Plan: (+) Hx of PCI in the past Extended Holter monitor showed baseline rhythm is sinus; stress testing in mid 2020 came out mostly normal except for mild to moderate intensity inferolateral and lateral ischemia in the circumflex territory Patient ended up having cardiac catheterization done in 07/2021 that revealed only mild CAD involving the proximal LAD; no significant CAD otherwise Continue Aspirin 81 mg QD and aggressive risk factor modification Repeat EKG done in the office back in September 2022 revealed (+) sinus rhythm, with marked LAD, LAFB with no acute ST-T wave changes noted Follow up with cardiology as scheduled (2) Pure hypercholesterolemia: Code(s): E78.00 - Pure hypercholesterolemia, unspecified Category: Medical Plan: Results of his labs done a few days ago reviewed and discussed with patient Reinforced low cholesterol diet Continue Atorvastatin 80 mg QD (Rx refilled) and Ezetimibe 10 mg QD He was also supposed to be on Fenofibrate 145 mg QD but it looks like he stopped taking this a while ago (patient himself is not sure why) - his serum TG not surprisingly has gone up from previous Will recheck his labs and fasting lipids in 4 months for follow up (3) Essential hypertension: Code(s): I10 - Essential (primary) hypertension Category: Medical Plan: Reinforced low sodium diet - goal is systolic BP of 120 mm or less Continue HCTZ 25 mg QD; will have patient increase his Losartan to 75 mg (1.5 tablets) QD Patient is reminded to continue monitoring his blood pressure regularly (4) Obstructive sleep apnea: Code(s): G47.33 - Obstructive sleep apnea (adult) (pediatric) Category: Medical Plan: He continues to use his CPAP device when sleeping at night and relates that he has been feeling a lot better since going back on it Follow up with pulmonary and with sleep medicine as scheduled (5) Asthma: Code(s): J45.909 - Unspecified asthma, uncomplicated Category: Medical Qualifiers: Asthma complication type: uncomplicated Asthma persistence: persistent Asthma severity: moderate Qualified Code(s): J45.40 - Moderate persistent asthma, uncomplicated Plan: Continue Breztri Aerosphere 160-9-4.8 mcg 2 inhalations BID - he was switched over to this by pulmonary last year as he could not afford the co-pay for his previous Symbicort inhaler Continue Albuterol HFA 2 inhalations Q 6 hours PRN Follow up with pulmonary as scheduled (6) Vitamin D deficiency: Code(s): E55.9 - Vitamin D deficiency, unspecified Category: Medical Plan: His Vitamin D level was low when last checked a couple of years ago but patient is no longer taking any Vitamin D supplements It is again very low at around 10 on his recent labs Will have him start back on Vitamin D3 2000 units QD (7) Lumbar degenerative disc disease: Code(s): M51.36 - Other intervertebral disc degeneration, lumbar region Category: Medical Qualifiers: Disc-related pain type: discogenic back pain only Qualified Code(s): M51.360 - Other intervertebral disc degeneration, lumbar region with discogenic back pain only Plan: Reinforced activity and weight-lifting restrictions Lumbar spine x-rays done last year revealed (+) minimal degenerative changes of the lower lumbar spine. No compression deformity noted We tried sending patient for an MRI of the lumbar spine for further evaluation but this was denied by his insurance Patient states that he has been using a back brace that he bought on [employer] when needed - felt that the brace was helping before but not as much recently Continue Gabapentin 300 mg Q HS (8) Tibial plateau fracture, right: Code(s): S82.141A - Displaced bicondylar fracture of right tibia, initial encounter for closed fracture Category: Medical Qualifiers: Encounter type: sequela Fracture type: closed Qualified Code(s): S82.141S - Displaced bicondylar fracture of right tibia, sequela Plan: Patient sustained this injury when he fell on his knee back on 04/07/2024 He was seen by orthopedics and was recommended conservative management with no surgery needed He completed physical therapy sometime late last year, which he states helped at the time but he continues to experience frequent sensations of knee weakness and 'buckling' He has been advised by orthopedics that he may eventually require total knee a rthroplasty but patient would like to hold off on this for as long as possible Follow up with orthopedics as scheduled (9) Bunion: Code(s): M21.619 - Bunion of unspecified foot Category: Medical Plan: Involving the big toes of both feet Will refer him to podiatry for further evaluation and management (10) Mood disorder: Code(s): F39 - Unspecified mood [affective] disorder Category: Medical Plan: Patient again appears clinically depressed, based on his PHQ-9 questionnaire results, but he continues to decline any Rx or Tx at this time Plan Follow up in 4 months Orders: Orders Complete Blood Count Auto Diff 4 Months D64.9 - Anemia, unspecified Comprehensive [place]. Panel Fast 4 Months E78.00 - Pure hypercholesterolemia, unspecified Lipid Panel 4 Months E78.00 - Pure hypercholesterolemia, unspecified Vitamin D 25-OH Total 4 Months E55.9 - Vitamin D deficiency, unspecified TSH reflex Free T4 4 Months E78.00 - Pure hypercholesterolemia, unspecified UA CC w/rflx Micro + Cult 4 Months R30.0 - Dysuria Referrals Podiatry Referral M21.619 - Bunion of unspecified foot Medications: New cholecalciferol (vitamin D3) 50 mcg PO DAILY 90 caps 3RF 90 days E55.9 - Vitamin D deficiency, unspecified Changed From losartan 50 mg PO DAILY 90 tabs 0RF I10 - Essential (primary) hypertension To losartan 75 mg (1.5 x 50 mg) PO DAILY 135 tabs 1RF 90 days I10 - Essential (primary) hypertension Refilled atorvastatin 80 mg PO DAILY 90 tabs 3RF 90 days E78.00 - Pure hypercholesterolemia, unspecified
[2025-08-07 14:22] VITALS: BP 142/90; PULSE 64; O2SAT 97; BMI 24.4
[2025-08-07 15:02] VITALS: BP 142/100
--- OUTSIDE RECORDS SUMMARY | 2025-08-07 18:54 | XMS_ITS | Clinical Summary ---
Author Organization [facility] it Address [address] [place] [address] Care Team Providers Care Orthopedics Nurse Name Role Phone Nga Lee MD Primary Care Provider [phone] Surgical History Surgery Date Site/Laterality Comments CERVICAL [...] age to complete this topic Care Teams Orthopedics Nurse Relationship Specialty Start Date End Date Nga Lee MD PCP - General Internal Medicine 06/29/18
--- OUTSIDE RECORDS SUMMARY | 2025-08-07 18:54 | XMS_ITS | Clinical Summary ---
Author Organization [facility] Address [address] [facility] [address] [place] [address] Phone Care Team Providers Care Wood Heel Flap Inserter Name Role Phone Nga Lee MD Primary [...] file Insurance MEDICARE PART A & B [facility] MEDICARE REPLACEMENT MEDICARE PART A & B [employer] PPO MEDICARE REPLACEMENT Member Subscriber Plan / Payer (Ef fective 2022-Present) Name:Melissa Gallagher Relation to Subscriber:Self Name:Melissa Gallagher Payer ID:Not on file Group ID:Not on file Type:Medicare Address: [address] MEDICARE PART A & B [employer] PPO MEDICARE REPLACEMENT MEDICARE PART A & B O MEDICARE REPLACEMENT MEDICARE PART A & B [address] [place], [place] [id number] MEDICARE REPLACEMENT MEDICARE PART A & B PPO MEDICARE REPLACEMENT MEDICARE PART A & B [address] [place], [place] [id number] MEDICARE REPLACEMENT MEDICARE PART A & B [facility] MEDICARE REPLACEMENT MEDICARE PART A & B [facility] PPO MEDICARE REPLACEMENT Care Teams Wood Heel Flap Inserter Relationship Specialty Start Date End Date Nga Lee MD [address] [facility] [address] [place] [address] PCP - General 02/25/18 Additional Source Comments The information contained in this document represents components of the legal health record. It is not the complete legal health record.[facility]
--- OUTSIDE RECORDS SUMMARY | 2025-08-07 18:54 | XMS_ITS | Encounter Summary ---
Author Organization [facility] Address [address] [place] [address] Phone Care Team Providers Care Chief Fundraising Officer Name Role Phone Nga Lee MD Primary Care Provider [phone] Encounter Details Date Type Department Care Team (Latest Contact Info) Description 03/08/2018 Ancillary Orders [facility] [address] [facility] 3rd Floor, [address] [place] [address] Lian Thomas MD 230 [facility] 1 [place] [address] Chest pain, unspecified type Social History Tobacco [...] and will be reported separately. Anh Valentino BUSINESS PRACTICES SUPERVISOR . Stress Function Comments Post-stress ejection fraction [...] type documented in this encounter Care Teams Chief Fundraising Officer Relationship Specialty Start Date End Date Nga Lee MD 175 [facility] 200 [place] [phone] PCP - General 02/25/18 documented as of this encounter Additional Source Comments The information contained in this document represents components of the legal health record. It is not the complete legal health record.[facility]
--- OUTSIDE RECORDS SUMMARY | 2025-08-07 18:54 | XMS_ITS | Clinical Summary ---
Author Organization [facility] Address [address] [place] [address] Care Team Providers Care Sales And Service Consultant Name Role Phone Unavailable Primary Care Provider Unavailabl e Social History Tobacco Use Types Packs/Day Years Used Date Smoking Tobacco: Never Assessed Sex and Gender Information Value Date Recorded Sex Assigned at Male 12/21/2019 7:33 AM EDT Gender Identity Not on file Sexual Orientation Not on file Plan of Treatment Not on file
--- OUTSIDE RECORDS SUMMARY | 2025-08-07 18:54 | XMS_ITS | Encounter Summary ---
Author Organization [facility] Address [address] [place] [address] Phone Care Team Providers Care Tile Mechanic Name Role Phone Nga Lee MD Primary Care Provider Encounter Details Date Type Department Care Team (Latest Contact Info) Description 02/25/2018 Transcribe Orders [facility] 22 [facility] 3rd Floor, [address] [place] [address] Lian Thomas MD 230 [facility] 1 [place] [address] Chest pain, unspecified type (Primary Dx) Social [...] Primary documented in this encounter Care Teams Tile Mechanic Relationship Specialty Start Date End Date Nga Lee MD [address] [facility] 200 [place] [phone] PCP - General 02/25/18 documented as of this encounter Additional Source Comments The information contained in this document represents components of the legal health record. It is not the complete legal health record.[facility]
== END 2025-08-07 15:29 | disposition home or self-care (01) ==
LOC: HO.HMCH 13:59
PROVIDERS: PCP Internal Medicine; Visit Provider Internal Medicine
DX: I25.10 Atherosclerotic heart disease of native coronary artery without angina pectoris (principal); E78.00 Pure hypercholesterolemia, unspecified; I10 Essential (primary) hypertension; G47.33 Obstructive sleep apnea (adult) (pediatric); J45.40 Moderate persistent asthma, uncomplicated; E55.9 Vitamin D deficiency, unspecified; M51.360 Other intervertebral disc degeneration, lumbar region with discogenic back pain only; S82.141S Displaced bicondylar fracture of right tibia, sequela; M21.619 Bunion of unspecified foot; F39 Unspecified mood [affective] disorder

== ENCOUNTER 2025-09-12 12:59 | Outpatient (AMB) | payer OTHER, MEDICAID, SELFPAY ==
[2025-09-05 10:55] VITALS: BP 128/72; BP 142/80; BP 144/74; BMI 25.4
[2025-09-12 13:24] VITALS: BMI 24.7
--- NOTE | 2025-09-12 13:24 | A.OFFVIS_ITS ---
Vital Signs 09/12/25 13:24 Height 5 ft 9 in Weight 167 lb BMI 24.7 Intake Visit Reasons: Bilateral foot bunions Intake Note: Melissa is a 59 yea old male who presents today as a new patient for an evaluation of his bilateral bunions. Patient reports the bunions has been going on for a couple of years and he has not had any previous treatment. No imaging in patients chart. Patient experiences pain on the bunion site. Allergies lactose Allergy (Verified 09/19/25 10:38) Gastrointestinal Upset HPI Comments Details: The patient is a 59 year old male With a past medical history as seen below presenting with bilateral painful bunion, left worse than right. He has had foot pain for a couple of years and previously received a cortisone shot which provided mild relief. The pain is intermittent and primarily affects the left foot, which can become tender. He reports associated numbness, tingling, and a painful cracking sensation in the toes. The patient has a history of arthritis and is scheduled for a knee replacement on October 10. He also has a history of left leg sciatica that has been bothering him for some time. He previously fell and broke his knee, for which he uses a brace. His only medication is a low-dose aspirin prescribed by his ceramics engineer. He does not go barefoot at home. he denies any other pedal concerns. He denies any other pedal injuries. [facility] Medical History Bilateral foot pain Bilateral bunions Headache Osteoarthritis GERD (gastroesophageal reflux disease) Anxiety Numbness and tingling in both hands COPD (chronic obstructive pulmonary disease) Mood disorder Chronic cough Chronic rhinitis Asthma Vitamin D deficiency Encounter for screening for malignant neoplasm of prostate Coronary artery disease Overweight (BMI 25.0-29.9) Seborrheic dermatitis of scalp Cervical disc disease Cardiac murmur Lumbar degenerative disc disease Pure hypercholesterolemia Benign essential hypertension Obstructive sleep apnea Diarrhea Anorexia Nausea Abdominal pain Surgical History History of cardiac cath Hx of colonoscopy (07/07/25) History of esophagogastroduodenoscopy (EGD) (2020) History of heart artery stent History of fusion of cervical spine S/P rotator cuff surgery (~2016) Family History Father Hypertension Mother Hypertension Paternal Uncle Colon cancer Social History Household Members: Family Housing: House Are you a primary career center director to a significant other at home: No Do you presently have visiting nurse or other home services: Yes (REED MAN daughter) 75 years or older and lives alone: No Alcohol intake: current Alcohol intake frequency: a few times a week Alcohol type: beer Comment: brace on right knee Patient Tobacco Use Status: Former Tobacco user Tobacco use type: Cigarette e-Cigarette/Vaping Use: Never Used Second Hand Smoke Exposure: Yes Substance Use Type: Marijuana service: Yes ([employer]) Current occupational status: disabled 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 - Neurological: Reports numbness and tingling in the feet. All systems reviewed & are unremarkable except as noted in HPI and below Physical Exam Vital Signs: BMI result Body Mass Index 24.7 Extrem Other: B/L LE Focused Physical Exam: Derm: No open lesions, abrasions, or wounds noted. No ecchymosis, erythema, or discoloration noted. Skin supple and turgor WNL. No maceration or hyperkeratotic areas noted. No clinical signs of infection noted. Vasc: DP/PT pulses palpable. CFT < 3 secs. Temp gradient warm to warm. Pedal hair present. No varicosities noted. Neuro: Protective sensations grossly intact to light touch, but patient reports numbness and tingling in the feet. MSK: Pain on palpation to the 1st MPJs, worse to the left. Pain with ROM of the 1st MPJs with mild crepitus noted, reduced ROM to the right. HAV noted B/L worse to the left. No other gross abnormalities noted. Mildly antalgic gait noted. ROM of the hindfoot and ankles WNL. Results Reviewed Results Reviewed: Ordered B/L right foot weightbearing 3 view xrays to be performed prior to the next visit. Assessment & Plan Assessment & Plan (1) Bilateral foot pain: Code(s): M79.671 - Pain in right foot; M79.672 - Pain in left foot Category: Medical (2) Bilateral bunions: Code(s): M21.611 - Bunion of right foot; M21.612 - Bunion of left foot Category: Medical Plan Patient was informed and verbally consented to the use of an ambient scribe for clinic note documentation during this visit. I discussed with the patient that his symptoms, including the cracking sensation, are likely associated with arthritis and his bunions. I explained that while the only definitive treatment for a bunion is surgery, the current plan is to manage his pain conservatively. I have ordered X-rays to better determine if the bunions. Considering his upcoming knee replacement, I prescribed Tylenol for pain, as it should not interfere with the procedure, and recommended a bunion sleeve for cushioning. We will have a follow-up appointment in six weeks to allow for his recovery, at which point we will review the X-ray findings and discuss further treatment for the bunion. - Ordered B/L foot xrays to be performed prior to next visit. - Prescribed Tylenol prn for pain. - It was recommended that the patient use a bunion sleeve for cushioning. - The patient was advised to wear supportive shoes and avoid going barefoot. - Further discussion of bunion treatment options, including surgery, will occur after the knee surgery recovery and review of X-ray results. RTC in 6 weeks. Orders: Orders XR Foot Kwan 3V 09/12/25 M21.611 - Bunion of right foot, M21.612 - Bunion of left foot, M79.671 - Pain in right foot, M79.672 - Pain in left foot Medications: New acetaminophen ER (Tylenol Arthritis Pain) 650 mg PO Q12H PRN 60 tabs 0RF pain M21.611 - Bunion of right foot, M21.612 - Bunion of left foot, M79.671 - Pain in right foot, M79.672 - Pain in left foot Coding Level of Care Code New Pt Level 4 (67121) Diagnoses Bilateral foot pain M79.671; M79.672 Bilateral bunions M21.611; M21.612 Time Spent (min) 46
--- OUTSIDE RECORDS SUMMARY | 2025-09-12 16:55 | XMS_ITS | Encounter Summary ---
Author Organization [facility] Address [address] [place] [address] Phone Care Team Providers Care Supervisor Paint Department Name Role Phone Nga Lee MD Primary Care Provider Encounter Details Date Type Department Care Team (Latest Contact Info) Description 02/25/2018 Transcribe Orders [facility] 22 [facility] 3rd Floor, [address] [place] [address] Lian Thomas MD 230 [facility] 1 [place] [address] Chest pain, unspecified type (Primary Dx) Social [...] Primary documented in this encounter Care Teams Supervisor Paint Department Relationship Specialty Start Date End Date Nga Lee MD [address] [facility] [address] [facility] 200 [place] [phone] PCP - General 02/25/18 documented as of this encounter Additional Source Comments The information contained in this document represents components of the legal health record. It is not the complete legal health record.[facility]
--- OUTSIDE RECORDS SUMMARY | 2025-09-12 16:55 | XMS_ITS | Encounter Summary ---
Author Organization [facility] Address [address] [place] [address] Phone Care Team Providers Care Air Traffic Control Supervisor Name Role Phone Nga Lee MD Primary Care Provider Encounter Details Date Type Department Care Team (Latest Contact Info) Description 03/08/2018 Ancillary Orders [facility] [address], [address] [place] [address] Lian Thomas MD 230 [facility] 1 [place] [address] Chest pain, unspecified type Social History Tobacco [...] and will be reported separately. 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 Stress Function Comments Post-stress ejection [...] type documented in this encounter Care Teams Air Traffic Control Supervisor Relationship Specialty Start Date End Date Nga Lee MD 175 [facility] 200 [place] [address] PCP - General 02/25/18 documented as of this encounter Additional Source Comments The information contained in this document represents components of the legal health record. It is not the complete legal health record.[facility]
--- OUTSIDE RECORDS SUMMARY | 2025-09-12 16:55 | XMS_ITS | Clinical Summary ---
Author Organization [facility] Address [address] [facility] [address] [place] [address] Phone Care Team Providers Care Director Of Product Development Name Role Phone Nga Lee MD Primary [...] file Insurance MEDICARE PART A & B Member Subscriber Plan / Payer (Ef fective 2022-Present) Name:Melissa Gallagher Member ID:[id number] Relation to Subscriber:Self Name:Melissa Gallagher Subscriber ID:[id number] Payer ID:[id number] Group ID:Not on file Type:Medicare Address: [facility] [employer] [facility] [address] [facility] [place] [address] [facility] MEDICARE REPLACEMENT MEDICARE PART A & B [employer] PPO MEDICARE REPLACEMENT Member Subscriber Plan / Payer (Ef fective 2022-Present) Name:Melissa Gallagher Relation to Subscriber:Self Name:Melissa Gallagher Payer ID:Not on file Group ID:Not on file Type:Medicare Address: [address] MEDICARE PART A & B [employer] PPO MEDICARE REPLACEMENT MEDICARE PART A & B O MEDICARE REPLACEMENT MEDICARE PART A & [place] [address] [place] [id number] MEDICARE REPLACEMENT MEDICARE PART A & B PPO MEDICARE REPLACEMENT MEDICARE PART A & B [address] [place], [place] [id number] MEDICARE REPLACEMENT MEDICARE PART A & B [facility] MEDICARE REPLACEMENT MEDICARE PART A & B [facility] PPO MEDICARE REPLACEMENT Care Teams Director Of Product Development Relationship Specialty Start Date End Date Nga Lee MD 175 [facility] 200 [place] [address] PCP - General 02/25/18 Additional Source Comments The information contained in this document represents components of the legal health record. It is not the complete legal health record.[facility]
--- OUTSIDE RECORDS SUMMARY | 2025-09-12 16:55 | XMS_ITS | Clinical Summary ---
Author Organization [facility] Address [address] [place] [address] Care Team Providers Care Assurance Auditor Name Role Phone Nga Lee MD Primary Care Provider [phone] Surgical History Surgery Date Site/Laterality Comments CERVICAL [...] Orientation Not on file Plan of Treatment Health Maintenance Due Date [...] age to complete this topic Care Teams Assurance Auditor Relationship Specialty Start Date End Date Nga Lee MD PCP - General Internal Medicine 06/29/18
--- OUTSIDE RECORDS SUMMARY | 2025-09-12 16:55 | XMS_ITS | Clinical Summary ---
Author Organization [facility] [employer] [facility] Prior to 02/11/25 Address [address] [place] [address] Care Team Providers Care Pattern Changer Name Role Phone Unavailable Primary Care Provider Unavailabl e Social History Tobacco Use Types Packs/Day Years Used Date Smoking Tobacco: Never Assessed Sex and Gender Information Value Date Recorded Sex Assigned at Male 12/21/2019 7:33 AM EDT Gender Identity Not on file Sexual Orientation Not on file Plan of Treatment Not on file
== END 2025-09-12 13:52 | disposition home or self-care (01) ==
LOC: HO.HPODS 13:00
PROVIDERS: PCP Internal Medicine; Visit Provider Student in an Organized Health Care Education/Training Program
DX: M79.671 Pain in right foot (principal); M79.672 Pain in left foot; M21.611 Bunion of right foot; M21.612 Bunion of left foot
CPT/HCPCS: 99204